=== PATIENT | male | born 1940 | race Caucasian/White ===

== ENCOUNTER 2016-12-04 11:18 | Observation (INO) ==
[2016-12-04] MEDS ORDERED: PROMETHAZINE 25 MG/1 ML VIAL IM STA (11:46)
[2016-12-04] MEDS ORDERED: MEPERIDINE 50 MG/1 ML VIAL IM STA (11:46)
[2016-12-04] MEDS ORDERED: DEXAMETHASONE 4 MG/1 ML VIAL IM STA (11:47)
[2016-12-04] MEDS ORDERED: PROMETHAZINE 25 MG/1 ML VIAL ONE (11:52)
[2016-12-04] MEDS ORDERED: MEPERIDINE 50 MG/1 ML VIAL ONE (11:52)
[2016-12-04] MEDS ORDERED: DEXAMETHASONE 4 MG/1 ML VIAL ONE (11:52)
[2016-12-04] MEDS ORDERED: ONDANSETRON 4 MG/2 ML VIAL IV PRN (12:16)
[2016-12-04] MEDS ORDERED: HYDROmorphone 2 MG/1 ML VIAL IV PRN (12:16)
[2016-12-04] MEDS ORDERED: ACETAMINOPHEN 325 MG TABLET PO PRN (12:16)
--- NOTE | 2016-12-04 12:24 | Emergency Department Note ---
Addendum entered and electronically signed by Deion Purcell MD 12/04/16 12:14: Patient does not want to go home and wants to be admitted to the hospital. Patient discussed with Dr. Abbott and will admit for a pain management and a pain management consult. Original Note: Lázaro Villatoro Hilary, am scribing for, and in the presence of, Deion Purcell MD 11:46. Binh Villatoro Phillip K, MD, personally performed the services described in this documentation, ascribed by Maria Elena Sesay in my presence, and it is both accurate and complete . Arrival - Arrival Chief Complaint: Back Stated Complaint: back ED Nursing Triage Note: Pt comes from home with chronic back pain. Pt received 100mcg fentanyl prior to arrival. Pt has known sciatica nerve pain that radiates down the right leg. Mode of Arrival: Stretcher Limitations: No Limitations Source: Patient, RN Notes Reviewed - History of Present Illness HPI Narrative: Pt is a 76 y/o male brought into the ED via EMS with c/o chronic back pain which onset 3 weeks ago. Per EMS he received 100mcg fentanyl prior to arrival. Pt confirms back pain with radiation down left leg but denies any He reports taking ibuprofen, flexeril, prednisone, tramadol. Pt has a PMHx of sciatica nerve pain, dyslipidemia. No other complaints or problems stated in the ED. Allergies/Adverse Reactions: Allergies Allergy/AdvReac Type Severity Reaction Status Date / Time No Known Allergies Allergy Verified 12/03/16 07:10 Home Medications: Home Medications Medication Instructions Recorded Confirmed Type Levothyroxine Tab [Synthroid Tab] 75 mcg PO DAILY@0700 02/27/15 12/04/16 History Meloxicam 7.5 mg PO DAILY 02/27/15 12/04/16 History Simvastatin 40 mg PO DAILY 02/27/15 12/04/16 History Terazosin [Hytrin] 5 mg PO BEDTIME 02/27/15 12/04/16 History traMADol TAB [Ultram] 50 mg PO DIRECTED PRN 12/02/16 12/04/16 History Oxycodone HCl/Acetaminophen 1 each PO Q6HR PRN #30 tablet 12/04/16 Rx [Percocet 7.5-325 mg Tablet] Medical,Surgical,& Family Hx - Medical History Neurology: No history of: Seizures HEENT: History of: Eye Problem (GLASSES/CATARACTS/MACULAR DEGENERATION RT-No Sight) Endocrine: History of: Dyslipidemia, Thyroid Disorder Respiratory: Comment Only: Respiratory Problems (FLU VAC Apr 2016 with Pneum Vac) Genitourinary: History of: Prostate Problems (BPH) Gastrointestinal: History of: Diverticulitis/ Diverticulosis (OVER 10-12 YRS AGO ), Polyps (X2) Musculoskeletal: History of: Back/Neck Problems (Due for MRI 12/11/16; Low Back Pain Radiating down Lt Leg), Musculoskeletal Problems (ARTHRITIS) Hematology: No history of: Blood Transfusion Reaction (BLOOD TRANSFUSIONS) Other: No history of: Anesthesia Reactions, Cancer - Surgical History HEENT Surgeries: Surgical HX of: Eye Surgery (CATARACT LT EYE 02/28/15; 12/03/16 Sched for Rt Cataract), Tonsilectomy & Adenoidectomy Abdominal Surgeries: Surgical HX of: Abdominal Surgery, Colonoscopy ([place]), Hernia Repair (X3 UMBILICAL/RT & LT INGUINAL) - Family History Family History: Reports;: Family Cancer (FATHER) - Social History Smoking Status: Current every day smoker Frequency of Alcohol Use: None Type of Drug Use: None Exam Vital Signs: Vital Signs Temperature 96.4 F L 12/04/16 11:20 Pulse Rate 62 12/04/16 11:20 Respiratory Rate 20 12/04/16 11:20 Blood Pressure 152/62 12/04/16 11:20 O2 Sat by Pulse Oximetry 98 12/04/16 11:20 - General General appearance: alert, in no apparent distress - Head Head exam: Present: atraumatic, normocephalic - Eye Eye exam: Present: normal appearance, PERRL, EOMI - ENT ENT exam: Present: mucous membranes moist, TM's normal bilaterally. Absent: mucous membranes dry - Neck Neck exam: Present: full ROM, trachea midline. Absent: tenderness - Chest Chest inspection: Present: symmetric chest wall rise. Absent: tenderness - Respiratory Respiratory exam: Present: normal lung sounds bilaterally. Absent: respiratory distress - Cardiovascular Cardiovascular exam: Present: regular rate, normal rhythm, normal heart sounds. Absent: murmur, rubs, gallop - Abdominal Exam Abdominal exam: Present: soft, normal bowel sounds. Absent: distention, tenderness - Extremities Exam Extremities exam: Present: full ROM. Absent: tenderness - Back Exam Back exam: Present: full ROM. Absent: tenderness, straight leg raise (L) - Neurological Exam Neurological exam: Present: alert, oriented X3, CN II-XII intact. Absent: motor sensory deficit, reflexes normal (absent left knee jerk) - Psychiatric Psychiatric exam: Present: normal affect, normal mood - Skin Skin exam: Present: warm, dry, intact, normal color. Absent: rash Disposition Clinical Impression: Lumbar radiculopathy Case discussed with: patient, patient's family Disposition: Disch To Home/Self Care Condition: Stable Additional Instructions: Bed rest on firm bed. Heating pad to back. Continue medications. MRI scan next week. Prescriptions: Oxycodone HCl/Acetaminophen [Percocet 7.5-325 mg Tablet] 1 each PO Q6HR PRN #30 tablet PRN Reason: Pain Moderate To Severe (4-10)
[2016-12-04] MEDS ORDERED: traMADol 50 MG TABLET PO PRN (18:41)
--- NOTE | 2016-12-04 19:39 | XRay Report ---
XR lumbar spine complete Indication: Severe low back pain. Comparison: None. Technique: AP, lateral, bilateral oblique images of the lumbar spine with additional spot lateral image of the lumbar sacral junction were submitted. Findings: There is subtle anterolisthesis of L4 on L5 is present. Minimal loss of intervertebral disc space at L3-4 is demonstrated. Loss of facet joint spaces from L3-4 through L5-S1 appears moderate. No acute fractures are present. Diffuse intimal calcification of the aorta and iliac arteries is present. Impression: 1. Degenerative changes are present as detailed. There is no evidence of acute osseous pathology. 12/04/2016 7:35 PM PROCEDURE INTERPRETED AT [facility] DEPARTMENT OF RADIOLOGY Final Report Signed by: Dr. John Medellin
[2016-12-04] MEDS: DOCUSATE SODIUM 100 MG CAPSULE PO SCH (21:16)
[2016-12-04] MEDS: TERAZOSIN 5 MG CAPSULE PO SCH (21:16)
[2016-12-05 05:02] LABS: Apearance,Urine CLEAR (Clear); Bilirubin,Urine Negative (Negative); Blood, Urine Negative (Negative); Glucose,Urine (UA) Negative (Negative); Ketones,Urine Negative (Negative); Mucus,Urine Occasional /LPF (Occasional); Nitrite,Urine Negative (Negative); Protein,Urine Negative; RBC,Urine 3 /HPF (0-4); Urine Color Yellow (Yellow); Urine Specific Gravity 1.018 (1.001-1.035); Urine Urobilinogen < 2.0 EU/DL (0.2-1.0); WBC,Urine <1 /HPF (0-6)
[2016-12-05] MEDS: LEVOTHYROXINE 75 MCG TABLET PO SCH (06:12)
[2016-12-05 06:56] LABS: Basophils % 0.2 % (0.0-0.8); Hemoglobin 16.7 GM/DL (14.0-18.0); Immature Granulocytes Absolute 0.17 #; Lymphocytes # 1.8 10*3/uL (1.4-4.0); Lymphocytes % 10.8 % (21.2-54.2); Mean Corpuscular HGB Conc 34.1 GM/DL (32-36); Mean Corpuscular Hemoglobin 31 PG (27-34); Mean Corpuscular Volume 90.7 FL (87-102); Mean Platelet Volume 10.6 FL (9.6-12.0); Monocytes # 0.8 10*3/uL (0.11-0.8); Neutrophils # 13.6 10*3/uL (1.4-7.4); Platelet Count 248 T/CUMM (130-400); White Blood Count 16.4 T/CUMM (4-12)
[2016-12-05 07:40] LABS: Calcium 8.8 MG/DL (8.5-10.1); Magnesium 2.4 MG/DL (1.8-2.4); Osmolality,Calculated 284.3 MOS/KG (273-304); Potassium 4.8 MMOL/L (3.5-5.1); Risk Ratio 2.76; VLDL CHOLESTEROL 23.2 MG/DL
--- NOTE | 2016-12-05 07:52 | Family Practice History&Phys ---
Assessment and Plan (1) Severe low back pain Status: Acute Assessment and plan: We will admit for pain control MRI and further evaluation Current Visit: Yes (2) Lumbar radiculopathy Status: Acute Assessment and plan: Patient pain radiates into left leg and foot Current Visit: Yes (3) Macular degeneration Status: Chronic Assessment and plan: Stable at present Current Visit: Yes (4) Hyperlipidemia Status: Chronic Assessment and plan: Stable on present meds Current Visit: Yes (5) Hypothyroid Status: Chronic Assessment and plan: Stable at present Current Visit: Yes History of Present Illness Chief complaint: Severe low back pain History of present illness: Mr. Garcia is a 76 year old male Pt is a 76 y/o male brought into the ED via EMS with c/o chronic back pain which onset 3 weeks ago. Per EMS he received 100mcg fentanyl prior to arrival. Pt confirms back pain with radiation down left leg but denies any He reports taking ibuprofen, flexeril, prednisone, tramadol. Pt has a PMHx of sciatica nerve pain, dyslipidemia. No other complaints or problems stated in the time of admission. Patient was unable to stand or move the time of admission. He was brought to the emergency department by ambulance. He was unable to stand or walk. Inferior degree of pain was admitted for evaluation therapy Home Medications Medication Instructions Recorded Confirmed Type Levothyroxine Tab [Synthroid Tab] 75 mcg PO DAILY@0700 02/27/15 12/04/16 History Meloxicam 7.5 mg PO DAILY 02/27/15 12/04/16 History Simvastatin 40 mg PO BEDTIME 02/27/15 12/04/16 History Terazosin [Hytrin] 5 mg PO BEDTIME 02/27/15 12/04/16 History traMADol TAB [Ultram] 50 mg PO DIRECTED PRN 12/02/16 12/04/16 History Moxifloxacin 0.5% Oph Soln 1 drop RIGHT EYE TID 12/04/16 12/04/16 History [Vigamox 0.5% Oph Soln] prednisoLONE acetate [PrednisoLONE 1 drop RIGHT EYE TID 12/04/16 12/04/16 History Acetate 1% Oph Susp] Allergies Allergy/AdvReac Type Severity Reaction Status Date / Time No Known Allergies Allergy Verified 12/03/16 07:10 Medical,Surgical,& Family Hx - Medical History Neurology: No history of: Seizures HEENT: History of: Eye Problem (GLASSES/CATARACTS/MACULAR DEGENERATION RT-No Sight) Endocrine: History of: Dyslipidemia, Thyroid Disorder Respiratory: History of: Obstructive Sleep Apnea (25-30 years ago) Comment Only: Respiratory Problems (FLU VAC Apr 2016 with Pneum Vac) Genitourinary: History of: Prostate Problems (BPH) Gastrointestinal: History of: Diverticulitis/ Diverticulosis (OVER 10-12 YRS AGO ), Polyps (X2) Musculoskeletal: History of: Back/Neck Problems (Due for MRI 12/11/16; Low Back Pain Radiating down Lt Leg), Musculoskeletal Problems (ARTHRITIS) No history of: Amputation Hematology: No history of: Blood Transfusion Reaction (BLOOD TRANSFUSIONS) Other: No history of: Anesthesia Reactions, Cancer - Surgical History Cardiac Surgeries: Patient Denies: Cardiac Catheterization Thoracic Surgeries: Patient denies;: Organ Transplant, Lobectomy Neurologic Surgeries: Patient denies: Neurologic Surgery HEENT Surgeries: Surgical HX of: Eye Surgery (CATARACT LT EYE 02/28/15; 12/03/16 Sched for Rt Cataract), Tonsilectomy & Adenoidectomy Abdominal Surgeries: Surgical HX of: Abdominal Surgery, Colonoscopy ([place]), Hernia Repair (X3 UMBILICAL/RT & LT INGUINAL) - Family History Family History: Reports;: Family Cancer (FATHER) - Social History Smoking Status: Current every day smoker Frequency of Alcohol Use: None Type of Drug Use: None Marital Status: Lives With:: Spouse Functional capacity: independent ambulation Exam - Constitutional Vitals: Period Temp Pulse Resp BP Sys/Hebert Pulse Ox Last 24 Hr 96.4 F-98.2 F 50-76 15-20 125-176/57-82 92-98 General appearance: mild distress - Head Head exam: Present: normal inspection - ENT ENT exam: Present: normal exam - Neck Neck exam: Present: normal inspection - Respiratory Respiratory exam: Present: clear to auscultation bilaterally - Cardiovascular Cardiovascular exam: Present: regular rate and rhythm - GI/Abdominal GI/Abdominal exam: Present: normal bowel sounds, soft - Extremities Exam Extremities exam: Present: full ROM - Back Exam Back exam: Present: other (Decreased range of motion all johnson with positive straight leg raising on the left at 30 positive straight leg raise on the right 40 degrees) - Neurological Exam Neurological exam: Present: alert - Psychiatric Psychiatric exam: Present: normal affect - Skin Skin exam: Present: normal color Results - Labs CBC & BMP: 12/05/16 05:51 12/05/16 05:51
--- NOTE | 2016-12-05 09:13 | Pain Management Consult Note ---
Assessment and Plan (1) Lumbar radiculopathy Problem details: 2-1/2 weeks left lower extremity pain Status: Acute Assessment and plan: 12/05/2016. The patient very pleasant 76-year-old male with 2-1/2 weeks left lower extremity pain. Pain started spontaneously. He has both sensory and motor deficits in the left leg. The motor weakness is minimal. His x-rays demonstrate spondylolisthesis grade 1L45 and L5-S1. Degenerative disc disease and spondylosis present. MRI pending. He likely will respond well to conservative treatment. Will start low-dose Neurontin. He is using minimal as needed opioids at this point. The steroids he received have been helpful. If he continues to do well please consider continued care as an outpatient and we can plan injection in the clinic early next week. I will be out of town next 3 days but will follow him remotely and call after the MRI and will leave note after study. y Current Visit: Yes History of Present Illness Chief complaint: Low back and left leg pain History of present illness: Mr. Garcia is a 76 year old male with a 2-1/2 week history of low back and left leg pain. He denies injury. The pain is a severe cramping stabbing shooting pain. Gradually getting worse over time. Yesterday he got to the point that he can no longer stand and was intolerable. The pain is worse with activity and trying to walk. The pain is somewhat better today. Home Medications Medication Instructions Recorded Confirmed Type Levothyroxine Tab [Synthroid Tab] 75 mcg PO DAILY@0700 02/27/15 12/04/16 History Meloxicam 7.5 mg PO DAILY 02/27/15 12/04/16 History Simvastatin 40 mg PO BEDTIME 02/27/15 12/04/16 History Terazosin [Hytrin] 5 mg PO BEDTIME 02/27/15 12/04/16 History traMADol TAB [Ultram] 50 mg PO Q4H PRN 12/02/16 12/05/16 History Moxifloxacin 0.5% Oph Soln 1 drop RIGHT EYE TID 12/04/16 12/04/16 History [Vigamox 0.5% Oph Soln] prednisoLONE acetate [PrednisoLONE 1 drop RIGHT EYE TID 12/04/16 12/04/16 History Acetate 1% Oph Susp] Allergies Allergy/AdvReac Type Severity Reaction Status Date / Time No Known Allergies Allergy Verified 12/03/16 07:10 Medical,Surgical,& Family Hx - Medical History Neurology: No history of: Seizures HEENT: History of: Eye Problem (GLASSES/CATARACTS/MACULAR DEGENERATION RT-No Sight) Endocrine: History of: Dyslipidemia, Thyroid Disorder Respiratory: History of: Obstructive Sleep Apnea (25-30 years ago) Comment Only: Respiratory Problems (FLU VAC Apr 2016 with Pneum Vac) Genitourinary: History of: Prostate Problems (BPH) Gastrointestinal: History of: Diverticulitis/ Diverticulosis (OVER 10-12 YRS AGO ), Polyps (X2) Musculoskeletal: History of: Back/Neck Problems (Due for MRI 12/11/16; Low Back Pain Radiating down Lt Leg), Musculoskeletal Problems (ARTHRITIS) No history of: Amputation Hematology: No history of: Blood Transfusion Reaction (BLOOD TRANSFUSIONS) Other: No history of: Anesthesia Reactions, Cancer - Surgical History Cardiac Surgeries: Patient Denies: Cardiac Catheterization Thoracic Surgeries: Patient denies;: Organ Transplant, Lobectomy Neurologic Surgeries: Patient denies: Neurologic Surgery HEENT Surgeries: Surgical HX of: Eye Surgery (CATARACT LT EYE 02/28/15; 12/03/16 Sched for Rt Cataract), Tonsilectomy & Adenoidectomy Abdominal Surgeries: Surgical HX of: Abdominal Surgery, Colonoscopy ([place]), Hernia Repair (X3 UMBILICAL/RT & LT INGUINAL) - Family History Family History: Reports;: Family Cancer (FATHER) - Social History Smoking Status: Current every day smoker Frequency of Alcohol Use: None Type of Drug Use: None - Constitutional Constitutional: Present: lethargy - Gastrointestinal Gastrointestinal: Present: constipation - Musculoskeletal Musculoskeletal: Present: back pain, muscle cramps, muscle weakness (Reports possible left lower extremity weakness) - Neurological Neurological: Present: numbness (Left lower extremity), paresthesias Exam - Constitutional Vitals: Period Temp Pulse Resp BP Sys/Hebert Pulse Ox Last 24 Hr 96.4 F-98.2 F 50-76 15-20 125-176/57-82 92-98 General appearance: normal weight, no acute distress - Eye Eye exam: Present: EOMI - Respiratory Respiratory exam: Present: clear to auscultation bilaterally - Cardiovascular Cardiovascular exam: Present: RRR - GI/Abdominal GI/Abdominal exam: Present: hypoactive bowel sounds - Back Exam Back exam: Present: vertebral tenderness - Neurological Exam Neurological exam: Present: alert, oriented X3, motor sensory deficit (Some weakness left foot, sensory loss left L5-S1 dermatomes, straight leg marginally +80) - Skin Skin exam: Present: normal color Results - Labs CBC & BMP: 12/05/16 05:51 12/05/16 05:51
--- NOTE | 2016-12-05 10:35 | Magnetic Resonance Report ---
Exam: MR lumbar spine wo con Date: 12/05/2016 6:33 PM Comparison: Lumbosacral spine x-ray 12/04/2016 Indication: Low back pain with left leg radiculopathy Technique: Multiple acquisitions were obtained including sagittal T1, T2, STIR, and axial T1 and T2 scans. Scans were obtained on a 1.5 Karen magnet. Findings: 3 mm anterolisthesis of L4 relationship to L5. No acute fracture is identified with chronic appearing small oral's nodes. Diffuse disc degeneration. The conus has a normal appearance and terminates at the level of L2. The disc spaces are as follows: T12-L1: Central osteophyte/disc complex which compresses the thecal sac. No spinal stenosis or foraminal stenosis. L1-L2: No disc protrusion, spinal stenosis, or foraminal stenosis. L2-L3: Diffuse osteophyte/disc complex which contacts the thecal sac and extends posterolaterally bilaterally. No spinal stenosis with minimal bilateral foraminal stenosis. Degenerative changes in the facet joints. L3-L4: Diffuse osteophyte/disc complex which compresses the thecal sac and extends posterolaterally bilaterally. No spinal stenosis with moderate bilateral foraminal stenosis. Degenerative changes in the facet joints. L4-L5: Diffuse osteophyte/disc complex which compresses the thecal sac and extends posterior laterally bilaterally. There is a free fragment which extends behind the left side of L4 with foraminal extension and compression of the L4 nerve root. Minimal spinal stenosis with minimal right and moderate left foraminal stenosis. Degenerative changes of the facet joints. L5-S1: Diffuse osteophyte/disc complex which contacts the thecal sac. No spinal stenosis with minimal bilateral foraminal stenosis. Degenerative changes in the facet joints. Impression: No acute fracture. Grade 1 spondylolisthesis at L4-L5. Multilevel DDD as above noted. PROCEDURE INTERPRETED AT [facility] DEPARTMENT OF RADIOLOGY Final Report Signed by: Dr. Ktaya Muhammad
[2016-12-05] MEDS: DOCUSATE SODIUM 100 MG CAPSULE PO SCH ×2 (13:00→20:44)
[2016-12-05] MEDS: PANTOPRAZOLE 40 MG TABLET PO SCH (13:00)
[2016-12-05] MEDS: SIMVASTATIN 40 MG TABLET PO SCH (13:00)
[2016-12-05] MEDS: methylPREDNISolone SOD SUC 40 MG/1 ML VIAL IV SCH ×2 (13:21→19:45)
[2016-12-05] MEDS: BACLOFEN 10 MG TABLET PO SCH ×2 (15:33→20:44)
[2016-12-05] MEDS: GABAPENTIN 300 MG CAPSULE PO SCH ×2 (15:34→20:44)
[2016-12-05] MEDS: TERAZOSIN 5 MG CAPSULE PO SCH (20:44)
--- NOTE | 2016-12-05 20:56 | Event Note ---
MRI demonstrates lateral left desk herniation with free fragment. this is consistent with his area of pain.The fragment is relatively small but in A lateral position with some impingement on the left L4 nerve root.I do think that there is a good chance that this will respond to conservative treatment. Will plan on a transforaminal epidural steroid injection early next week at this effected level. this can certainly be done as in outpatient.
[2016-12-06] MEDS: methylPREDNISolone SOD SUC 40 MG/1 ML VIAL IV SCH (00:18)
[2016-12-06 03:52] LABS: Calcium 9.3 MG/DL (8.5-10.1); Osmolality,Calculated 286.3 MOS/KG (273-304); Potassium 4.3 MMOL/L (3.5-5.1)
[2016-12-06] MEDS: LEVOTHYROXINE 75 MCG TABLET PO SCH (06:04)
--- NOTE | 2016-12-06 07:36 | Discharge Summary ---
Hospital Course - Hospital Course Hospital Course: Patient 76-year-old white male developed severe low back pain radiating down his left leg. Patient states she is feeling 150% better at present. Patient had MRI that showed a disc fragment protruding at L4-5 and compressing his left nerve root. Patient's been seen by Dr. Alexei Lopez is better with present medications and he plans on seeing him in the office and doing a lumbar epidural steroid injection sometime next week. Patient is agreeable with this plan and certainly wants to avoid surgery if possible. He denies any loss of function and states he is walking quite well now. Diagnosis - Discharge Diagnosis (1) Lumbar radiculopathy Status: Acute Discharge Plan - Discharge Data Disposition: Disch To Home/Self Care Condition at Discharge: Stable Discharge Diet: advance to your usual diet Activity: no lifting, no prolonged standing Hygiene: no restrictions Weight Bearing at Discharge: full weight bearing Driving: no restrictions Contact your physician if you experience:: fever over 101 - Discharge Medications New Acetaminophen Tab [Tylenol Tab] 650 mg PO Q6H PRN tablet PRN Reason: Fever > 100.4 Or Headache Baclofen Tab [Lioresal] 10 mg PO TID #90 tablet Gabapentin Cap/Tab [Neurontin Cap/Tab] 300 mg PO TID #90 capsule Levothyroxine Tab [Synthroid Tab] 75 mcg PO DAILY@0700 tablet Simvastatin [Zocor] 40 mg PO DAILY tablet Terazosin [Hytrin] 5 mg PO BEDTIME #30 capsule HYDROcodone/ACETAMIN 5-325 [[place] 5-325] 2 tablet PO Q4H PRN #60 tablet PRN Reason: Pain Moderate (4-7) traMADol TAB [Ultram] 50 mg PO Q4H PRN tablet PRN Reason: Pain Continue Meloxicam 7.5 mg PO DAILY prednisoLONE acetate [PrednisoLONE Acetate 1% Oph Susp] 1 drop RIGHT EYE TID Moxifloxacin 0.5% Oph Soln [Vigamox 0.5% Oph Soln] 1 drop RIGHT EYE TID Discontinued Terazosin [Hytrin] 5 mg PO BEDTIME Simvastatin 40 mg PO BEDTIME Levothyroxine Tab [Synthroid Tab] 75 mcg PO DAILY@0700 traMADol TAB [Ultram] 50 mg PO Q4H PRN PRN Reason: Pain - Follow Up or Referral Follow Up: Alexei Lopez MD [Physician] - 1 Week Denny Abbott DO [Primary Care Provider] - 2 Weeks - Forms/Instructions Exam - Constitutional Vitals: Period Temp Pulse Resp BP Sys/Hebert Pulse Ox Last 24 Hr 97.7 F-98.7 F 52-77 16-20 133-156/68-84 93-97 Exam: Objectively well-developed gentleman in no acute distress. He states he is feeling 100% better. Cardiovascular: Heart rates regular without murmurs or gallops. Respiratory: The lungs clear to auscultation bilaterally. Abdomen: Abdomen soft and nontender to palpation. Neuro: Patient has symmetrical strength in both lower extremities. Discharge Results Labs on day of discharge: Labs from last 24 hours 12/06/16 12/05/16 02:28 05:51 Sodium 141 141 Potassium 4.3 4.8 Chloride 107 106 Carbon Dioxide 23 26 Anion Gap 15.3 H 13.8 BUN 24 H 25 H Creatinine 0.90 1.00 GFR Calculation 96 84 BUN/Creatinine Ratio 26.00 H 25.00 H Glucose 139 H 106 Calculated Osmolality 286.3 284.3 Calcium 9.3 8.8 Magnesium 2.4 Triglycerides 116 Cholesterol 138 LDL Cholesterol 75.0 VLDL Cholesterol 23.2 HDL Cholesterol 50 Heart Disease Risk Ratio 2.76 Jadon DS: Provider Date of admission: 12/04/16 12:15 Primary care physician: Denny Abbott DO Attending physician on admission: Denny Abbott DO Consults: 12/04/16 12:16 Consult to Case Mgmt/Social Srvs [CONS] Routine Reason for Case Mgmt/Social Srvs: Discharge Planning 12/04/16 12:17 Consult to Physician [CONS] Routine Comment: Consulting Provider: 12/04/16 18:36 Consult to Physician [CONS] Routine Comment: severe low back pain Consulting Provider: Alexei Lopez Person Notified: [email or web address] Date Notified: 12/05/16 Time Notified: 08:31 12/04/16 18:40 Consult to Physical Therapy [CONS] Routine Reason for Physical Therapy: Evaluate and Treat Start Therapy: Tomorrow Consult Comment: low back pain Discharging clinician: Marlon Solorzano MD Expected date of discharge: 12/06/16
[2016-12-06] MEDS: BACLOFEN 10 MG TABLET PO SCH (10:04)
[2016-12-06] MEDS: SIMVASTATIN 40 MG TABLET PO SCH (10:05)
[2016-12-06] MEDS: GABAPENTIN 300 MG CAPSULE PO SCH (10:05)
[2016-12-06] MEDS: DOCUSATE SODIUM 100 MG CAPSULE PO SCH (10:05)
[2016-12-06] MEDS: PANTOPRAZOLE 40 MG TABLET PO SCH (10:06)
[2016-12-06 20:38] VITALS: BP 127/61
== END 2016-12-06 13:05 | disposition home or self-care (01) ==
LOC: EDBD → EDUNIT# → N.EDINP 11:18 → N.ED 11:18 → N.EDINP 15:16 → N.2E 16:54
PROVIDERS: ADMIT Family Medicine; ATTEND Family Medicine

== ENCOUNTER 2017-05-25 12:23 | Inpatient (IN) ==
[2017-06-02 15:33] LABS: Basophils # 0.1 10*3/uL (0.0-0.2); Basophils % 1.1 % (0.0-0.8); Eosinophils # 0.1 10*3/uL (0.0-0.87); Eosinophils % 1.2 % (0.00-10.9); Hematocrit 45.5 VOL% (42.0-52.0); Hemoglobin 15.3 GM/DL (14.0-18.0); Immature Granulocytes % 0.2 %; Immature Granulocytes Absolute 0.02 #; Lymphocytes # 2.8 10*3/uL (1.4-4.0); Lymphocytes % 33.3 % (21.2-54.2); Mean Corpuscular HGB Conc 33.6 GM/DL (32-36); Mean Corpuscular Hemoglobin 31 PG (27-34); Mean Corpuscular Volume 91.4 FL (87-102); Mean Platelet Volume 10.1 FL (9.6-12.0); Monocytes # 0.7 10*3/uL (0.11-0.8); Monocytes % 8.6 % (1.7-12.7); Neutrophils # 4.6 10*3/uL (1.4-7.4); Neutrophils % 55.6 % (38.7-73.9); Platelet Count 230 T/CUMM (130-400); Red Blood Count 4.98 MC/CUMM (3.8-5.5); Red Cell Distribution Width 12.6 % (9.3-17.3); White Blood Count 8.3 T/CUMM (4-12)
[2017-06-02 15:44] LABS: Apearance,Urine Slightly Hazy (Clear); Bilirubin,Urine Negative (Negative); Blood, Urine Negative (Negative); Glucose,Urine (UA) Negative (Negative); Ketones,Urine Negative (Negative); Mucus,Urine Occasional /LPF (Occasional); Nitrite,Urine Negative (Negative); Protein,Urine Negative; RBC,Urine 1 /HPF (0-4); Urine Color Yellow (Yellow); Urine Specific Gravity 1.017 (1.001-1.035); Urine Urobilinogen < 2.0 EU/DL (0.2-1.0)
[2017-06-02 15:46] LABS: PT Patient Result 10.7 SECS; Partial Thromboplastin Time 25.1 SECS (0-40)
[2017-06-02 15:50] LABS: Calcium 9.3 MG/DL (8.5-10.1); Magnesium 2.4 MG/DL (1.8-2.4); Osmolality,Calculated 288.7 MOS/KG (273-304); Potassium 5.1 MMOL/L (3.5-5.1)
[2017-06-11] MEDS ORDERED: CEFUROXIME INJ 1,500 MG in SYRINGE 1 EACH IV ONE (05:00)
[2017-06-11] MEDS ORDERED: ACETAMINOPHEN INJ 1,000 MG in PREMIX 1 EACH IV ONE (05:00)
[2017-06-11] MEDS ORDERED: TISSUE ADHESIVE 1 EACH APPLICATOR TOP ONE ×2 (05:56→13:11)
[2017-06-11] MEDS ORDERED: BUPIVACAINE LIPOSOMAL 20 ML/266 MG VIAL ONE (05:57)
[2017-06-11] MEDS ORDERED: LACTATED RINGERS 1,000 ML IV SCH (06:00)
[2017-06-11] MEDS ORDERED: SODIUM CHLORIDE 0.9% 1,000 ML IV PRN ×2 (06:01→18:22)
[2017-06-11] MEDS ORDERED: ACETAMINOPHEN 1,000 MG/100 ML VIAL IV ONE (06:03)
[2017-06-11] MEDS ORDERED: CEFUROXIME 1,500 MG VIAL ONE (06:03)
[2017-06-11] MEDS ORDERED: THROMBIN TOPICAL (RECOMBINANT) 5,000 UNIT VIAL TOP ONE (12:46)
[2017-06-11] MEDS ORDERED: ONDANSETRON 4 MG/2 ML VIAL IV PRN ×2 (13:40→14:19)
[2017-06-11] MEDS ORDERED: PROPOFOL 200 MG/20 ML VIAL IV ONE (13:51)
[2017-06-11] MEDS ORDERED: fentaNYL 100 MCG/2 ML VIAL ONE ×2 (13:51→13:52)
[2017-06-11] MEDS ORDERED: MIDAZOLAM 2 MG/2 ML VIAL ONE (13:51)
[2017-06-11] MEDS ORDERED: GLYCOPYRROLATE 0.4 MG/2 ML VIAL ONE ×2 (13:52)
[2017-06-11] MEDS ORDERED: ONDANSETRON 4 MG/2 ML VIAL ONE (13:52)
[2017-06-11] MEDS ORDERED: KETOROLAC 30 MG/1 ML VIAL ONE (13:52)
[2017-06-11] MEDS ORDERED: ePHEDrine 50 MG/ML AMP ONE (13:52)
[2017-06-11] MEDS ORDERED: DEXAMETHASONE 10 MG/1 ML VIAL ONE (13:52)
[2017-06-11] MEDS ORDERED: PHENYLEPHRINE 50 MG/5 ML VIAL ONE (13:52)
[2017-06-11] MEDS ORDERED: SUCCINYLCHOLINE 200 MG/10 ML VIAL ONE (13:53)
[2017-06-11] MEDS ORDERED: ROCURONIUM 100 MG/10 ML VIAL IV ONE (13:53)
[2017-06-11] MEDS ORDERED: LACTATED RINGERS 2,000 ML IV ONE (13:55)
[2017-06-11] MEDS ORDERED: SODIUM CHLORIDE 0.9% 250 ML IV ONE (13:55)
[2017-06-11] MEDS ORDERED: SEVOFLURANE 1 UNIT/15 MINUTE INH ONE (13:55)
[2017-06-11 14:21] LABS: Basophils % 0.1 % (0.0-0.8); Hematocrit 40.9 VOL% (42.0-52.0); Immature Granulocytes % 0.6 %; Immature Granulocytes Absolute 0.09 #; Lymphocytes # 0.7 10*3/uL (1.4-4.0); Lymphocytes % 4.8 % (21.2-54.2); Mean Corpuscular HGB Conc 34.2 GM/DL (32-36); Mean Corpuscular Hemoglobin 31 PG (27-34); Mean Corpuscular Volume 90.1 FL (87-102); Mean Platelet Volume 10.6 FL (9.6-12.0); Monocytes # 0.7 10*3/uL (0.11-0.8); Monocytes % 4.6 % (1.7-12.7); Neutrophils # 13.4 10*3/uL (1.4-7.4); Neutrophils % 89.9 % (38.7-73.9); Platelet Count 200 T/CUMM (130-400); Red Blood Count 4.54 MC/CUMM (3.8-5.5); Red Cell Distribution Width 12.7 % (9.3-17.3); White Blood Count 14.9 T/CUMM (4-12)
[2017-06-11] MEDS: HYDROmorphone 2 MG/1 ML VIAL IV PRN ×2 (14:22→14:27)
[2017-06-11] MEDS: KETOROLAC 15 MG/1 ML VIAL IV SCH ×4 (14:35→23:23)
[2017-06-11 14:45] LABS: Calcium 8.1 MG/DL (8.5-10.1); Osmolality,Calculated 283.4 MOS/KG (273-304); Potassium 4.5 MMOL/L (3.5-5.1)
[2017-06-11 15:43] LABS: Band Neutrophils 1 % (0-10); Lymphocytes 5 % (20-55); Platelet Estimate Normal; Segmented Neutrophils 91 % (50-85); Total Cells Counted 100
[2017-06-11] MEDS: SODIUM CHLORIDE 0.9% 1,000 ML IV SCH (16:45)
[2017-06-11] MEDS: GABAPENTIN 100 MG CAPSULE PO SCH ×2 (17:11→20:34)
[2017-06-11] MEDS ORDERED: NALOXONE 0.4 MG/ML VIAL IV PRN (17:11)
[2017-06-11] MEDS: HYDROmorphone PCA 30 MG/30 ML SYRINGE IV SCH (17:30)
[2017-06-11] MEDS: ACETAMINOPHEN INJ 1,000 MG in PREMIX 1 EACH IV SCH (20:34)
[2017-06-11 21:37] LABS: Apearance,Urine CLEAR (Clear); Protein,Urine Negative; Urine Color Yellow (Yellow); Urine Specific Gravity 1.015 (1.001-1.035)
[2017-06-11 21:38] LABS: Bilirubin,Urine Negative (Negative); Blood, Urine Negative (Negative); Glucose,Urine (UA) Negative (Negative); Hyaline Casts,Urine 1 /LPF (0-3); Ketones,Urine Negative (Negative); Mucus,Urine Occasional /LPF (Occasional); Nitrite,Urine Negative (Negative); Urine Urobilinogen < 2.0 EU/DL (0.2-1.0)
[2017-06-11] MEDS: CEFUROXIME INJ 1,500 MG in SYRINGE 1 EACH IV SCH (23:22)
[2017-06-12] MEDS: SODIUM CHLORIDE 0.9% 1,000 ML IV SCH ×2 (00:45→09:23)
[2017-06-12] MEDS: ACETAMINOPHEN INJ 1,000 MG in PREMIX 1 EACH IV SCH (00:48)
[2017-06-12] MEDS: KETOROLAC 15 MG/1 ML VIAL IV SCH ×4 (04:32→23:01)
[2017-06-12 04:55] LABS: Basophils % 0.2 % (0.0-0.8); Hematocrit 38.5 VOL% (42.0-52.0); Hemoglobin 12.9 GM/DL (14.0-18.0); Immature Granulocytes % 0.4 %; Immature Granulocytes Absolute 0.05 #; Lymphocytes # 1.5 10*3/uL (1.4-4.0); Lymphocytes % 11.8 % (21.2-54.2); Mean Corpuscular HGB Conc 33.5 GM/DL (32-36); Mean Corpuscular Hemoglobin 31 PG (27-34); Mean Corpuscular Volume 92.3 FL (87-102); Mean Platelet Volume 10.3 FL (9.6-12.0); Monocytes # 1.5 10*3/uL (0.11-0.8); Monocytes % 11.8 % (1.7-12.7); Neutrophils # 9.8 10*3/uL (1.4-7.4); Neutrophils % 75.8 % (38.7-73.9); Platelet Count 190 T/CUMM (130-400); Red Blood Count 4.17 MC/CUMM (3.8-5.5); White Blood Count 12.9 T/CUMM (4-12)
[2017-06-12] MEDS: PHENOL 1.4% THROAT SPRAY 177 ML BOTTLE PO PRN (04:58)
[2017-06-12 05:03] LABS: Calcium 7.9 MG/DL (8.5-10.1); Osmolality,Calculated 285.1 MOS/KG (273-304); Potassium 4.4 MMOL/L (3.5-5.1)
[2017-06-12] MEDS: ACETAMINOPHEN 500 MG TABLET PO SCH ×3 (09:11→21:15)
[2017-06-12] MEDS: GABAPENTIN 100 MG CAPSULE PO SCH ×3 (09:12→21:15)
[2017-06-12] MEDS: ENOXAPARIN 40 MG/0.4 ML SYRINGE SUBCUT SCH (09:13)
[2017-06-12] MEDS: PANTOPRAZOLE 40 MG VIAL IV SCH (09:13)
[2017-06-12] MEDS: CEFUROXIME INJ 1,500 MG in SYRINGE 1 EACH IV SCH (10:38)
[2017-06-12] MEDS: HYDROmorphone PCA 30 MG/30 ML SYRINGE IV SCH (18:12)
[2017-06-12] MEDS: TERAZOSIN 5 MG CAPSULE PO SCH (21:14)
[2017-06-12] MEDS: BACLOFEN 10 MG TABLET PO SCH (21:14)
[2017-06-12] MEDS: tiZANidine 4 MG TABLET PO SCH (21:14)
[2017-06-13] MEDS: ACETAMINOPHEN 500 MG TABLET PO SCH ×4 (02:16→22:22)
[2017-06-13] MEDS: ALBUTEROL 2.5 MG/3 ML NEB RESP TX PRN (02:42)
[2017-06-13 03:58] LABS: Basophils # 0.1 10*3/uL (0.0-0.2); Basophils % 0.5 % (0.0-0.8); Eosinophils # 0.2 10*3/uL (0.0-0.87); Eosinophils % 1.3 % (0.00-10.9); Hematocrit 34.8 VOL% (42.0-52.0); Hemoglobin 11.7 GM/DL (14.0-18.0); Immature Granulocytes % 0.3 %; Immature Granulocytes Absolute 0.03 #; Lymphocytes # 2.4 10*3/uL (1.4-4.0); Lymphocytes % 19.8 % (21.2-54.2); Mean Corpuscular HGB Conc 33.6 GM/DL (32-36); Mean Corpuscular Hemoglobin 31 PG (27-34); Mean Corpuscular Volume 91.8 FL (87-102); Mean Platelet Volume 10.9 FL (9.6-12.0); Monocytes % 8.5 % (1.7-12.7); Neutrophils # 8.3 10*3/uL (1.4-7.4); Neutrophils % 69.6 % (38.7-73.9); Platelet Count 160 T/CUMM (130-400); Red Blood Count 3.79 MC/CUMM (3.8-5.5); White Blood Count 11.9 T/CUMM (4-12)
[2017-06-13] MEDS: KETOROLAC 15 MG/1 ML VIAL IV SCH ×2 (04:58→11:51)
[2017-06-13 05:03] LABS: Calcium 7.8 MG/DL (8.5-10.1); Osmolality,Calculated 284.4 MOS/KG (273-304); Potassium 3.9 MMOL/L (3.5-5.1)
[2017-06-13] MEDS: LEVOTHYROXINE 75 MCG TABLET PO SCH (06:19)
[2017-06-13] MEDS: GABAPENTIN 100 MG CAPSULE PO SCH ×3 (09:47→22:22)
[2017-06-13] MEDS: SIMVASTATIN 40 MG TABLET PO SCH (09:47)
[2017-06-13] MEDS: MELOXICAM 7.5 MG TABLET PO SCH (09:47)
[2017-06-13] MEDS: tiZANidine 4 MG TABLET PO SCH ×2 (09:47→22:23)
[2017-06-13] MEDS: PANTOPRAZOLE 40 MG VIAL IV SCH (09:47)
[2017-06-13] MEDS: MULTIVITAMIN (OCUVITE) TABLET PO SCH (09:47)
[2017-06-13] MEDS: ENOXAPARIN 40 MG/0.4 ML SYRINGE SUBCUT SCH (09:47)
[2017-06-13] MEDS: POLYETHYLENE GLYCOL POWDER 17 GM PACK PO SCH (09:47)
[2017-06-13] MEDS: GABAPENTIN 300 MG CAPSULE PO SCH (10:06)
[2017-06-13] MEDS: HYDROmorphone PCA 30 MG/30 ML SYRINGE IV SCH (17:52)
[2017-06-13] MEDS: BACLOFEN 10 MG TABLET PO SCH (22:22)
[2017-06-13] MEDS: traMADol 50 MG TABLET PO PRN (22:23)
[2017-06-13] MEDS: TERAZOSIN 5 MG CAPSULE PO SCH (22:23)
[2017-06-14] MEDS: ACETAMINOPHEN 500 MG TABLET PO SCH ×4 (03:11→21:44)
[2017-06-14] MEDS: CELECOXIB 200 MG CAPSULE PO SCH ×3 (03:11→21:44)
[2017-06-14] MEDS: traMADol 50 MG TABLET PO PRN (04:45)
[2017-06-14 05:21] LABS: Basophils # 0.1 10*3/uL (0.0-0.2); Basophils % 0.5 % (0.0-0.8); Eosinophils # 0.3 10*3/uL (0.0-0.87); Eosinophils % 2.5 % (0.00-10.9); Hemoglobin 11.1 GM/DL (14.0-18.0); Immature Granulocytes % 0.6 %; Immature Granulocytes Absolute 0.07 #; Lymphocytes # 2.2 10*3/uL (1.4-4.0); Lymphocytes % 18.2 % (21.2-54.2); Mean Corpuscular HGB Conc 33.6 GM/DL (32-36); Mean Corpuscular Hemoglobin 31 PG (27-34); Mean Corpuscular Volume 91.7 FL (87-102); Mean Platelet Volume 10.6 FL (9.6-12.0); Monocytes # 1.1 10*3/uL (0.11-0.8); Monocytes % 8.9 % (1.7-12.7); Neutrophils # 8.5 10*3/uL (1.4-7.4); Neutrophils % 69.3 % (38.7-73.9); Platelet Count 151 T/CUMM (130-400); Red Cell Distribution Width 12.9 % (9.3-17.3); White Blood Count 12.2 T/CUMM (4-12)
[2017-06-14 05:38] LABS: Calcium 7.4 MG/DL (8.5-10.1); Osmolality,Calculated 281.5 MOS/KG (273-304); Potassium 4.1 MMOL/L (3.5-5.1)
[2017-06-14] MEDS: LEVOTHYROXINE 75 MCG TABLET PO SCH (06:27)
[2017-06-14] MEDS ORDERED: KETOROLAC 30 MG/1 ML VIAL IV ONE (07:31)
[2017-06-14] MEDS: ENOXAPARIN 40 MG/0.4 ML SYRINGE SUBCUT SCH (09:26)
[2017-06-14] MEDS: PANTOPRAZOLE 40 MG VIAL IV SCH (09:26)
[2017-06-14] MEDS: POLYETHYLENE GLYCOL POWDER 17 GM PACK PO SCH (09:26)
[2017-06-14] MEDS: MELOXICAM 7.5 MG TABLET PO SCH (09:26)
[2017-06-14] MEDS: GABAPENTIN 100 MG CAPSULE PO SCH ×3 (09:27→21:44)
[2017-06-14] MEDS: MULTIVITAMIN (OCUVITE) TABLET PO SCH (09:27)
[2017-06-14] MEDS: GABAPENTIN 300 MG CAPSULE PO SCH (09:27)
[2017-06-14] MEDS: SIMVASTATIN 40 MG TABLET PO SCH (09:27)
[2017-06-14] MEDS: tiZANidine 4 MG TABLET PO SCH ×2 (09:30→21:44)
[2017-06-14] MEDS ORDERED: LACTATED RINGERS 1,000 ML IV ONE (17:40)
[2017-06-14] MEDS: HYDROmorphone PCA 30 MG/30 ML SYRINGE IV SCH (17:55)
[2017-06-14] MEDS: TERAZOSIN 5 MG CAPSULE PO SCH (21:44)
[2017-06-14] MEDS: BACLOFEN 10 MG TABLET PO SCH (21:44)
[2017-06-15 05:55] LABS: Basophils % 0.4 % (0.0-0.8); Eosinophils # 0.4 10*3/uL (0.0-0.87); Eosinophils % 3.8 % (0.00-10.9); Hematocrit 31.7 VOL% (42.0-52.0); Hemoglobin 10.8 GM/DL (14.0-18.0); Immature Granulocytes % 0.6 %; Immature Granulocytes Absolute 0.06 #; Lymphocytes # 1.8 10*3/uL (1.4-4.0); Lymphocytes % 17.6 % (21.2-54.2); Mean Corpuscular HGB Conc 34.1 GM/DL (32-36); Mean Corpuscular Hemoglobin 31 PG (27-34); Mean Corpuscular Volume 91.1 FL (87-102); Mean Platelet Volume 11.4 FL (9.6-12.0); Monocytes # 0.9 10*3/uL (0.11-0.8); Monocytes % 9.1 % (1.7-12.7); Neutrophils % 68.5 % (38.7-73.9); Platelet Count 172 T/CUMM (130-400); Red Blood Count 3.48 MC/CUMM (3.8-5.5); Red Cell Distribution Width 12.8 % (9.3-17.3); White Blood Count 10.3 T/CUMM (4-12)
[2017-06-15 05:56] LABS: Calcium 7.9 MG/DL (8.5-10.1); Magnesium 2.1 MG/DL (1.8-2.4); Osmolality,Calculated 280.4 MOS/KG (273-304)
[2017-06-15] MEDS: ACETAMINOPHEN 500 MG TABLET PO SCH ×4 (06:27→20:03)
[2017-06-15] MEDS: LEVOTHYROXINE 75 MCG TABLET PO SCH (06:35)
[2017-06-15] MEDS: CELECOXIB 200 MG CAPSULE PO SCH ×2 (09:24→21:31)
[2017-06-15] MEDS: MULTIVITAMIN (OCUVITE) TABLET PO SCH (09:24)
[2017-06-15] MEDS: ENOXAPARIN 40 MG/0.4 ML SYRINGE SUBCUT SCH (09:24)
[2017-06-15] MEDS: tiZANidine 4 MG TABLET PO SCH ×2 (09:24→21:31)
[2017-06-15] MEDS: MELOXICAM 7.5 MG TABLET PO SCH (09:24)
[2017-06-15] MEDS: SIMVASTATIN 40 MG TABLET PO SCH (09:25)
[2017-06-15] MEDS: GABAPENTIN 100 MG CAPSULE PO SCH ×3 (09:25→21:31)
[2017-06-15] MEDS: METOPROLOL TARTRATE 25 MG TABLET PO SCH ×2 (09:25→21:31)
[2017-06-15] MEDS: PANTOPRAZOLE 40 MG VIAL IV SCH (09:28)
[2017-06-15] MEDS: GABAPENTIN 300 MG CAPSULE PO SCH (09:31)
[2017-06-15] MEDS: POLYETHYLENE GLYCOL POWDER 17 GM PACK PO SCH (09:32)
[2017-06-15] MEDS: traMADol 50 MG TABLET PO PRN (16:17)
[2017-06-15] MEDS: MORPHINE 2 MG/1 ML SYRINGE IV PRN ×2 (17:55→22:02)
[2017-06-15] MEDS: TERAZOSIN 5 MG CAPSULE PO SCH (21:31)
[2017-06-15] MEDS: BACLOFEN 10 MG TABLET PO SCH (21:31)
[2017-06-16] MEDS: ACETAMINOPHEN 500 MG TABLET PO SCH ×4 (02:51→19:59)
[2017-06-16] MEDS: LEVOTHYROXINE 75 MCG TABLET PO SCH (06:20)
[2017-06-16 06:49] LABS: Basophils % 0.2 % (0.0-0.8); Eosinophils # 0.3 10*3/uL (0.0-0.87); Eosinophils % 3.4 % (0.00-10.9); Hematocrit 31.5 VOL% (42.0-52.0); Hemoglobin 10.7 GM/DL (14.0-18.0); Immature Granulocytes % 1.2 %; Immature Granulocytes Absolute 0.11 #; Lymphocytes % 21.9 % (21.2-54.2); Mean Corpuscular Hemoglobin 31 PG (27-34); Mean Corpuscular Volume 90.3 FL (87-102); Mean Platelet Volume 10.7 FL (9.6-12.0); Monocytes % 11.4 % (1.7-12.7); Neutrophils # 5.6 10*3/uL (1.4-7.4); Neutrophils % 61.9 % (38.7-73.9); Platelet Count 210 T/CUMM (130-400); Red Blood Count 3.49 MC/CUMM (3.8-5.5); Red Cell Distribution Width 12.8 % (9.3-17.3); White Blood Count 9.1 T/CUMM (4-12)
[2017-06-16 06:58] LABS: Calcium 7.8 MG/DL (8.5-10.1); Magnesium 2.1 MG/DL (1.8-2.4); Osmolality,Calculated 283.3 MOS/KG (273-304)
[2017-06-16] MEDS ORDERED: diphenhydrAMINE CAP 50 MG CAPSULE ONE (07:53)
[2017-06-16] MEDS ORDERED: diphenhydrAMINE 50 MG/1 ML VIAL ONE (07:56)
[2017-06-16 08:47] LABS: ABG Base Excess 2.6 MMOL/L (-2.5-2.5); ABG HCO3 26.7 MMOL/L (20-26); ABG Oxygen Saturation 97.3 % (95-100); ABG PCO2 33.8 MM HG (35-48); ABG PH 7.487 (7.35-7.45); ABG PO2 79.6 MM HG (80-95); ABG TCO2 22.8 MMOL/L (23-27)
[2017-06-16] MEDS: METOPROLOL TARTRATE 25 MG TABLET PO SCH ×2 (10:20→21:03)
[2017-06-16] MEDS: SIMVASTATIN 40 MG TABLET PO SCH (12:00)
[2017-06-16] MEDS: tiZANidine 4 MG TABLET PO SCH ×2 (12:00→21:03)
[2017-06-16] MEDS: PANTOPRAZOLE 40 MG VIAL IV SCH (12:00)
[2017-06-16] MEDS: ENOXAPARIN 40 MG/0.4 ML SYRINGE SUBCUT SCH (12:00)
[2017-06-16] MEDS: CELECOXIB 200 MG CAPSULE PO SCH ×2 (12:00→21:04)
[2017-06-16] MEDS: GABAPENTIN 300 MG CAPSULE PO SCH (12:00)
[2017-06-16] MEDS: MELOXICAM 7.5 MG TABLET PO SCH (12:00)
[2017-06-16] MEDS: GABAPENTIN 100 MG CAPSULE PO SCH ×3 (12:00→21:04)
[2017-06-16] MEDS: POLYETHYLENE GLYCOL POWDER 17 GM PACK PO SCH (12:00)
[2017-06-16] MEDS: MULTIVITAMIN (OCUVITE) TABLET PO SCH (12:00)
[2017-06-16] MEDS: TERAZOSIN 5 MG CAPSULE PO SCH (21:03)
[2017-06-16] MEDS: BACLOFEN 10 MG TABLET PO SCH (21:04)
[2017-06-17] MEDS: ACETAMINOPHEN 500 MG TABLET PO SCH ×4 (02:21→21:15)
[2017-06-17 05:34] LABS: Basophils # 0.1 10*3/uL (0.0-0.2); Basophils % 0.5 % (0.0-0.8); Eosinophils # 0.3 10*3/uL (0.0-0.87); Eosinophils % 3.4 % (0.00-10.9); Hematocrit 34.1 VOL% (42.0-52.0); Hemoglobin 11.4 GM/DL (14.0-18.0); Immature Granulocytes % 0.6 %; Immature Granulocytes Absolute 0.06 #; Lymphocytes # 2.3 10*3/uL (1.4-4.0); Lymphocytes % 23.7 % (21.2-54.2); Mean Corpuscular HGB Conc 33.4 GM/DL (32-36); Mean Corpuscular Hemoglobin 31 PG (27-34); Mean Corpuscular Volume 91.7 FL (87-102); Mean Platelet Volume 10.5 FL (9.6-12.0); Monocytes # 0.9 10*3/uL (0.11-0.8); Monocytes % 8.9 % (1.7-12.7); Neutrophils # 6.1 10*3/uL (1.4-7.4); Neutrophils % 62.9 % (38.7-73.9); Platelet Count 248 T/CUMM (130-400); Red Blood Count 3.72 MC/CUMM (3.8-5.5); Red Cell Distribution Width 13.1 % (9.3-17.3); White Blood Count 9.7 T/CUMM (4-12)
[2017-06-17 06:12] LABS: Calcium 8.2 MG/DL (8.5-10.1); Magnesium 2.1 MG/DL (1.8-2.4); Osmolality,Calculated 283.3 MOS/KG (273-304); Potassium 4.4 MMOL/L (3.5-5.1)
[2017-06-17] MEDS: LEVOTHYROXINE 75 MCG TABLET PO SCH (07:10)
[2017-06-17] MEDS: tiZANidine 4 MG TABLET PO SCH ×2 (09:52→21:23)
[2017-06-17] MEDS: GABAPENTIN 300 MG CAPSULE PO SCH (09:52)
[2017-06-17] MEDS: MELOXICAM 7.5 MG TABLET PO SCH (09:52)
[2017-06-17] MEDS: GABAPENTIN 100 MG CAPSULE PO SCH ×3 (09:52→21:23)
[2017-06-17] MEDS: MULTIVITAMIN (OCUVITE) TABLET PO SCH (09:52)
[2017-06-17] MEDS: CELECOXIB 200 MG CAPSULE PO SCH ×2 (09:52→21:23)
[2017-06-17] MEDS: METOPROLOL TARTRATE 25 MG TABLET PO SCH ×2 (09:52→21:24)
[2017-06-17] MEDS: SIMVASTATIN 40 MG TABLET PO SCH (09:53)
[2017-06-17] MEDS: POLYETHYLENE GLYCOL POWDER 17 GM PACK PO SCH (09:53)
[2017-06-17] MEDS: PANTOPRAZOLE 40 MG VIAL IV SCH (09:54)
[2017-06-17] MEDS: ENOXAPARIN 40 MG/0.4 ML SYRINGE SUBCUT SCH (09:54)
[2017-06-17] MEDS: TERAZOSIN 5 MG CAPSULE PO SCH (21:16)
[2017-06-17] MEDS: BACLOFEN 10 MG TABLET PO SCH (21:23)
[2017-06-18] MEDS: ACETAMINOPHEN 500 MG TABLET PO SCH ×4 (02:55→21:43)
[2017-06-18 04:20] LABS: Basophils % 0.3 % (0.0-0.8); Eosinophils # 0.5 10*3/uL (0.0-0.87); Eosinophils % 3.2 % (0.00-10.9); Hematocrit 35.9 VOL% (42.0-52.0); Hemoglobin 12.2 GM/DL (14.0-18.0); Immature Granulocytes % 1.1 %; Immature Granulocytes Absolute 0.16 #; Lymphocytes # 2.3 10*3/uL (1.4-4.0); Lymphocytes % 15.8 % (21.2-54.2); Mean Corpuscular Hemoglobin 31 PG (27-34); Mean Corpuscular Volume 91.3 FL (87-102); Mean Platelet Volume 10.1 FL (9.6-12.0); Monocytes # 1.5 10*3/uL (0.11-0.8); Monocytes % 10.3 % (1.7-12.7); Neutrophils # 9.9 10*3/uL (1.4-7.4); Neutrophils % 69.3 % (38.7-73.9); Platelet Count 300 T/CUMM (130-400); Red Blood Count 3.93 MC/CUMM (3.8-5.5); Red Cell Distribution Width 13.1 % (9.3-17.3); White Blood Count 14.3 T/CUMM (4-12)
[2017-06-18 04:45] LABS: Calcium 8.4 MG/DL (8.5-10.1); Magnesium 2.1 MG/DL (1.8-2.4); Potassium 4.2 MMOL/L (3.5-5.1)
[2017-06-18] MEDS: LEVOTHYROXINE 75 MCG TABLET PO SCH (06:24)
[2017-06-18] MEDS: ALBUTEROL/IPRATROPIUM 3 ML NEB RESP TX SCH ×3 (08:32→19:50)
[2017-06-18] MEDS: GABAPENTIN 300 MG CAPSULE PO SCH (09:53)
[2017-06-18] MEDS: GABAPENTIN 100 MG CAPSULE PO SCH ×3 (09:53→21:44)
[2017-06-18] MEDS: CELECOXIB 200 MG CAPSULE PO SCH ×2 (09:53→21:44)
[2017-06-18] MEDS: tiZANidine 4 MG TABLET PO SCH ×2 (09:54→21:44)
[2017-06-18] MEDS: METOPROLOL TARTRATE 25 MG TABLET PO SCH ×2 (09:54→21:41)
[2017-06-18] MEDS: MELOXICAM 7.5 MG TABLET PO SCH (09:54)
[2017-06-18] MEDS: SIMVASTATIN 40 MG TABLET PO SCH (09:54)
[2017-06-18] MEDS: POLYETHYLENE GLYCOL POWDER 17 GM PACK PO SCH (09:54)
[2017-06-18] MEDS: MULTIVITAMIN (OCUVITE) TABLET PO SCH (09:54)
[2017-06-18] MEDS: ENOXAPARIN 40 MG/0.4 ML SYRINGE SUBCUT SCH (09:54)
[2017-06-18] MEDS: PANTOPRAZOLE 40 MG VIAL IV SCH (09:55)
[2017-06-18] MEDS: BACLOFEN 10 MG TABLET PO SCH (21:41)
[2017-06-18] MEDS: TERAZOSIN 5 MG CAPSULE PO SCH (21:41)
[2017-06-19] MEDS: ALBUTEROL/IPRATROPIUM 3 ML NEB RESP TX SCH ×4 (01:03→19:02)
[2017-06-19] MEDS: ACETAMINOPHEN 500 MG TABLET PO SCH ×4 (03:40→21:43)
[2017-06-19 08:07] LABS: Basophils # 0.1 10*3/uL (0.0-0.2); Basophils % 0.4 % (0.0-0.8); Eosinophils # 0.4 10*3/uL (0.0-0.87); Eosinophils % 3.1 % (0.00-10.9); Hemoglobin 11.4 GM/DL (14.0-18.0); Immature Granulocytes % 1.5 %; Immature Granulocytes Absolute 0.19 #; Lymphocytes # 2.3 10*3/uL (1.4-4.0); Mean Corpuscular HGB Conc 33.5 GM/DL (32-36); Mean Corpuscular Hemoglobin 30 PG (27-34); Mean Corpuscular Volume 90.4 FL (87-102); Mean Platelet Volume 9.9 FL (9.6-12.0); Monocytes # 1.2 10*3/uL (0.11-0.8); Neutrophils # 8.9 10*3/uL (1.4-7.4); Platelet Count 310 T/CUMM (130-400); Red Blood Count 3.76 MC/CUMM (3.8-5.5); Red Cell Distribution Width 13.3 % (9.3-17.3)
[2017-06-19 08:36] LABS: Calcium 8.1 MG/DL (8.5-10.1); Magnesium 2.2 MG/DL (1.8-2.4)
[2017-06-19] MEDS: MULTIVITAMIN (OCUVITE) TABLET PO SCH (09:18)
[2017-06-19] MEDS: CELECOXIB 200 MG CAPSULE PO SCH ×2 (09:18→21:43)
[2017-06-19] MEDS: LEVOTHYROXINE 75 MCG TABLET PO SCH (09:18)
[2017-06-19] MEDS: PANTOPRAZOLE 40 MG VIAL IV SCH (09:19)
[2017-06-19] MEDS: tiZANidine 4 MG TABLET PO SCH ×2 (09:19→21:44)
[2017-06-19] MEDS: SIMVASTATIN 40 MG TABLET PO SCH (09:19)
[2017-06-19] MEDS: MELOXICAM 7.5 MG TABLET PO SCH (09:19)
[2017-06-19] MEDS: GABAPENTIN 300 MG CAPSULE PO SCH (09:19)
[2017-06-19] MEDS: ENOXAPARIN 40 MG/0.4 ML SYRINGE SUBCUT SCH (09:22)
[2017-06-19] MEDS: METOPROLOL TARTRATE 25 MG TABLET PO SCH ×2 (09:22→21:43)
[2017-06-19] MEDS: GABAPENTIN 100 MG CAPSULE PO SCH ×3 (09:22→21:44)
[2017-06-19] MEDS: POLYETHYLENE GLYCOL POWDER 17 GM PACK PO SCH (09:22)
[2017-06-19] MEDS: BACLOFEN 10 MG TABLET PO SCH (21:43)
[2017-06-19] MEDS: TERAZOSIN 5 MG CAPSULE PO SCH (21:44)
[2017-06-20] MEDS: ACETAMINOPHEN 500 MG TABLET PO SCH ×4 (04:18→21:50)
[2017-06-20 04:35] LABS: Basophils # 0.1 10*3/uL (0.0-0.2); Basophils % 0.5 % (0.0-0.8); Eosinophils # 0.4 10*3/uL (0.0-0.87); Eosinophils % 3.3 % (0.00-10.9); Hematocrit 30.9 VOL% (42.0-52.0); Hemoglobin 10.3 GM/DL (14.0-18.0); Immature Granulocytes % 1.5 %; Lymphocytes # 2.3 10*3/uL (1.4-4.0); Lymphocytes % 17.6 % (21.2-54.2); Mean Corpuscular HGB Conc 33.3 GM/DL (32-36); Mean Corpuscular Hemoglobin 30 PG (27-34); Mean Corpuscular Volume 90.6 FL (87-102); Mean Platelet Volume 9.9 FL (9.6-12.0); Monocytes # 1.1 10*3/uL (0.11-0.8); Monocytes % 8.6 % (1.7-12.7); Neutrophils % 68.5 % (38.7-73.9); Platelet Count 321 T/CUMM (130-400); Red Blood Count 3.41 MC/CUMM (3.8-5.5); Red Cell Distribution Width 13.3 % (9.3-17.3); White Blood Count 13.2 T/CUMM (4-12)
[2017-06-20 05:20] LABS: Calcium 8.2 MG/DL (8.5-10.1); Magnesium 2.1 MG/DL (1.8-2.4)
[2017-06-20] MEDS: LEVOTHYROXINE 75 MCG TABLET PO SCH (06:13)
[2017-06-20] MEDS: ALBUTEROL/IPRATROPIUM 3 ML NEB RESP TX SCH ×4 (08:04→20:12)
[2017-06-20] MEDS: ENOXAPARIN 40 MG/0.4 ML SYRINGE SUBCUT SCH (08:42)
[2017-06-20] MEDS: SIMVASTATIN 40 MG TABLET PO SCH (08:44)
[2017-06-20] MEDS: MULTIVITAMIN (OCUVITE) TABLET PO SCH (08:44)
[2017-06-20] MEDS: MELOXICAM 7.5 MG TABLET PO SCH (08:44)
[2017-06-20] MEDS: tiZANidine 4 MG TABLET PO SCH ×2 (08:44→21:50)
[2017-06-20] MEDS: GABAPENTIN 300 MG CAPSULE PO SCH (08:44)
[2017-06-20] MEDS: CELECOXIB 200 MG CAPSULE PO SCH ×2 (08:44→21:50)
[2017-06-20] MEDS: GABAPENTIN 100 MG CAPSULE PO SCH ×3 (08:44→21:51)
[2017-06-20] MEDS: METOPROLOL TARTRATE 25 MG TABLET PO SCH ×2 (08:44→21:51)
[2017-06-20] MEDS: PANTOPRAZOLE 40 MG VIAL IV SCH (08:45)
[2017-06-20] MEDS: POLYETHYLENE GLYCOL POWDER 17 GM PACK PO SCH (08:45)
[2017-06-20] MEDS ORDERED: FUROSEMIDE 40 MG/4 ML VIAL IV ONE (10:54)
[2017-06-20] MEDS: BACLOFEN 10 MG TABLET PO SCH (21:51)
[2017-06-20] MEDS: TERAZOSIN 5 MG CAPSULE PO SCH (21:51)
[2017-06-21] MEDS: ALBUTEROL/IPRATROPIUM 3 ML NEB RESP TX SCH ×4 (00:47→20:07)
[2017-06-21] MEDS: ACETAMINOPHEN 500 MG TABLET PO SCH ×4 (04:01→21:31)
[2017-06-21 05:53] LABS: Calcium 8.1 MG/DL (8.5-10.1); Magnesium 2.2 MG/DL (1.8-2.4); Potassium 4.1 MMOL/L (3.5-5.1)
[2017-06-21 06:08] LABS: Basophils # 0.1 10*3/uL (0.0-0.2); Basophils % 0.3 % (0.0-0.8); Eosinophils # 0.3 10*3/uL (0.0-0.87); Eosinophils % 1.1 % (0.00-10.9); Hematocrit 30.4 VOL% (42.0-52.0); Hemoglobin 10.1 GM/DL (14.0-18.0); Immature Granulocytes % 0.9 %; Immature Granulocytes Absolute 0.21 #; Lymphocytes % 8.6 % (21.2-54.2); Mean Corpuscular HGB Conc 33.2 GM/DL (32-36); Mean Corpuscular Hemoglobin 31 PG (27-34); Mean Corpuscular Volume 91.8 FL (87-102); Mean Platelet Volume 10.2 FL (9.6-12.0); Monocytes # 1.7 10*3/uL (0.11-0.8); Monocytes % 7.6 % (1.7-12.7); Neutrophils # 18.6 10*3/uL (1.4-7.4); Neutrophils % 81.5 % (38.7-73.9); Platelet Count 360 T/CUMM (130-400); Red Blood Count 3.31 MC/CUMM (3.8-5.5); Red Cell Distribution Width 13.7 % (9.3-17.3); White Blood Count 22.9 T/CUMM (4-12)
[2017-06-21] MEDS: LEVOTHYROXINE 75 MCG TABLET PO SCH (06:09)
[2017-06-21 07:34] LABS: Band Neutrophils 2 % (0-10); Lymphocytes 6 % (20-55); Segmented Neutrophils 84 % (50-85); Total Cells Counted 100
[2017-06-21 07:35] LABS: Hypochromasia 1+; Platelet Estimate Adequate
[2017-06-21] MEDS: CELECOXIB 200 MG CAPSULE PO SCH ×2 (09:21→21:31)
[2017-06-21] MEDS: SIMVASTATIN 40 MG TABLET PO SCH (09:21)
[2017-06-21] MEDS: MULTIVITAMIN (OCUVITE) TABLET PO SCH (09:21)
[2017-06-21] MEDS: ENOXAPARIN 40 MG/0.4 ML SYRINGE SUBCUT SCH (09:21)
[2017-06-21] MEDS: METOPROLOL TARTRATE 25 MG TABLET PO SCH ×2 (09:21→21:31)
[2017-06-21] MEDS: GABAPENTIN 300 MG CAPSULE PO SCH (09:22)
[2017-06-21] MEDS: GABAPENTIN 100 MG CAPSULE PO SCH ×3 (09:22→21:31)
[2017-06-21] MEDS: tiZANidine 4 MG TABLET PO SCH ×2 (09:22→21:31)
[2017-06-21] MEDS: POLYETHYLENE GLYCOL POWDER 17 GM PACK PO SCH (09:22)
[2017-06-21] MEDS: PANTOPRAZOLE 40 MG VIAL IV SCH (09:26)
[2017-06-21] MEDS: MELOXICAM 7.5 MG TABLET PO SCH (09:26)
[2017-06-21] MEDS ORDERED: ALBUMIN 25% 25 GM in PREMIX 1 EACH IV ONE (14:43)
[2017-06-21] MEDS ORDERED: ALBUMIN 25% 12.5 GM in PREMIX 1 EACH IV ONE (14:48)
[2017-06-21] MEDS: CLORAZEPATE 3.75 MG TABLET PO SCH ×2 (14:54→21:31)
[2017-06-21] MEDS ORDERED: ALBUMIN 5% 12.5 GM in PREMIX 1 EACH IV ONE (15:00)
[2017-06-21] MEDS: FUROSEMIDE 40 MG/4 ML VIAL IV SCH (15:44)
[2017-06-21] MEDS: BACLOFEN 10 MG TABLET PO SCH (21:31)
[2017-06-21] MEDS: TERAZOSIN 5 MG CAPSULE PO SCH (21:31)
[2017-06-22] MEDS ORDERED: LACTATED RINGERS 1,000 ML IV ONE (00:27)
[2017-06-22] MEDS ORDERED: SODIUM CHLORIDE 0.9% IV SCH (00:30)
[2017-06-22] MEDS ORDERED: VANCOMYCIN IV SCH (00:30)
[2017-06-22] MEDS: ALBUTEROL 2.5 MG/3 ML NEB RESP TX PRN ×2 (00:34→08:51)
[2017-06-22] MEDS: PHENOL 1.4% THROAT SPRAY 177 ML BOTTLE PO PRN (01:45)
[2017-06-22] MEDS: PIPERACILLIN/TAZOBACTAM 3,375 MG in SODIUM CHLORIDE 0.9% 100 ML IV SCH ×3 (01:49→18:44)
[2017-06-22] MEDS: ACETAMINOPHEN 500 MG TABLET PO SCH ×4 (01:53→20:52)
[2017-06-22] MEDS: ALBUTEROL 2.5 MG/3 ML NEB RESP TX SCH ×2 (04:20→07:12)
[2017-06-22] MEDS: LEVOTHYROXINE 75 MCG TABLET PO SCH (05:40)
[2017-06-22] MEDS: VANCOMYCIN INJ 1,250 MG in SODIUM CHLORIDE 0.45% 250 ML IV SCH ×2 (05:47→18:44)
[2017-06-22 06:03] LABS: Basophils # 0.1 10*3/uL (0.0-0.2); Basophils % 0.2 % (0.0-0.8); Eosinophils # 0.3 10*3/uL (0.0-0.87); Eosinophils % 1.6 % (0.00-10.9); Hemoglobin 9.6 GM/DL (14.0-18.0); Immature Granulocytes Absolute 0.21 #; Lymphocytes # 1.3 10*3/uL (1.4-4.0); Lymphocytes % 6.6 % (21.2-54.2); Mean Corpuscular HGB Conc 33.1 GM/DL (32-36); Mean Corpuscular Hemoglobin 30 PG (27-34); Mean Corpuscular Volume 90.6 FL (87-102); Mean Platelet Volume 9.6 FL (9.6-12.0); Monocytes # 1.5 10*3/uL (0.11-0.8); Monocytes % 7.6 % (1.7-12.7); Neutrophils # 16.6 10*3/uL (1.4-7.4); Platelet Count 359 T/CUMM (130-400); Red Cell Distribution Width 13.8 % (9.3-17.3)
[2017-06-22 06:53] LABS: Band Neutrophils 3 % (0-10); Lymphocytes 12 % (20-55); Platelet Estimate Adequate; Segmented Neutrophils 82 % (50-85); Total Cells Counted 100
[2017-06-22 06:54] LABS: Atypical Lymphocytes Few; Giant Platelets Few; Hypochromasia 1+; Microcytosis Slight
[2017-06-22 06:58] LABS: Magnesium 2.2 MG/DL (1.8-2.4); Potassium 4.1 MMOL/L (3.5-5.1)
[2017-06-22] MEDS ORDERED: PROMETHAZINE 25 MG/1 ML VIAL IM ONE (07:15)
[2017-06-22] MEDS ORDERED: MEPERIDINE 50 MG/1 ML VIAL IM ONE (07:15)
[2017-06-22] MEDS ORDERED: MIDAZOLAM 2 MG/2 ML VIAL ONE (07:31)
[2017-06-22] MEDS ORDERED: MIDAZOLAM 2 MG/2 ML VIAL IV ONE (07:45)
[2017-06-22] MEDS ORDERED: LIDOCAINE 1% 20 ML VIAL MISC INJ ONE (07:45)
[2017-06-22] MEDS ORDERED: LIDOCAINE 2% 20 ML VIAL RESP TX ONE (07:45)
[2017-06-22] MEDS ORDERED: LIDOCAINE 2% VISCOUS 100 ML BOTTLE SWISH/SPIT ONE (07:45)
[2017-06-22] MEDS ORDERED: ALBUTEROL/IPRATROPIUM 3 ML NEB RESP TX ONE (11:12)
[2017-06-22] MEDS: CLORAZEPATE 3.75 MG TABLET PO SCH (11:16)
[2017-06-22] MEDS: tiZANidine 4 MG TABLET PO SCH ×2 (11:17→20:53)
[2017-06-22] MEDS: MELOXICAM 7.5 MG TABLET PO SCH (11:17)
[2017-06-22] MEDS: GABAPENTIN 100 MG CAPSULE PO SCH (11:17)
[2017-06-22] MEDS: MULTIVITAMIN (OCUVITE) TABLET PO SCH (11:17)
[2017-06-22] MEDS: SIMVASTATIN 40 MG TABLET PO SCH (11:17)
[2017-06-22] MEDS: METOPROLOL TARTRATE 25 MG TABLET PO SCH ×2 (11:17→20:53)
[2017-06-22] MEDS: CELECOXIB 200 MG CAPSULE PO SCH ×2 (11:17→20:53)
[2017-06-22] MEDS: FUROSEMIDE 40 MG/4 ML VIAL IV SCH ×2 (11:18→18:43)
[2017-06-22] MEDS: PANTOPRAZOLE 40 MG VIAL IV SCH (11:18)
[2017-06-22] MEDS: POLYETHYLENE GLYCOL POWDER 17 GM PACK PO SCH (11:18)
[2017-06-22] MEDS: ENOXAPARIN 40 MG/0.4 ML SYRINGE SUBCUT SCH (11:18)
[2017-06-22] MEDS: GABAPENTIN 300 MG CAPSULE PO SCH (11:19)
[2017-06-22] MEDS: methylPREDNISolone SOD SUC 40 MG/1 ML VIAL IV SCH ×2 (11:24→18:44)
[2017-06-22 12:02] LABS: Troponin I Only 0.031 NG/ML (0.00-0.045)
[2017-06-22] MEDS ORDERED: FUROSEMIDE 40 MG/4 ML VIAL IV ONE ×2 (12:31→14:01)
[2017-06-22] MEDS: ALBUTEROL/IPRATROPIUM 3 ML NEB RESP TX SCH ×2 (13:33→19:28)
[2017-06-22 14:31] LABS: ABG Base Excess 1.9 MMOL/L (-2.5-2.5); ABG Oxygen Saturation 91.9 % (95-100); ABG PCO2 35.5 MM HG (35-48); ABG PH 7.463 (7.35-7.45); ABG PO2 59.7 MM HG (80-95); ABG TCO2 23.2 MMOL/L (23-27)
[2017-06-22 17:41] LABS: Troponin I Only 0.035 NG/ML (0.00-0.045)
[2017-06-22 18:02] LABS: ABG HCO3 26.1 MMOL/L (20-26); ABG Oxygen Saturation 92.7 % (95-100); ABG PCO2 34.2 MM HG (35-48); ABG PO2 58.8 MM HG (80-95); ABG TCO2 27.1 MMOL/L (23-27)
[2017-06-22] MEDS: LISINOPRIL 2.5 MG TABLET PO SCH (20:27)
[2017-06-22] MEDS: DIAZEPAM 5 MG TABLET PO SCH (20:28)
[2017-06-22] MEDS: BACLOFEN 10 MG TABLET PO SCH (20:53)
[2017-06-22] MEDS: TERAZOSIN 5 MG CAPSULE PO SCH (20:53)
[2017-06-23] MEDS: ALBUTEROL/IPRATROPIUM 3 ML NEB RESP TX SCH ×3 (00:08→13:11)
[2017-06-23 00:44] LABS: Troponin I Only 0.029 NG/ML (0.00-0.045)
[2017-06-23] MEDS: methylPREDNISolone SOD SUC 40 MG/1 ML VIAL IV SCH ×2 (00:58→11:23)
[2017-06-23] MEDS: PIPERACILLIN/TAZOBACTAM 3,375 MG in SODIUM CHLORIDE 0.9% 100 ML IV SCH ×2 (01:01→15:17)
[2017-06-23] MEDS: ACETAMINOPHEN 500 MG TABLET PO SCH ×3 (03:11→15:17)
[2017-06-23 05:04] LABS: Basophils % 0.1 % (0.0-0.8); Hematocrit 31.3 VOL% (42.0-52.0); Hemoglobin 10.2 GM/DL (14.0-18.0); Immature Granulocytes % 0.9 %; Immature Granulocytes Absolute 0.21 #; Lymphocytes # 0.9 10*3/uL (1.4-4.0); Lymphocytes % 3.8 % (21.2-54.2); Mean Corpuscular HGB Conc 32.6 GM/DL (32-36); Mean Corpuscular Hemoglobin 30 PG (27-34); Mean Corpuscular Volume 91.5 FL (87-102); Mean Platelet Volume 9.8 FL (9.6-12.0); Monocytes % 4.3 % (1.7-12.7); Neutrophils # 20.6 10*3/uL (1.4-7.4); Neutrophils % 90.9 % (38.7-73.9); Platelet Count 418 T/CUMM (130-400); Red Blood Count 3.42 MC/CUMM (3.8-5.5); Red Cell Distribution Width 14.3 % (9.3-17.3); White Blood Count 22.6 T/CUMM (4-12)
[2017-06-23 05:34] LABS: Calcium 8.2 MG/DL (8.5-10.1); Magnesium 2.6 MG/DL (1.8-2.4); Potassium 4.1 MMOL/L (3.5-5.1)
[2017-06-23 05:45] LABS: Band Neutrophils 2 % (0-10); Hypochromasia 1+; Lymphocytes 2 % (20-55); Microcytosis Slight; Platelet Estimate Increased; Segmented Neutrophils 95 % (50-85); Total Cells Counted 100
[2017-06-23] MEDS: VANCOMYCIN INJ 1,250 MG in SODIUM CHLORIDE 0.45% 250 ML IV SCH (06:15)
[2017-06-23] MEDS: LEVOTHYROXINE 75 MCG TABLET PO SCH (06:19)
[2017-06-23] MEDS ORDERED: SPIRONOLACTONE 25 MG TABLET PO SCH (10:30)
[2017-06-23] MEDS: ENOXAPARIN 40 MG/0.4 ML SYRINGE SUBCUT SCH (11:22)
[2017-06-23] MEDS: FUROSEMIDE 40 MG/4 ML VIAL IV SCH (11:23)
[2017-06-23] MEDS: LISINOPRIL 2.5 MG TABLET PO SCH (11:24)
[2017-06-23] MEDS: MULTIVITAMIN (OCUVITE) TABLET PO SCH (11:24)
[2017-06-23] MEDS: PANTOPRAZOLE 40 MG VIAL IV SCH (11:24)
[2017-06-23] MEDS: MELOXICAM 7.5 MG TABLET PO SCH (11:25)
[2017-06-23] MEDS: GABAPENTIN 300 MG CAPSULE PO SCH (11:25)
[2017-06-23] MEDS: METOPROLOL TARTRATE 25 MG TABLET PO SCH (11:25)
[2017-06-23] MEDS: SIMVASTATIN 40 MG TABLET PO SCH (11:26)
[2017-06-23] MEDS: DIAZEPAM 5 MG TABLET PO SCH (11:26)
[2017-06-23] MEDS: CELECOXIB 200 MG CAPSULE PO SCH (11:26)
[2017-06-23] MEDS: tiZANidine 4 MG TABLET PO SCH (11:27)
[2017-06-23] MEDS: POLYETHYLENE GLYCOL POWDER 17 GM PACK PO SCH (11:34)
[2017-06-23 15:02] VITALS: BP 132/56
== END 2017-06-23 15:45 | DRG 163 ==
LOC: N.SDSINP 06-11 05:39 → N.ICU 06-11 09:52 → N.TELES 06-12 16:35 → N.CVR 06-16 08:26 → N.ICU 06-16 12:34 → N.TELES 06-18 16:14 → N.ICU 06-22 15:33
PROVIDERS: ADMIT Thoracic Surgery (Cardiothoracic Vascular Surgery); ATTEND Thoracic Surgery (Cardiothoracic Vascular Surgery)

== ENCOUNTER 2017-07-12 10:03 | Inpatient (IN) ==
[2017-07-12] MEDS ORDERED: PHENYLEPHRINE DRIP 40 MG/250 ML PREMIX IV ONE (10:30)
[2017-07-12] MEDS ORDERED: SODIUM CHLORIDE 0.9% 1,000 ML IV STA ×2 (11:01→11:53)
[2017-07-12 11:08] LABS: Basophils # 0.1 10*3/uL (0.0-0.2); Basophils % 0.6 % (0.0-0.8); Eosinophils # 0.2 10*3/uL (0.0-0.87); Eosinophils % 1.8 % (0.00-10.9); Hematocrit 34.9 VOL% (42.0-52.0); Immature Granulocytes % 2.2 %; Immature Granulocytes Absolute 0.24 #; Lymphocytes # 1.2 10*3/uL (1.4-4.0); Lymphocytes % 11.3 % (21.2-54.2); Mean Corpuscular HGB Conc 31.5 GM/DL (32-36); Mean Corpuscular Hemoglobin 29 PG (27-34); Mean Corpuscular Volume 92.1 FL (87-102); Mean Platelet Volume 10.2 FL (9.6-12.0); Monocytes # 0.9 10*3/uL (0.11-0.8); Monocytes % 8.6 % (1.7-12.7); Neutrophils # 8.2 10*3/uL (1.4-7.4); Neutrophils % 75.5 % (38.7-73.9); Platelet Count 243 T/CUMM (130-400); Red Blood Count 3.79 MC/CUMM (3.8-5.5); Red Cell Distribution Width 14.5 % (9.3-17.3); White Blood Count 10.9 T/CUMM (4-12)
[2017-07-12] MEDS: PHENYLEPHRINE DRIP 40 MG/250 ML PREMIX IV SCH (11:32)
[2017-07-12 11:36] LABS: Band Neutrophils 9 % (0-10); Eosinophils 2 % (0-10); Hypochromasia 1+; Lymphocytes 13 % (20-55); Microcytosis Slight; Segmented Neutrophils 69 % (50-85); Total Cells Counted 100
[2017-07-12 11:40] LABS: Blood Urea Nitrogen 62 MG/DL (7-18); Calcium 8.1 MG/DL (8.5-10.1); Glucose 129 MG/DL (74-106); Osmolality,Calculated 292.8 MOS/KG (273-304); Potassium 4.6 MMOL/L (3.5-5.1); Sodium 137 MMOL/L (136-145)
[2017-07-12 11:45] LABS: Lactic Acid 2.3 MMOL/L (0.4-2.0)
[2017-07-12] MEDS ORDERED: VANCOMYCIN INJ 1,000 MG in SODIUM CHLORIDE 0.9% 250 ML IV PRN (12:00)
[2017-07-12] MEDS ORDERED: PIPERACILLIN/TAZOBACTAM 3,375 MG VIAL IV ONE (12:35)
[2017-07-12 12:52] LABS: PT Patient Result 10.8 SECS
[2017-07-12] MEDS: PIPERACILLIN/TAZOBACTAM 3,375 MG in SODIUM CHLORIDE 0.9% 100 ML IV SCH ×2 (13:21→21:45)
[2017-07-12 13:35] LABS: Apearance,Urine CLOUDY (Clear); Bilirubin,Urine Negative (Negative); Blood, Urine Small mg/dL (Negative); Glucose,Urine (UA) Negative (Negative); Ketones,Urine Negative (Negative); Mucus,Urine Occasional /LPF (Occasional); Nitrite,Urine Negative (Negative); Protein,Urine Negative; RBC,Urine 7 /HPF (0-4); Squamous Epithelial Cell,Urine Occasional /HPF (0-10); Urine Color Yellow (Yellow); Urine Specific Gravity 1.017 (1.001-1.035); Urine Urobilinogen < 2.0 EU/DL (0.2-1.0); WBC,Urine 8 /HPF (0-6)
[2017-07-12 16:15] LABS: Lactic Acid 2.6 MMOL/L (0.4-2.0)
[2017-07-12] MEDS: SODIUM CHLORIDE 0.9% 1,000 ML IV SCH (16:51)
[2017-07-12] MEDS ORDERED: VANCOMYCIN INJ 1,000 MG in SODIUM CHLORIDE 0.9% 250 ML IV ONE (17:00)
[2017-07-12] MEDS ORDERED: PHENOL 1.4% THROAT SPRAY 177 ML BOTTLE PO PRN (17:04)
[2017-07-12] MEDS ORDERED: ACETAMINOPHEN 650 MG SUPP RECTAL PRN (17:04)
[2017-07-12] MEDS ORDERED: COLLAGENASE OINT 30 GM TUBE TOP PRN (17:04)
[2017-07-12] MEDS ORDERED: MAGNESIUM HYDROXIDE SUSP 30 ML UDCUP PO PRN (17:04)
[2017-07-12] MEDS: ALBUTEROL/IPRATROPIUM 3 ML NEB RESP TX SCH (20:46)
[2017-07-12] MEDS: BACLOFEN 10 MG TABLET PO SCH (21:20)
[2017-07-12] MEDS: CLINDAMYCIN INJ 300 MG in PREMIX 1 EACH IV SCH (21:20)
[2017-07-12] MEDS: DICYCLOMINE 10 MG CAPSULE PO SCH (21:20)
[2017-07-12] MEDS: NYSTATIN 500,000 UNIT/5 ML UDCUP SWISH/SWAL SCH (21:20)
[2017-07-13] MEDS: ALBUTEROL/IPRATROPIUM 3 ML NEB RESP TX SCH ×4 (01:16→19:55)
[2017-07-13] MEDS: PHENYLEPHRINE DRIP 40 MG/250 ML PREMIX IV SCH ×2 (02:57→14:28)
[2017-07-13] MEDS: SODIUM CHLORIDE 0.9% 1,000 ML IV SCH ×3 (03:01→18:05)
[2017-07-13] MEDS: CLINDAMYCIN INJ 300 MG in PREMIX 1 EACH IV SCH ×2 (03:20→18:03)
[2017-07-13 03:51] LABS: Albumin 1.4 G/DL (3.4-5.0); Bilirubin,Total 0.5 MG/DL (0.2-1.0); Calcium 7.7 MG/DL (8.5-10.1); Magnesium 2.3 MG/DL (1.8-2.4); Osmolality,Calculated 297.1 MOS/KG (273-304); Potassium 5.2 MMOL/L (3.5-5.1); Total Protein 4.4 G/DL (6.4-8.3)
[2017-07-13 03:55] LABS: ABG Base Excess -3.1 MMOL/L (-2.5-2.5); ABG HCO3 21.3 MMOL/L (20-26); ABG Oxygen Saturation 96.5 % (95-100); ABG PCO2 35.6 MM HG (35-48); ABG PH 7.394 (7.35-7.45); ABG PO2 78.8 MM HG (80-95); ABG TCO2 22.4 MMOL/L (23-27)
[2017-07-13] MEDS: PIPERACILLIN/TAZOBACTAM 3,375 MG in SODIUM CHLORIDE 0.9% 100 ML IV SCH ×2 (04:12→18:04)
[2017-07-13] MEDS: LEVOTHYROXINE 75 MCG TABLET PO SCH (06:37)
[2017-07-13] MEDS ORDERED: prednisoLONE 5 MG TABLET PO SCH (09:00)
[2017-07-13] MEDS ORDERED: SODIUM POLYSTYRENE SULFATE 15 GM/60 ML BOTTLE PO STA (10:14)
[2017-07-13 10:21] LABS: Troponin I Only 0.053 NG/ML (0.00-0.045)
[2017-07-13] MEDS: DICYCLOMINE 10 MG CAPSULE PO SCH ×3 (10:59→20:53)
[2017-07-13] MEDS: NYSTATIN 500,000 UNIT/5 ML UDCUP SWISH/SWAL SCH ×4 (10:59→20:53)
[2017-07-13] MEDS: ALBUMIN 25% 25 GM in PREMIX 1 EACH IV SCH ×2 (11:02→18:04)
[2017-07-13 13:12] LABS: Calcium 7.6 MG/DL (8.5-10.1); Osmolality,Calculated 291.4 MOS/KG (273-304); Potassium 5.1 MMOL/L (3.5-5.1)
[2017-07-13] MEDS: SERTRALINE 25 MG TABLET PO SCH (14:30)
[2017-07-13 15:34] LABS: Allen Test Positive
[2017-07-13 15:42] LABS: ABG Base Excess -3.3 MMOL/L (-2.5-2.5); ABG HCO3 21.6 MMOL/L (20-26); ABG Oxygen Saturation 96.7 % (95-100); ABG PCO2 34.4 MM HG (35-48); ABG PH 7.393 (7.35-7.45); ABG PO2 75.1 MM HG (80-95); ABG TCO2 19.3 MMOL/L (23-27)
[2017-07-13] MEDS: POLYETHYLENE GLYCOL POWDER 255 GM BOTTLE PO SCH (18:03)
[2017-07-13 19:05] LABS: Apearance,Urine Slightly Hazy (Clear); Bacteria,Urine Occasional /HPF (Few); Bilirubin,Urine Negative (Negative); Blood, Urine Small mg/dL (Negative); Glucose,Urine (UA) Negative (Negative); Granular Casts,Urine 4 /LPF (0-1); Hyaline Casts,Urine 2 /LPF (0-3); Ketones,Urine Negative (Negative); Mucus,Urine Occasional /LPF (Occasional); Nitrite,Urine Negative (Negative); Protein,Urine Negative; RBC,Urine 1 /HPF (0-4); Urine Color Yellow (Yellow); Urine Urobilinogen < 2.0 EU/DL (0.2-1.0); WBC,Urine <1 /HPF (0-6)
[2017-07-13 19:21] LABS: Creatinine,Urine Random 56 MG/DL; Urea Nitrogen, Urine Random 534 MG/DL
[2017-07-13] MEDS: SODIUM ACETATE 50 MEQ in SODIUM CHLORIDE 0.45% 1,000 ML IV SCH (20:04)
[2017-07-13] MEDS: BACLOFEN 10 MG TABLET PO SCH (20:53)
[2017-07-14] MEDS: ALBUTEROL/IPRATROPIUM 3 ML NEB RESP TX SCH ×4 (00:30→20:20)
[2017-07-14] MEDS: CLINDAMYCIN INJ 300 MG in PREMIX 1 EACH IV SCH ×2 (00:47→10:19)
[2017-07-14] MEDS: PIPERACILLIN/TAZOBACTAM 3,375 MG in SODIUM CHLORIDE 0.9% 100 ML IV SCH ×4 (03:00→18:37)
[2017-07-14] MEDS: ALBUMIN 25% 25 GM in PREMIX 1 EACH IV SCH ×3 (03:01→18:37)
[2017-07-14 04:13] LABS: ABG Base Excess -0.7 MMOL/L (-2.5-2.5); ABG HCO3 23.7 MMOL/L (20-26); ABG Oxygen Saturation 91.3 % (95-100); ABG PCO2 35.4 MM HG (35-48); ABG PH 7.426 (7.35-7.45); ABG PO2 55.9 MM HG (80-95); ABG TCO2 21.4 MMOL/L (23-27); Allen Test Positive
[2017-07-14 04:55] LABS: Basophils % 0.3 % (0.0-0.8); Eosinophils # 0.2 10*3/uL (0.0-0.87); Eosinophils % 2.8 % (0.00-10.9); Hematocrit 27.8 VOL% (42.0-52.0); Hemoglobin 8.7 GM/DL (14.0-18.0); Immature Granulocytes % 3.4 %; Immature Granulocytes Absolute 0.21 #; Mean Corpuscular HGB Conc 31.3 GM/DL (32-36); Mean Corpuscular Hemoglobin 29 PG (27-34); Mean Corpuscular Volume 92.4 FL (87-102); Mean Platelet Volume 10.9 FL (9.6-12.0); Monocytes # 0.6 10*3/uL (0.11-0.8); Neutrophils # 4.1 10*3/uL (1.4-7.4); Neutrophils % 67.5 % (38.7-73.9); Platelet Count 169 T/CUMM (130-400); Red Blood Count 3.01 MC/CUMM (3.8-5.5); Red Cell Distribution Width 14.6 % (9.3-17.3); White Blood Count 6.1 T/CUMM (4-12)
[2017-07-14 05:23] LABS: Band Neutrophils 5 % (0-10); Eosinophils 3 % (0-10); Giant Platelets Few; Hypochromasia 1+; Lymphocytes 15 % (20-55); Microcytosis Slight; Ovalocytes Slight; Platelet Estimate Normal; Segmented Neutrophils 68 % (50-85); Total Cells Counted 100
[2017-07-14 05:26] LABS: Albumin 2.2 G/DL (3.4-5.0); Bilirubin,Total 0.4 MG/DL (0.2-1.0); Calcium 7.8 MG/DL (8.5-10.1); Osmolality,Calculated 292.1 MOS/KG (273-304); Potassium 4.6 MMOL/L (3.5-5.1); Total Protein 4.9 G/DL (6.4-8.3)
[2017-07-14] MEDS ORDERED: ALBUTEROL 2.5 MG/3 ML NEB RESP TX ONE (06:12)
[2017-07-14] MEDS ORDERED: IPRATROPIUM 500 MCG/2.5 ML NEB RESP TX ONE (06:12)
[2017-07-14] MEDS ORDERED: FAMOTIDINE 20 MG TABLET PO ONE (06:12)
[2017-07-14] MEDS ORDERED: DIAZEPAM 5 MG TABLET PO ONE (06:12)
[2017-07-14] MEDS ORDERED: CEFTAROLINE 600 MG in SODIUM CHLORIDE 0.9% 100 ML IV SCH (08:30)
[2017-07-14] MEDS: traMADol 50 MG TABLET PO PRN ×2 (09:15→13:37)
[2017-07-14] MEDS: SODIUM ACETATE 50 MEQ in SODIUM CHLORIDE 0.45% 1,000 ML IV SCH ×5 (10:18→23:50)
[2017-07-14] MEDS: LEVOTHYROXINE 75 MCG TABLET PO SCH (10:19)
[2017-07-14] MEDS: DICYCLOMINE 10 MG CAPSULE PO SCH ×3 (10:19→21:12)
[2017-07-14] MEDS: POLYETHYLENE GLYCOL POWDER 255 GM BOTTLE PO SCH (10:19)
[2017-07-14] MEDS: NYSTATIN 500,000 UNIT/5 ML UDCUP SWISH/SWAL SCH ×4 (10:19→21:12)
[2017-07-14] MEDS: methylPREDNISolone SOD SUC 40 MG/1 ML VIAL IV SCH ×3 (10:19→23:58)
[2017-07-14] MEDS: PHENYLEPHRINE DRIP 40 MG/250 ML PREMIX IV SCH (10:20)
[2017-07-14] MEDS: SERTRALINE 25 MG TABLET PO SCH (10:20)
[2017-07-14] MEDS: CEFTAROLINE 400 MG in SODIUM CHLORIDE 0.9% 100 ML IV SCH ×2 (13:36→23:57)
[2017-07-14] MEDS: BACLOFEN 10 MG TABLET PO SCH (21:12)
[2017-07-15] MEDS: ALBUMIN 25% 25 GM in PREMIX 1 EACH IV SCH ×2 (02:24→15:27)
[2017-07-15] MEDS: PIPERACILLIN/TAZOBACTAM 3,375 MG in SODIUM CHLORIDE 0.9% 100 ML IV SCH ×3 (02:24→19:10)
[2017-07-15] MEDS: ALBUTEROL/IPRATROPIUM 3 ML NEB RESP TX SCH ×4 (02:34→18:08)
[2017-07-15 04:54] LABS: Allen Test Positive
[2017-07-15 04:55] LABS: ABG HCO3 23.7 MMOL/L (20-26); ABG Oxygen Saturation 95.5 % (95-100); ABG PCO2 34.3 MM HG (35-48); ABG PH 7.457 (7.35-7.45); ABG TCO2 24.7 MMOL/L (23-27)
[2017-07-15] MEDS: SODIUM ACETATE 50 MEQ in SODIUM CHLORIDE 0.45% 1,000 ML IV SCH ×3 (05:32→22:31)
[2017-07-15 06:22] LABS: Basophils % 0.4 % (0.0-0.8); Hemoglobin 8.5 GM/DL (14.0-18.0); Immature Granulocytes % 7.4 %; Immature Granulocytes Absolute 0.34 #; Lymphocytes # 0.8 10*3/uL (1.4-4.0); Lymphocytes % 16.9 % (21.2-54.2); Mean Corpuscular HGB Conc 32.7 GM/DL (32-36); Mean Corpuscular Hemoglobin 29 PG (27-34); Mean Corpuscular Volume 89.7 FL (87-102); Mean Platelet Volume 10.6 FL (9.6-12.0); Monocytes # 0.2 10*3/uL (0.11-0.8); Monocytes % 5.2 % (1.7-12.7); Neutrophils # 3.2 10*3/uL (1.4-7.4); Neutrophils % 70.1 % (38.7-73.9); Platelet Count 147 T/CUMM (130-400); Red Cell Distribution Width 14.3 % (9.3-17.3); White Blood Count 4.6 T/CUMM (4-12)
[2017-07-15] MEDS: LEVOTHYROXINE 75 MCG TABLET PO SCH (06:34)
[2017-07-15 06:50] LABS: Calcium 8.1 MG/DL (8.5-10.1); Osmolality,Calculated 294.8 MOS/KG (273-304); Potassium 4.7 MMOL/L (3.5-5.1)
[2017-07-15 07:16] LABS: Band Neutrophils 4 % (0-10); Hypochromasia 1+; Lymphocytes 16 % (20-55); Myelocytes 1 %; Segmented Neutrophils 75 % (50-85); Total Cells Counted 100
[2017-07-15 07:17] LABS: Microcytosis Slight; Platelet Estimate Adequate
[2017-07-15] MEDS: methylPREDNISolone SOD SUC 40 MG/1 ML VIAL IV SCH ×2 (08:48→16:29)
[2017-07-15] MEDS: NYSTATIN 500,000 UNIT/5 ML UDCUP SWISH/SWAL SCH ×4 (08:48→21:16)
[2017-07-15] MEDS: POLYETHYLENE GLYCOL POWDER 255 GM BOTTLE PO SCH (08:49)
[2017-07-15] MEDS: SERTRALINE 25 MG TABLET PO SCH (08:49)
[2017-07-15] MEDS: DICYCLOMINE 10 MG CAPSULE PO SCH ×3 (08:49→21:16)
[2017-07-15] MEDS: PHENYLEPHRINE DRIP 40 MG/250 ML PREMIX IV SCH (12:47)
[2017-07-15] MEDS ORDERED: SUGAMMADEX 200 MG/2 ML VIAL IV ONE (13:01)
[2017-07-15] MEDS ORDERED: PROPOFOL 200 MG/20 ML VIAL IV ONE (13:33)
[2017-07-15] MEDS ORDERED: NEOSTIGMINE 10 MG/10 ML VIAL ONE (13:34)
[2017-07-15] MEDS ORDERED: MIDAZOLAM 2 MG/2 ML VIAL ONE (13:34)
[2017-07-15] MEDS ORDERED: GLYCOPYRROLATE 0.4 MG/2 ML VIAL ONE (13:34)
[2017-07-15] MEDS ORDERED: ONDANSETRON 4 MG/2 ML VIAL ONE (13:34)
[2017-07-15] MEDS ORDERED: SEVOFLURANE 1 UNIT/15 MINUTE INH ONE (13:34)
[2017-07-15] MEDS ORDERED: ROCURONIUM 100 MG/10 ML VIAL IV ONE (13:35)
[2017-07-15] MEDS ORDERED: FLUCONAZOLE 200 MG TABLET PO SCH ×2 (14:00→18:46)
[2017-07-15] MEDS: CEFTAROLINE 400 MG in SODIUM CHLORIDE 0.9% 100 ML IV SCH (16:29)
[2017-07-15] MEDS: BACLOFEN 10 MG TABLET PO SCH (21:16)
[2017-07-15] MEDS: ALBUMIN IV SCH (21:50)
[2017-07-16] MEDS: CEFTAROLINE 400 MG in SODIUM CHLORIDE 0.9% 100 ML IV SCH ×2 (00:29→13:05)
[2017-07-16] MEDS: ZALEPLON 5 MG CAPSULE PO PRN ×2 (00:30→22:09)
[2017-07-16] MEDS: methylPREDNISolone SOD SUC 40 MG/1 ML VIAL IV SCH ×3 (00:31→13:05)
[2017-07-16] MEDS: ALBUTEROL/IPRATROPIUM 3 ML NEB RESP TX SCH ×4 (00:41→19:59)
[2017-07-16] MEDS: SODIUM ACETATE 50 MEQ in SODIUM CHLORIDE 0.45% 1,000 ML IV SCH ×3 (00:49→17:18)
[2017-07-16 03:51] LABS: ABG Base Excess 3.9 MMOL/L (-2.5-2.5); ABG HCO3 27.8 MMOL/L (20-26); ABG Oxygen Saturation 91.7 % (95-100); ABG PCO2 42.1 MM HG (35-48); ABG PH 7.438 (7.35-7.45); ABG PO2 58.2 MM HG (80-95); ABG TCO2 26.4 MMOL/L (23-27); Allen Test Positive
[2017-07-16] MEDS: ALBUMIN IV SCH (03:54)
[2017-07-16] MEDS: PIPERACILLIN/TAZOBACTAM 3,375 MG in SODIUM CHLORIDE 0.9% 100 ML IV SCH ×3 (03:55→17:20)
[2017-07-16 05:34] LABS: Basophils % 0.5 % (0.0-0.8); Hemoglobin 7.9 GM/DL (14.0-18.0); Immature Granulocytes % 8.1 %; Immature Granulocytes Absolute 0.51 #; Lymphocytes % 15.3 % (21.2-54.2); Mean Corpuscular HGB Conc 32.9 GM/DL (32-36); Mean Corpuscular Hemoglobin 29 PG (27-34); Mean Corpuscular Volume 88.9 FL (87-102); Monocytes # 0.4 10*3/uL (0.11-0.8); Monocytes % 5.7 % (1.7-12.7); Neutrophils # 4.5 10*3/uL (1.4-7.4); Neutrophils % 70.4 % (38.7-73.9); Platelet Count 148 T/CUMM (130-400); Red Cell Distribution Width 14.5 % (9.3-17.3); White Blood Count 6.3 T/CUMM (4-12)
[2017-07-16 06:03] LABS: Albumin 2.9 G/DL (3.4-5.0); Calcium 8.2 MG/DL (8.5-10.1); Calcium 8.3 MG/DL (8.5-10.1); Osmolality,Calculated 293.8 MOS/KG (273-304); Potassium 4.5 MMOL/L (3.5-5.1); Potassium 4.6 MMOL/L (3.5-5.1)
[2017-07-16 06:19] LABS: Band Neutrophils 1 % (0-10); Lymphocytes 10 % (20-55); Myelocytes 1 %; Platelet Estimate Adequate; Promyelocytes 1 %; Segmented Neutrophils 83 % (50-85); Total Cells Counted 100
[2017-07-16 06:20] LABS: Hypochromasia 1+; Microcytosis 1+
[2017-07-16] MEDS: LEVOTHYROXINE 75 MCG TABLET PO SCH (07:04)
[2017-07-16] MEDS: POLYETHYLENE GLYCOL POWDER 255 GM BOTTLE PO SCH (09:43)
[2017-07-16] MEDS: NYSTATIN 500,000 UNIT/5 ML UDCUP SWISH/SWAL SCH ×4 (09:44→22:08)
[2017-07-16] MEDS: SERTRALINE 25 MG TABLET PO SCH (09:44)
[2017-07-16] MEDS: DICYCLOMINE 10 MG CAPSULE PO SCH ×3 (09:44→22:08)
[2017-07-16] MEDS: PHENYLEPHRINE DRIP 40 MG/250 ML PREMIX IV SCH (12:56)
[2017-07-16] MEDS: MICAFUNGIN 100 MG in SODIUM CHLORIDE 0.9% 100 ML IV SCH (13:05)
[2017-07-16] MEDS: BACLOFEN 10 MG TABLET PO SCH (22:08)
[2017-07-17] MEDS: SODIUM ACETATE 50 MEQ in SODIUM CHLORIDE 0.45% 1,000 ML IV SCH ×3 (00:33→06:13)
[2017-07-17] MEDS: ALBUTEROL/IPRATROPIUM 3 ML NEB RESP TX SCH ×4 (01:05→20:18)
[2017-07-17] MEDS: PIPERACILLIN/TAZOBACTAM 3,375 MG in SODIUM CHLORIDE 0.9% 100 ML IV SCH ×3 (01:30→17:04)
[2017-07-17] MEDS: CEFTAROLINE 400 MG in SODIUM CHLORIDE 0.9% 100 ML IV SCH ×2 (01:30→12:45)
[2017-07-17] MEDS: methylPREDNISolone SOD SUC 40 MG/1 ML VIAL IV SCH (01:45)
[2017-07-17 05:30] LABS: Basophils % 0.4 % (0.0-0.8); Hematocrit 26.1 VOL% (42.0-52.0); Hemoglobin 8.6 GM/DL (14.0-18.0); Immature Granulocytes % 9.7 %; Immature Granulocytes Absolute 0.83 #; Lymphocytes # 1.1 10*3/uL (1.4-4.0); Lymphocytes % 12.5 % (21.2-54.2); Mean Corpuscular Hemoglobin 30 PG (27-34); Mean Corpuscular Volume 90.6 FL (87-102); Mean Platelet Volume 10.4 FL (9.6-12.0); Monocytes # 0.7 10*3/uL (0.11-0.8); Monocytes % 7.9 % (1.7-12.7); NRBC # 0.05 10*3/uL; Neutrophils % 69.5 % (38.7-73.9); Platelet Count 181 T/CUMM (130-400); Red Blood Count 2.88 MC/CUMM (3.8-5.5); Red Cell Distribution Width 14.4 % (9.3-17.3); White Blood Count 8.6 T/CUMM (4-12)
[2017-07-17 05:46] LABS: Albumin 2.6 G/DL (3.4-5.0); Calcium 8.5 MG/DL (8.5-10.1); Osmolality,Calculated 290.8 MOS/KG (273-304); Potassium 3.8 MMOL/L (3.5-5.1)
[2017-07-17 05:52] LABS: Band Neutrophils 3 % (0-10); Hypochromasia 1+; Lymphocytes 17 % (20-55); Metamyelocytes 2 %; Microcytosis 1+; Nucleated Red Blood Cells 1 (0-5); Platelet Estimate Adequate; Promyelocytes 2 %; Segmented Neutrophils 72 % (50-85); Total Cells Counted 100
[2017-07-17] MEDS: LEVOTHYROXINE 75 MCG TABLET PO SCH (06:12)
[2017-07-17] MEDS: GABAPENTIN 300 MG CAPSULE PO SCH (09:26)
[2017-07-17] MEDS: MULTIVITAMIN (CENTRUM) TABLET PO SCH (09:26)
[2017-07-17] MEDS: SERTRALINE 25 MG TABLET PO SCH (09:26)
[2017-07-17] MEDS: DICYCLOMINE 10 MG CAPSULE PO SCH ×3 (09:27→21:00)
[2017-07-17] MEDS: POLYETHYLENE GLYCOL POWDER 255 GM BOTTLE PO SCH (09:27)
[2017-07-17] MEDS: NYSTATIN 500,000 UNIT/5 ML UDCUP SWISH/SWAL SCH ×4 (09:27→21:00)
[2017-07-17] MEDS: MICAFUNGIN 100 MG in SODIUM CHLORIDE 0.9% 100 ML IV SCH (09:30)
[2017-07-17] MEDS: ONDANSETRON 4 MG/2 ML VIAL IV PRN (10:22)
[2017-07-17] MEDS: PHENYLEPHRINE DRIP 40 MG/250 ML PREMIX IV SCH (10:39)
[2017-07-17] MEDS: ZINC OXIDE PASTE 113 GM TUBE TOP PRN (12:45)
[2017-07-17] MEDS: TERAZOSIN 5 MG CAPSULE PO SCH (21:00)
[2017-07-17] MEDS: SIMVASTATIN 40 MG TABLET PO SCH (21:00)
[2017-07-17] MEDS: BACLOFEN 10 MG TABLET PO SCH (21:00)
[2017-07-18] MEDS: ALBUTEROL/IPRATROPIUM 3 ML NEB RESP TX SCH ×4 (00:49→20:08)
[2017-07-18] MEDS: CEFTAROLINE 400 MG in SODIUM CHLORIDE 0.9% 100 ML IV SCH ×2 (01:23→12:28)
[2017-07-18] MEDS: PIPERACILLIN/TAZOBACTAM 3,375 MG in SODIUM CHLORIDE 0.9% 100 ML IV SCH ×3 (02:32→17:37)
[2017-07-18 05:10] LABS: Basophils # 0.1 10*3/uL (0.0-0.2); Basophils % 0.4 % (0.0-0.8); Eosinophils # 0.3 10*3/uL (0.0-0.87); Eosinophils % 2.8 % (0.00-10.9); Hematocrit 30.2 VOL% (42.0-52.0); Hemoglobin 9.7 GM/DL (14.0-18.0); Immature Granulocytes % 5.3 %; Immature Granulocytes Absolute 0.65 #; Lymphocytes # 1.5 10*3/uL (1.4-4.0); Lymphocytes % 12.7 % (21.2-54.2); Mean Corpuscular HGB Conc 32.1 GM/DL (32-36); Mean Corpuscular Hemoglobin 29 PG (27-34); Mean Corpuscular Volume 91.2 FL (87-102); Mean Platelet Volume 10.5 FL (9.6-12.0); Monocytes # 0.8 10*3/uL (0.11-0.8); Monocytes % 6.8 % (1.7-12.7); NRBC # 0.02 10*3/uL; Neutrophils # 8.8 10*3/uL (1.4-7.4); Platelet Count 202 T/CUMM (130-400); Red Blood Count 3.31 MC/CUMM (3.8-5.5); Red Cell Distribution Width 14.8 % (9.3-17.3); White Blood Count 12.2 T/CUMM (4-12)
[2017-07-18 05:48] LABS: Albumin 2.2 G/DL (3.4-5.0); Albumin 2.3 G/DL (3.4-5.0); Bilirubin,Total 0.5 MG/DL (0.2-1.0); Calcium 8.2 MG/DL (8.5-10.1); Eosinophils 2 % (0-10); Free T4 (Free Thyroxine) 0.92 NG/DL (0.76-1.46); Lymphocytes 9 % (20-55); Magnesium 1.9 MG/DL (1.8-2.4); Osmolality,Calculated 287.8 MOS/KG (273-304); Osmolality,Calculated 288.8 MOS/KG (273-304); Potassium 3.5 MMOL/L (3.5-5.1); Thyroid Stimulating Hormone 3.87 uIU/ml (0.358-3.74); Total Protein 5.2 G/DL (6.4-8.3)
[2017-07-18 05:50] LABS: Band Neutrophils 2 % (0-10); Metamyelocytes 1 %; Myelocytes 1 %; Platelet Estimate Normal; Polychromasia Slight; Segmented Neutrophils 84 % (50-85); Total Cells Counted 100
[2017-07-18] MEDS: LEVOTHYROXINE 75 MCG TABLET PO SCH (06:08)
[2017-07-18] MEDS: DICYCLOMINE 10 MG CAPSULE PO SCH ×3 (08:41→21:30)
[2017-07-18] MEDS: predniSONE 10 MG TABLET PO SCH (08:42)
[2017-07-18] MEDS: GABAPENTIN 300 MG CAPSULE PO SCH (08:42)
[2017-07-18] MEDS: SERTRALINE 25 MG TABLET PO SCH (08:42)
[2017-07-18] MEDS: MULTIVITAMIN (CENTRUM) TABLET PO SCH (08:42)
[2017-07-18] MEDS: NYSTATIN 500,000 UNIT/5 ML UDCUP SWISH/SWAL SCH ×4 (08:43→21:30)
[2017-07-18] MEDS: POLYETHYLENE GLYCOL POWDER 255 GM BOTTLE PO SCH (09:52)
[2017-07-18] MEDS: MICAFUNGIN 100 MG in SODIUM CHLORIDE 0.9% 100 ML IV SCH (10:23)
[2017-07-18] MEDS: PHENYLEPHRINE DRIP 40 MG/250 ML PREMIX IV SCH (12:27)
[2017-07-18] MEDS: TERAZOSIN 5 MG CAPSULE PO SCH (21:30)
[2017-07-18] MEDS: SIMVASTATIN 40 MG TABLET PO SCH (21:30)
[2017-07-18] MEDS: BACLOFEN 10 MG TABLET PO SCH (21:30)
[2017-07-19] MEDS: CEFTAROLINE 400 MG in SODIUM CHLORIDE 0.9% 100 ML IV SCH ×3 (00:15→23:59)
[2017-07-19] MEDS: ALBUTEROL/IPRATROPIUM 3 ML NEB RESP TX SCH ×5 (00:24→23:30)
[2017-07-19] MEDS: PIPERACILLIN/TAZOBACTAM 3,375 MG in SODIUM CHLORIDE 0.9% 100 ML IV SCH ×3 (02:04→17:29)
[2017-07-19] MEDS: LEVOTHYROXINE 75 MCG TABLET PO SCH (06:13)
[2017-07-19] MEDS: MICAFUNGIN 100 MG in SODIUM CHLORIDE 0.9% 100 ML IV SCH (09:32)
[2017-07-19] MEDS: POLYETHYLENE GLYCOL POWDER 255 GM BOTTLE PO SCH (09:48)
[2017-07-19] MEDS: DICYCLOMINE 10 MG CAPSULE PO SCH ×3 (09:49→21:03)
[2017-07-19] MEDS: predniSONE 10 MG TABLET PO SCH (09:49)
[2017-07-19] MEDS: MULTIVITAMIN (CENTRUM) TABLET PO SCH (09:49)
[2017-07-19] MEDS: NYSTATIN 500,000 UNIT/5 ML UDCUP SWISH/SWAL SCH ×4 (09:49→21:03)
[2017-07-19] MEDS: GABAPENTIN 300 MG CAPSULE PO SCH (09:49)
[2017-07-19] MEDS: SERTRALINE 25 MG TABLET PO SCH (09:58)
[2017-07-19] MEDS ORDERED: FUROSEMIDE 40 MG/4 ML VIAL IV ONE (11:00)
[2017-07-19] MEDS: PHENYLEPHRINE DRIP 40 MG/250 ML PREMIX IV SCH (13:16)
[2017-07-19] MEDS: PANTOPRAZOLE 20 MG TABLET PO SCH (14:37)
[2017-07-19] MEDS: BACLOFEN 10 MG TABLET PO SCH (21:03)
[2017-07-19] MEDS: SIMVASTATIN 40 MG TABLET PO SCH (21:03)
[2017-07-19] MEDS: TERAZOSIN 5 MG CAPSULE PO SCH (21:03)
[2017-07-20] MEDS: PIPERACILLIN/TAZOBACTAM 3,375 MG in SODIUM CHLORIDE 0.9% 100 ML IV SCH ×3 (01:34→18:21)
[2017-07-20 05:30] LABS: Basophils % 0.2 % (0.0-0.8); Eosinophils # 0.5 10*3/uL (0.0-0.87); Eosinophils % 4.5 % (0.00-10.9); Hematocrit 28.6 VOL% (42.0-52.0); Hemoglobin 9.4 GM/DL (14.0-18.0); Immature Granulocytes % 1.9 %; Immature Granulocytes Absolute 0.19 #; Lymphocytes # 1.8 10*3/uL (1.4-4.0); Lymphocytes % 18.3 % (21.2-54.2); Mean Corpuscular HGB Conc 32.9 GM/DL (32-36); Mean Corpuscular Hemoglobin 29 PG (27-34); Mean Corpuscular Volume 88.5 FL (87-102); Monocytes # 0.7 10*3/uL (0.11-0.8); Monocytes % 6.5 % (1.7-12.7); Neutrophils # 6.9 10*3/uL (1.4-7.4); Neutrophils % 68.6 % (38.7-73.9); Platelet Count 252 T/CUMM (130-400); Red Blood Count 3.23 MC/CUMM (3.8-5.5); Red Cell Distribution Width 14.7 % (9.3-17.3)
[2017-07-20 05:46] LABS: Calcium 7.7 MG/DL (8.5-10.1); Magnesium 1.7 MG/DL (1.8-2.4); Osmolality,Calculated 290.6 MOS/KG (273-304); Potassium 3.1 MMOL/L (3.5-5.1)
[2017-07-20] MEDS: LEVOTHYROXINE 75 MCG TABLET PO SCH (06:13)
[2017-07-20] MEDS: ALBUTEROL/IPRATROPIUM 3 ML NEB RESP TX SCH ×3 (08:00→19:46)
[2017-07-20] MEDS ORDERED: MAGNESIUM SULF RIDER 2 GM in PREMIX 1 EACH IV ONE (08:33)
[2017-07-20] MEDS: ONDANSETRON 4 MG/2 ML VIAL IV PRN (09:55)
[2017-07-20] MEDS: POTASSIUM CHLORIDE 20 MEQ TABLET PO PRN ×3 (09:56→14:43)
[2017-07-20] MEDS: NYSTATIN 500,000 UNIT/5 ML UDCUP SWISH/SWAL SCH ×4 (09:56→21:44)
[2017-07-20] MEDS: DICYCLOMINE 10 MG CAPSULE PO SCH ×3 (09:56→21:42)
[2017-07-20] MEDS: SERTRALINE 25 MG TABLET PO SCH (09:57)
[2017-07-20] MEDS: GABAPENTIN 300 MG CAPSULE PO SCH (09:57)
[2017-07-20] MEDS: PANTOPRAZOLE 20 MG TABLET PO SCH (09:57)
[2017-07-20] MEDS: predniSONE 10 MG TABLET PO SCH (09:57)
[2017-07-20] MEDS: MULTIVITAMIN (OCUVITE) TABLET PO SCH (10:21)
[2017-07-20] MEDS: MULTIVITAMIN (CENTRUM) TABLET PO SCH (10:21)
[2017-07-20] MEDS: POLYETHYLENE GLYCOL POWDER 255 GM BOTTLE PO SCH (10:22)
[2017-07-20] MEDS: MICAFUNGIN 100 MG in SODIUM CHLORIDE 0.9% 100 ML IV SCH (10:31)
[2017-07-20] MEDS: CEFTAROLINE 400 MG in SODIUM CHLORIDE 0.9% 100 ML IV SCH (12:33)
[2017-07-20] MEDS: PHENYLEPHRINE DRIP 40 MG/250 ML PREMIX IV SCH (13:46)
[2017-07-20] MEDS: BACLOFEN 10 MG TABLET PO SCH (21:42)
[2017-07-20] MEDS: TERAZOSIN 5 MG CAPSULE PO SCH (21:43)
[2017-07-20] MEDS: SIMVASTATIN 40 MG TABLET PO SCH (21:43)
[2017-07-21] MEDS: CEFTAROLINE 400 MG in SODIUM CHLORIDE 0.9% 100 ML IV SCH ×2 (00:10→15:21)
[2017-07-21] MEDS: ALBUTEROL/IPRATROPIUM 3 ML NEB RESP TX SCH ×4 (01:59→20:35)
[2017-07-21] MEDS: PIPERACILLIN/TAZOBACTAM 3,375 MG in SODIUM CHLORIDE 0.9% 100 ML IV SCH ×3 (02:25→17:52)
[2017-07-21 04:23] LABS: Basophils % 0.2 % (0.0-0.8); Eosinophils # 0.5 10*3/uL (0.0-0.87); Eosinophils % 5.7 % (0.00-10.9); Hematocrit 27.3 VOL% (42.0-52.0); Immature Granulocytes % 1.6 %; Immature Granulocytes Absolute 0.14 #; Lymphocytes # 1.9 10*3/uL (1.4-4.0); Mean Corpuscular Hemoglobin 30 PG (27-34); Mean Corpuscular Volume 89.5 FL (87-102); Mean Platelet Volume 10.3 FL (9.6-12.0); Monocytes # 0.8 10*3/uL (0.11-0.8); Monocytes % 8.8 % (1.7-12.7); Neutrophils # 5.6 10*3/uL (1.4-7.4); Neutrophils % 62.7 % (38.7-73.9); Platelet Count 285 T/CUMM (130-400); Red Blood Count 3.05 MC/CUMM (3.8-5.5); Red Cell Distribution Width 14.9 % (9.3-17.3); White Blood Count 8.9 T/CUMM (4-12)
[2017-07-21 04:52] LABS: Calcium 7.7 MG/DL (8.5-10.1); Magnesium 2.2 MG/DL (1.8-2.4); Osmolality,Calculated 288.7 MOS/KG (273-304); Potassium 3.7 MMOL/L (3.5-5.1)
[2017-07-21] MEDS: LEVOTHYROXINE 75 MCG TABLET PO SCH (06:04)
[2017-07-21] MEDS: NYSTATIN 500,000 UNIT/5 ML UDCUP SWISH/SWAL SCH ×4 (09:48→21:10)
[2017-07-21] MEDS: DICYCLOMINE 10 MG CAPSULE PO SCH ×3 (09:48→21:04)
[2017-07-21] MEDS: MULTIVITAMIN (CENTRUM) TABLET PO SCH (09:48)
[2017-07-21] MEDS: GABAPENTIN 300 MG CAPSULE PO SCH (09:49)
[2017-07-21] MEDS: MULTIVITAMIN (OCUVITE) TABLET PO SCH (09:49)
[2017-07-21] MEDS: predniSONE 10 MG TABLET PO SCH (09:49)
[2017-07-21] MEDS: SERTRALINE 25 MG TABLET PO SCH (09:49)
[2017-07-21] MEDS: PANTOPRAZOLE 20 MG TABLET PO SCH (09:49)
[2017-07-21] MEDS: MICAFUNGIN 100 MG in SODIUM CHLORIDE 0.9% 100 ML IV SCH (09:49)
[2017-07-21] MEDS: ZINC OXIDE PASTE 113 GM TUBE TOP PRN (10:11)
[2017-07-21] MEDS: POLYETHYLENE GLYCOL POWDER 255 GM BOTTLE PO SCH (11:37)
[2017-07-21] MEDS: BACLOFEN 10 MG TABLET PO SCH (21:03)
[2017-07-21] MEDS: TERAZOSIN 5 MG CAPSULE PO SCH (21:04)
[2017-07-21] MEDS: SIMVASTATIN 40 MG TABLET PO SCH (21:05)
[2017-07-22] MEDS: CEFTAROLINE 400 MG in SODIUM CHLORIDE 0.9% 100 ML IV SCH ×2 (00:35→11:52)
[2017-07-22] MEDS: ALBUTEROL/IPRATROPIUM 3 ML NEB RESP TX SCH ×4 (01:28→20:27)
[2017-07-22] MEDS: PIPERACILLIN/TAZOBACTAM 3,375 MG in SODIUM CHLORIDE 0.9% 100 ML IV SCH ×3 (01:40→18:06)
[2017-07-22 05:38] LABS: Basophils % 0.3 % (0.0-0.8); Eosinophils # 0.5 10*3/uL (0.0-0.87); Hematocrit 26.9 VOL% (42.0-52.0); Hemoglobin 8.5 GM/DL (14.0-18.0); Immature Granulocytes % 1.2 %; Immature Granulocytes Absolute 0.11 #; Lymphocytes # 1.6 10*3/uL (1.4-4.0); Lymphocytes % 18.4 % (21.2-54.2); Mean Corpuscular HGB Conc 31.6 GM/DL (32-36); Mean Corpuscular Hemoglobin 29 PG (27-34); Mean Corpuscular Volume 91.2 FL (87-102); Monocytes # 0.9 10*3/uL (0.11-0.8); Monocytes % 9.6 % (1.7-12.7); Neutrophils # 5.7 10*3/uL (1.4-7.4); Neutrophils % 64.5 % (38.7-73.9); Platelet Count 293 T/CUMM (130-400); Red Blood Count 2.95 MC/CUMM (3.8-5.5); Red Cell Distribution Width 14.8 % (9.3-17.3); White Blood Count 8.9 T/CUMM (4-12)
[2017-07-22 06:01] LABS: Hypochromasia 1+; Ovalocytes Slight; Platelet Estimate Adequate
[2017-07-22 06:02] LABS: Giant Platelets Few
[2017-07-22 06:03] LABS: Calcium 7.5 MG/DL (8.5-10.1); Osmolality,Calculated 290.6 MOS/KG (273-304); Potassium 3.9 MMOL/L (3.5-5.1)
[2017-07-22] MEDS: LEVOTHYROXINE 75 MCG TABLET PO SCH (06:25)
[2017-07-22] MEDS: MULTIVITAMIN (CENTRUM) TABLET PO SCH (09:18)
[2017-07-22] MEDS: PANTOPRAZOLE 20 MG TABLET PO SCH (09:18)
[2017-07-22] MEDS: MULTIVITAMIN (OCUVITE) TABLET PO SCH (09:18)
[2017-07-22] MEDS: SERTRALINE 25 MG TABLET PO SCH (09:18)
[2017-07-22] MEDS: GABAPENTIN 300 MG CAPSULE PO SCH (09:19)
[2017-07-22] MEDS: NYSTATIN 500,000 UNIT/5 ML UDCUP SWISH/SWAL SCH ×4 (09:19→21:16)
[2017-07-22] MEDS: predniSONE 10 MG TABLET PO SCH (09:19)
[2017-07-22] MEDS: POLYETHYLENE GLYCOL POWDER 255 GM BOTTLE PO SCH (10:08)
[2017-07-22] MEDS: DICYCLOMINE 10 MG CAPSULE PO SCH ×3 (10:13→21:17)
[2017-07-22] MEDS: MICAFUNGIN 100 MG in SODIUM CHLORIDE 0.9% 100 ML IV SCH (10:15)
[2017-07-22] MEDS: SIMVASTATIN 40 MG TABLET PO SCH (21:17)
[2017-07-22] MEDS: TERAZOSIN 5 MG CAPSULE PO SCH (21:17)
[2017-07-22] MEDS: BACLOFEN 10 MG TABLET PO SCH (21:17)
[2017-07-23] MEDS: CEFTAROLINE 400 MG in SODIUM CHLORIDE 0.9% 100 ML IV SCH ×2 (01:09→11:31)
[2017-07-23] MEDS: PIPERACILLIN/TAZOBACTAM 3,375 MG in SODIUM CHLORIDE 0.9% 100 ML IV SCH ×3 (01:37→17:45)
[2017-07-23] MEDS: ALBUTEROL/IPRATROPIUM 3 ML NEB RESP TX SCH ×4 (02:06→22:15)
[2017-07-23] MEDS: LEVOTHYROXINE 75 MCG TABLET PO SCH (06:10)
[2017-07-23] MEDS: MULTIVITAMIN (CENTRUM) TABLET PO SCH (08:39)
[2017-07-23] MEDS: NYSTATIN 500,000 UNIT/5 ML UDCUP SWISH/SWAL SCH ×4 (08:39→20:40)
[2017-07-23] MEDS: GABAPENTIN 300 MG CAPSULE PO SCH (08:39)
[2017-07-23] MEDS: MULTIVITAMIN (OCUVITE) TABLET PO SCH (08:39)
[2017-07-23] MEDS: SERTRALINE 25 MG TABLET PO SCH (08:39)
[2017-07-23] MEDS: DICYCLOMINE 10 MG CAPSULE PO SCH ×3 (08:39→20:40)
[2017-07-23] MEDS: predniSONE 10 MG TABLET PO SCH (08:39)
[2017-07-23] MEDS: PANTOPRAZOLE 20 MG TABLET PO SCH (08:39)
[2017-07-23] MEDS: POLYETHYLENE GLYCOL POWDER 255 GM BOTTLE PO SCH (08:41)
[2017-07-23] MEDS: MICAFUNGIN 100 MG in SODIUM CHLORIDE 0.9% 100 ML IV SCH (10:00)
[2017-07-23 16:35] LABS: INR 1.1; PT Patient Result 11.2 SECS; Partial Thromboplastin Time 24.9 SECS (0-40)
[2017-07-23] MEDS: TERAZOSIN 5 MG CAPSULE PO SCH (20:40)
[2017-07-23] MEDS: BACLOFEN 10 MG TABLET PO SCH (20:40)
[2017-07-23] MEDS: SIMVASTATIN 40 MG TABLET PO SCH (20:40)
[2017-07-24] MEDS: CEFTAROLINE 400 MG in SODIUM CHLORIDE 0.9% 100 ML IV SCH (00:53)
[2017-07-24] MEDS: ALBUTEROL/IPRATROPIUM 3 ML NEB RESP TX SCH ×4 (01:07→19:12)
[2017-07-24] MEDS: PIPERACILLIN/TAZOBACTAM 3,375 MG in SODIUM CHLORIDE 0.9% 100 ML IV SCH ×3 (02:04→18:20)
[2017-07-24 05:24] LABS: Basophils # 0.1 10*3/uL (0.0-0.2); Basophils % 0.6 % (0.0-0.8); Eosinophils # 0.3 10*3/uL (0.0-0.87); Eosinophils % 4.4 % (0.00-10.9); Hematocrit 26.4 VOL% (42.0-52.0); Hemoglobin 8.5 GM/DL (14.0-18.0); Immature Granulocytes Absolute 0.08 #; Lymphocytes # 1.8 10*3/uL (1.4-4.0); Lymphocytes % 22.5 % (21.2-54.2); Mean Corpuscular HGB Conc 32.2 GM/DL (32-36); Mean Corpuscular Hemoglobin 29 PG (27-34); Mean Corpuscular Volume 89.2 FL (87-102); Mean Platelet Volume 9.6 FL (9.6-12.0); Monocytes % 12.7 % (1.7-12.7); Neutrophils # 4.6 10*3/uL (1.4-7.4); Neutrophils % 58.8 % (38.7-73.9); Platelet Count 348 T/CUMM (130-400); Red Blood Count 2.96 MC/CUMM (3.8-5.5); Red Cell Distribution Width 14.8 % (9.3-17.3); White Blood Count 7.8 T/CUMM (4-12)
[2017-07-24 05:58] LABS: Albumin 1.9 G/DL (3.4-5.0); Bilirubin,Total 0.6 MG/DL (0.2-1.0); Calcium 7.9 MG/DL (8.5-10.1); Osmolality,Calculated 286.7 MOS/KG (273-304); Potassium 3.3 MMOL/L (3.5-5.1); Total Protein 5.2 G/DL (6.4-8.3)
[2017-07-24] MEDS: LEVOTHYROXINE 75 MCG TABLET PO SCH (05:59)
[2017-07-24] MEDS ORDERED: TISSUE ADHESIVE 1 EACH APPLICATOR TOP ONE (06:24)
[2017-07-24] MEDS ORDERED: TALC INTRAPLEURAL POWDER 5 GM BOTTLE INTRAPLEUR ONE (06:24)
[2017-07-24 06:29] LABS: Hypochromasia 1+
[2017-07-24] MEDS ORDERED: LACTATED RINGERS 1,000 ML IV ONE (06:34)
[2017-07-24] MEDS ORDERED: HEPARIN/NACL 0.9% 2 UNITS/ML 1,000 ML IV ONE (06:34)
[2017-07-24] MEDS ORDERED: PHENYLEPHRINE DRIP 20 MG/250 ML PREMIX IV ONE (06:34)
[2017-07-24] MEDS ORDERED: NITROGLYCERIN DRIP 50 MG/250 ML BOTTLE IV ONE (06:34)
[2017-07-24] MEDS ORDERED: ROPIVACAINE 0.5% 30 ML VIAL ONE (08:09)
[2017-07-24] MEDS: LACTATED RINGERS 1,000 ML IV SCH ×4 (10:20→18:08)
[2017-07-24] MEDS ORDERED: VANCOMYCIN 1,000 MG VIAL ONE ×2 (10:36→12:14)
[2017-07-24] MEDS ORDERED: SODIUM CHLORIDE 0.9% 1,000 ML IV PRN (11:51)
[2017-07-24 12:34] LABS: ABG Base Excess 0.4 MMOL/L (-2.5-2.5); ABG HCO3 24.8 MMOL/L (20-26); ABG PCO2 43.8 MM HG (35-48); ABG PH 7.377 (7.35-7.45); ABG TCO2 23.5 MMOL/L (23-27); Glucose Heart Surgery 146 MG/DL (74-106); Hematocrit Heart Surgery 30.5 PERCENT (42-52); Hemoglobin Heart Surgery 9.9 G/DL (14.0-18.0); Ionized Calcium Arterial 1.42 MMOL/L (1.21-1.46); PCO2 Patient Temp Arterial 43.8 MMHG; PH Patient Temp Arterial 7.377; Patient Temperature 37 CELCIUS; Potassium Heart/CVR 3.6 MMOL/L (3.5-5.1); Sodium Heart/CVR 141 MMOL/L (135-145)
[2017-07-24] MEDS ORDERED: diphenhydrAMINE CAP 25 MG CAPSULE PO PRN (13:47)
[2017-07-24] MEDS ORDERED: KETOROLAC 60 MG/2 ML VIAL IM ONE (13:47)
[2017-07-24] MEDS ORDERED: diphenhydrAMINE 50 MG/1 ML VIAL IV PRN (13:47)
[2017-07-24] MEDS ORDERED: ONDANSETRON 4 MG/2 ML VIAL IV PRN (13:47)
[2017-07-24 13:55] LABS: Basophils # 0.1 10*3/uL (0.0-0.2); Basophils % 0.5 % (0.0-0.8); Eosinophils # 0.2 10*3/uL (0.0-0.87); Eosinophils % 1.6 % (0.00-10.9); Hematocrit 31.8 VOL% (42.0-52.0); Hemoglobin 10.7 GM/DL (14.0-18.0); Immature Granulocytes % 1.6 %; Immature Granulocytes Absolute 0.18 #; Lymphocytes # 0.8 10*3/uL (1.4-4.0); Lymphocytes % 7.2 % (21.2-54.2); Mean Corpuscular HGB Conc 33.6 GM/DL (32-36); Mean Corpuscular Hemoglobin 30 PG (27-34); Mean Corpuscular Volume 88.8 FL (87-102); Mean Platelet Volume 9.5 FL (9.6-12.0); Monocytes # 0.6 10*3/uL (0.11-0.8); Monocytes % 5.3 % (1.7-12.7); Neutrophils # 9.6 10*3/uL (1.4-7.4); Neutrophils % 83.8 % (38.7-73.9); Platelet Count 352 T/CUMM (130-400); Red Blood Count 3.58 MC/CUMM (3.8-5.5); Red Cell Distribution Width 14.7 % (9.3-17.3); White Blood Count 11.4 T/CUMM (4-12)
[2017-07-24] MEDS ORDERED: SODIUM CHLORIDE 0.9% EPIDURAL SCH (14:00)
[2017-07-24] MEDS ORDERED: LACTATED RINGERS 1,000 ML IV SCH (14:00)
[2017-07-24] MEDS ORDERED: fentaNYL 2 MCG/ROPIV 0.2% EPID 150 ML EPIDURAL SCH (14:00)
[2017-07-24] MEDS ORDERED: MORPHINE EPIDURAL SCH (14:00)
[2017-07-24] MEDS ORDERED: DESFLURANE 1 UNIT/15 MINUTE INH ONE (14:16)
[2017-07-24] MEDS ORDERED: PROPOFOL 200 MG/20 ML VIAL IV ONE (14:16)
[2017-07-24] MEDS ORDERED: SEVOFLURANE 1 UNIT/15 MINUTE INH ONE (14:16)
[2017-07-24] MEDS ORDERED: fentaNYL 100 MCG/2 ML VIAL ONE (14:16)
[2017-07-24] MEDS ORDERED: ROCURONIUM 100 MG/10 ML VIAL IV ONE (14:17)
[2017-07-24] MEDS ORDERED: GLYCOPYRROLATE 0.4 MG/2 ML VIAL ONE (14:17)
[2017-07-24] MEDS ORDERED: NEOSTIGMINE 10 MG/10 ML VIAL ONE (14:17)
[2017-07-24] MEDS ORDERED: MIDAZOLAM 2 MG/2 ML VIAL ONE (14:17)
[2017-07-24] MEDS ORDERED: ePHEDrine 50 MG/ML AMP ONE (14:17)
[2017-07-24] MEDS ORDERED: ONDANSETRON 4 MG/2 ML VIAL ONE (14:17)
[2017-07-24] MEDS ORDERED: DEXAMETHASONE 10 MG/1 ML VIAL ONE (14:17)
[2017-07-24 14:19] LABS: Calcium 7.6 MG/DL (8.5-10.1); Osmolality,Calculated 288.8 MOS/KG (273-304); Potassium 3.7 MMOL/L (3.5-5.1)
[2017-07-24] MEDS ORDERED: PHENYLEPHRINE DRIP 40 MG/250 ML PREMIX IV SCH (14:30)
[2017-07-24] MEDS: MULTIVITAMIN (CENTRUM) TABLET PO SCH (15:33)
[2017-07-24] MEDS: DICYCLOMINE 10 MG CAPSULE PO SCH ×2 (15:33→21:17)
[2017-07-24] MEDS: POLYETHYLENE GLYCOL POWDER 255 GM BOTTLE PO SCH (15:33)
[2017-07-24] MEDS: NYSTATIN 500,000 UNIT/5 ML UDCUP SWISH/SWAL SCH ×3 (15:34→21:18)
[2017-07-24] MEDS: MULTIVITAMIN (OCUVITE) TABLET PO SCH (15:34)
[2017-07-24] MEDS: predniSONE 10 MG TABLET PO SCH (15:34)
[2017-07-24] MEDS: PANTOPRAZOLE 20 MG TABLET PO SCH (15:34)
[2017-07-24] MEDS: GABAPENTIN 300 MG CAPSULE PO SCH (15:34)
[2017-07-24] MEDS: SERTRALINE 25 MG TABLET PO SCH (15:34)
[2017-07-24] MEDS: MICAFUNGIN 100 MG in SODIUM CHLORIDE 0.9% 100 ML IV SCH ×2 (15:35→21:35)
[2017-07-24] MEDS: CEFTAROLINE 600 MG in SODIUM CHLORIDE 0.9% 100 ML IV SCH ×2 (17:11→21:35)
[2017-07-24] MEDS: fentaNYL 2 MCG/ROPIV 0.2% EPID 100 ML EPIDURAL SCH (17:28)
[2017-07-24] MEDS ORDERED: KETOROLAC 30 MG/1 ML VIAL IM PRN (19:47)
[2017-07-24] MEDS: TERAZOSIN 5 MG CAPSULE PO SCH (21:17)
[2017-07-24] MEDS: BACLOFEN 10 MG TABLET PO SCH (21:18)
[2017-07-24] MEDS: SIMVASTATIN 40 MG TABLET PO SCH (21:18)
[2017-07-25] MEDS: ALBUTEROL/IPRATROPIUM 3 ML NEB RESP TX SCH ×4 (00:37→19:59)
[2017-07-25] MEDS: PIPERACILLIN/TAZOBACTAM 3,375 MG in SODIUM CHLORIDE 0.9% 100 ML IV SCH ×3 (03:00→19:15)
[2017-07-25] MEDS: LACTATED RINGERS 1,000 ML IV SCH ×3 (03:15→21:54)
[2017-07-25] MEDS: fentaNYL 2 MCG/ROPIV 0.2% EPID 100 ML EPIDURAL SCH ×3 (04:15→21:54)
[2017-07-25 04:56] LABS: Basophils % 0.2 % (0.0-0.8); Eosinophils % 0.2 % (0.00-10.9); Hematocrit 26.5 VOL% (42.0-52.0); Hemoglobin 8.6 GM/DL (14.0-18.0); Lymphocytes # 1.6 10*3/uL (1.4-4.0); Lymphocytes % 16.2 % (21.2-54.2); Mean Corpuscular HGB Conc 32.5 GM/DL (32-36); Mean Corpuscular Hemoglobin 30 PG (27-34); Mean Corpuscular Volume 91.1 FL (87-102); Mean Platelet Volume 9.8 FL (9.6-12.0); Monocytes # 1.2 10*3/uL (0.11-0.8); Monocytes % 11.9 % (1.7-12.7); Neutrophils % 70.5 % (38.7-73.9); Platelet Count 296 T/CUMM (130-400); Red Blood Count 2.91 MC/CUMM (3.8-5.5); Red Cell Distribution Width 14.9 % (9.3-17.3); White Blood Count 9.9 T/CUMM (4-12)
[2017-07-25 05:13] LABS: Calcium 7.2 MG/DL (8.5-10.1); Magnesium 1.7 MG/DL (1.8-2.4); Osmolality,Calculated 290.8 MOS/KG (273-304); Potassium 3.6 MMOL/L (3.5-5.1)
[2017-07-25 06:08] LABS: Band Neutrophils 2 % (0-10); Lymphocytes 16 % (20-55); Segmented Neutrophils 69 % (50-85); Total Cells Counted 100
[2017-07-25 06:09] LABS: Giant Platelets Few; Hypochromasia 1+; Ovalocytes Slight; Platelet Estimate Adequate
[2017-07-25] MEDS: LEVOTHYROXINE 75 MCG TABLET PO SCH (06:23)
[2017-07-25] MEDS: SERTRALINE 25 MG TABLET PO SCH (09:35)
[2017-07-25] MEDS: MULTIVITAMIN (OCUVITE) TABLET PO SCH (09:35)
[2017-07-25] MEDS: NYSTATIN 500,000 UNIT/5 ML UDCUP SWISH/SWAL SCH ×4 (09:35→21:57)
[2017-07-25] MEDS: PANTOPRAZOLE 20 MG TABLET PO SCH (09:35)
[2017-07-25] MEDS: GABAPENTIN 300 MG CAPSULE PO SCH (09:35)
[2017-07-25] MEDS: MULTIVITAMIN (CENTRUM) TABLET PO SCH (09:35)
[2017-07-25] MEDS: predniSONE 10 MG TABLET PO SCH (09:37)
[2017-07-25] MEDS: DICYCLOMINE 10 MG CAPSULE PO SCH ×3 (09:42→21:57)
[2017-07-25] MEDS: POLYETHYLENE GLYCOL POWDER 255 GM BOTTLE PO SCH (09:44)
[2017-07-25] MEDS: CEFTAROLINE 600 MG in SODIUM CHLORIDE 0.9% 100 ML IV SCH ×2 (09:44→22:43)
[2017-07-25] MEDS ORDERED: MAGNESIUM SULF RIDER 4 GM in PREMIX 1 EACH IV PRN (13:23)
[2017-07-25] MEDS ORDERED: MAGNESIUM SULF RIDER 2 GM in PREMIX 1 EACH IV PRN (13:23)
[2017-07-25] MEDS: BACLOFEN 10 MG TABLET PO SCH (21:56)
[2017-07-25] MEDS: SIMVASTATIN 40 MG TABLET PO SCH (21:57)
[2017-07-25] MEDS: TERAZOSIN 5 MG CAPSULE PO SCH (21:57)
[2017-07-25] MEDS: MICAFUNGIN 100 MG in SODIUM CHLORIDE 0.9% 100 ML IV SCH (22:01)
[2017-07-26] MEDS: fentaNYL 2 MCG/ROPIV 0.2% EPID 100 ML EPIDURAL SCH ×5 (00:44→20:44)
[2017-07-26] MEDS: ALBUTEROL/IPRATROPIUM 3 ML NEB RESP TX SCH ×4 (01:23→21:56)
[2017-07-26] MEDS: PIPERACILLIN/TAZOBACTAM 3,375 MG in SODIUM CHLORIDE 0.9% 100 ML IV SCH ×3 (02:44→17:39)
[2017-07-26] MEDS: LEVOTHYROXINE 75 MCG TABLET PO SCH (07:20)
[2017-07-26] MEDS: DICYCLOMINE 10 MG CAPSULE PO SCH ×3 (09:00→20:34)
[2017-07-26] MEDS: PANTOPRAZOLE 20 MG TABLET PO SCH (09:00)
[2017-07-26] MEDS: NYSTATIN 500,000 UNIT/5 ML UDCUP SWISH/SWAL SCH ×4 (09:00→20:34)
[2017-07-26] MEDS: predniSONE 10 MG TABLET PO SCH (09:00)
[2017-07-26] MEDS: MULTIVITAMIN (CENTRUM) TABLET PO SCH (09:00)
[2017-07-26] MEDS: GABAPENTIN 300 MG CAPSULE PO SCH (09:00)
[2017-07-26] MEDS: CEFTAROLINE 600 MG in SODIUM CHLORIDE 0.9% 100 ML IV SCH ×2 (09:00→22:12)
[2017-07-26] MEDS: MULTIVITAMIN (OCUVITE) TABLET PO SCH (09:00)
[2017-07-26] MEDS: SERTRALINE 25 MG TABLET PO SCH (09:00)
[2017-07-26] MEDS: POLYETHYLENE GLYCOL POWDER 255 GM BOTTLE PO SCH (09:53)
[2017-07-26] MEDS: LACTATED RINGERS 1,000 ML IV SCH ×4 (09:55→22:13)
[2017-07-26] MEDS: ALPRAZolam 0.25 MG TABLET PO PRN ×2 (10:25→20:34)
[2017-07-26] MEDS: BACLOFEN 10 MG TABLET PO SCH (20:34)
[2017-07-26] MEDS: TERAZOSIN 5 MG CAPSULE PO SCH (20:35)
[2017-07-26] MEDS: SIMVASTATIN 40 MG TABLET PO SCH (20:36)
[2017-07-26] MEDS: MICAFUNGIN 100 MG in SODIUM CHLORIDE 0.9% 100 ML IV SCH (20:40)
[2017-07-27] MEDS: ALBUTEROL/IPRATROPIUM 3 ML NEB RESP TX SCH ×4 (01:02→20:17)
[2017-07-27] MEDS: fentaNYL 2 MCG/ROPIV 0.2% EPID 100 ML EPIDURAL SCH ×3 (02:58→16:52)
[2017-07-27 05:39] LABS: Basophils # 0.1 10*3/uL (0.0-0.2); Basophils % 0.5 % (0.0-0.8); Eosinophils # 0.2 10*3/uL (0.0-0.87); Eosinophils % 1.4 % (0.00-10.9); Hematocrit 27.1 VOL% (42.0-52.0); Hemoglobin 8.5 GM/DL (14.0-18.0); Immature Granulocytes % 1.9 %; Immature Granulocytes Absolute 0.27 #; Lymphocytes # 1.7 10*3/uL (1.4-4.0); Lymphocytes % 12.1 % (21.2-54.2); Mean Corpuscular HGB Conc 31.4 GM/DL (32-36); Mean Corpuscular Hemoglobin 28 PG (27-34); Mean Corpuscular Volume 89.7 FL (87-102); Monocytes % 7.4 % (1.7-12.7); Neutrophils # 10.6 10*3/uL (1.4-7.4); Neutrophils % 76.7 % (38.7-73.9); Platelet Count 318 T/CUMM (130-400); Red Blood Count 3.02 MC/CUMM (3.8-5.5); Red Cell Distribution Width 14.8 % (9.3-17.3); White Blood Count 13.9 T/CUMM (4-12)
[2017-07-27 06:04] LABS: Calcium 7.2 MG/DL (8.5-10.1); Osmolality,Calculated 283.8 MOS/KG (273-304); Potassium 3.2 MMOL/L (3.5-5.1)
[2017-07-27] MEDS: LEVOTHYROXINE 75 MCG TABLET PO SCH (07:03)
[2017-07-27] MEDS: LACTATED RINGERS 1,000 ML IV SCH ×3 (07:26→15:40)
[2017-07-27] MEDS: MULTIVITAMIN (CENTRUM) TABLET PO SCH (09:38)
[2017-07-27] MEDS: MULTIVITAMIN (OCUVITE) TABLET PO SCH (09:38)
[2017-07-27] MEDS: DICYCLOMINE 10 MG CAPSULE PO SCH ×3 (09:38→21:25)
[2017-07-27] MEDS: NYSTATIN 500,000 UNIT/5 ML UDCUP SWISH/SWAL SCH ×4 (09:39→21:26)
[2017-07-27] MEDS: GABAPENTIN 300 MG CAPSULE PO SCH (09:39)
[2017-07-27] MEDS: predniSONE 10 MG TABLET PO SCH (09:39)
[2017-07-27] MEDS: PANTOPRAZOLE 20 MG TABLET PO SCH (09:39)
[2017-07-27] MEDS: SERTRALINE 25 MG TABLET PO SCH (09:39)
[2017-07-27] MEDS: CEFTAROLINE 600 MG in SODIUM CHLORIDE 0.9% 100 ML IV SCH ×2 (09:39→21:23)
[2017-07-27] MEDS: POLYETHYLENE GLYCOL POWDER 255 GM BOTTLE PO SCH (10:37)
[2017-07-27] MEDS: POTASSIUM CHLORIDE 20 MEQ TABLET PO PRN ×3 (10:42→17:42)
[2017-07-27] MEDS: BACLOFEN 10 MG TABLET PO SCH (21:25)
[2017-07-27] MEDS: TERAZOSIN 5 MG CAPSULE PO SCH (21:26)
[2017-07-27] MEDS: SIMVASTATIN 40 MG TABLET PO SCH (21:26)
[2017-07-27] MEDS: MICAFUNGIN 100 MG in SODIUM CHLORIDE 0.9% 100 ML IV SCH (21:56)
[2017-07-28] MEDS: ALBUTEROL/IPRATROPIUM 3 ML NEB RESP TX SCH ×4 (01:03→20:02)
[2017-07-28] MEDS: LACTATED RINGERS 1,000 ML IV SCH ×4 (02:23→20:59)
[2017-07-28] MEDS: fentaNYL 2 MCG/ROPIV 0.2% EPID 100 ML EPIDURAL SCH ×2 (03:32→13:01)
[2017-07-28 04:57] LABS: Basophils % 0.4 % (0.0-0.8); Eosinophils # 0.2 10*3/uL (0.0-0.87); Eosinophils % 2.1 % (0.00-10.9); Hematocrit 25.5 VOL% (42.0-52.0); Hemoglobin 8.1 GM/DL (14.0-18.0); Immature Granulocytes % 2.4 %; Immature Granulocytes Absolute 0.25 #; Lymphocytes # 1.5 10*3/uL (1.4-4.0); Lymphocytes % 14.2 % (21.2-54.2); Mean Corpuscular HGB Conc 31.8 GM/DL (32-36); Mean Corpuscular Hemoglobin 29 PG (27-34); Mean Corpuscular Volume 89.8 FL (87-102); Mean Platelet Volume 9.5 FL (9.6-12.0); Monocytes # 0.8 10*3/uL (0.11-0.8); Neutrophils # 7.5 10*3/uL (1.4-7.4); Neutrophils % 72.9 % (38.7-73.9); Platelet Count 306 T/CUMM (130-400); Red Blood Count 2.84 MC/CUMM (3.8-5.5); Red Cell Distribution Width 14.8 % (9.3-17.3); White Blood Count 10.3 T/CUMM (4-12)
[2017-07-28 05:23] LABS: Band Neutrophils 2 % (0-10); Eosinophils 1 % (0-10); Giant Platelets Few; Hypochromasia 1+; Lymphocytes 10 % (20-55); Platelet Estimate Adequate; Segmented Neutrophils 79 % (50-85); Total Cells Counted 100
[2017-07-28 05:37] LABS: Albumin 1.3 G/DL (3.4-5.0); Bilirubin,Total 0.6 MG/DL (0.2-1.0); Calcium 7.1 MG/DL (8.5-10.1); Magnesium 1.9 MG/DL (1.8-2.4); Osmolality,Calculated 286.6 MOS/KG (273-304); Potassium 3.5 MMOL/L (3.5-5.1); Total Protein 4.6 G/DL (6.4-8.3)
[2017-07-28] MEDS: LEVOTHYROXINE 75 MCG TABLET PO SCH (06:22)
[2017-07-28] MEDS: CEFTAROLINE 600 MG in SODIUM CHLORIDE 0.9% 100 ML IV SCH (08:32)
[2017-07-28] MEDS: GABAPENTIN 300 MG CAPSULE PO SCH (08:35)
[2017-07-28] MEDS: PANTOPRAZOLE 20 MG TABLET PO SCH (08:35)
[2017-07-28] MEDS: SERTRALINE 25 MG TABLET PO SCH (08:35)
[2017-07-28] MEDS: predniSONE 10 MG TABLET PO SCH (08:35)
[2017-07-28] MEDS: NYSTATIN 500,000 UNIT/5 ML UDCUP SWISH/SWAL SCH ×3 (08:35→17:20)
[2017-07-28] MEDS: MULTIVITAMIN (OCUVITE) TABLET PO SCH (08:35)
[2017-07-28] MEDS: MULTIVITAMIN (CENTRUM) TABLET PO SCH (08:35)
[2017-07-28] MEDS: DICYCLOMINE 10 MG CAPSULE PO SCH ×3 (08:35→21:00)
[2017-07-28] MEDS: POLYETHYLENE GLYCOL POWDER 255 GM BOTTLE PO SCH (08:41)
[2017-07-28] MEDS: LINEZOLID INJ 600 MG in PREMIX 1 EACH IV SCH (16:56)
[2017-07-28] MEDS: MEROPENEM 1,000 MG in SYRINGE 1 EACH IV SCH ×2 (18:09→23:43)
[2017-07-28] MEDS: BACLOFEN 10 MG TABLET PO SCH (21:00)
[2017-07-28] MEDS: LACTOBACILLUS ACIDOPHILUS/BULGARICUS CAPLET PO SCH (21:00)
[2017-07-28] MEDS: TERAZOSIN 5 MG CAPSULE PO SCH (21:01)
[2017-07-28] MEDS: ALPRAZolam 0.25 MG TABLET PO PRN (21:01)
[2017-07-28] MEDS: SIMVASTATIN 40 MG TABLET PO SCH (21:01)
[2017-07-29] MEDS: ALBUTEROL/IPRATROPIUM 3 ML NEB RESP TX SCH ×4 (00:30→20:34)
[2017-07-29] MEDS: LINEZOLID INJ 600 MG in PREMIX 1 EACH IV SCH ×2 (04:07→16:27)
[2017-07-29] MEDS: LACTATED RINGERS 1,000 ML IV SCH ×4 (04:07→16:35)
[2017-07-29 06:01] LABS: Calcium 7.3 MG/DL (8.5-10.1); Osmolality,Calculated 284.7 MOS/KG (273-304); Potassium 3.3 MMOL/L (3.5-5.1)
[2017-07-29 06:03] LABS: Basophils # 0.1 10*3/uL (0.0-0.2); Basophils % 0.5 % (0.0-0.8); Eosinophils # 0.3 10*3/uL (0.0-0.87); Eosinophils % 2.7 % (0.00-10.9); Hematocrit 27.6 VOL% (42.0-52.0); Immature Granulocytes % 3.4 %; Immature Granulocytes Absolute 0.37 #; Lymphocytes # 1.6 10*3/uL (1.4-4.0); Lymphocytes % 14.3 % (21.2-54.2); Mean Corpuscular HGB Conc 32.6 GM/DL (32-36); Mean Corpuscular Hemoglobin 29 PG (27-34); Mean Corpuscular Volume 89.3 FL (87-102); Mean Platelet Volume 10.9 FL (9.6-12.0); Monocytes % 8.6 % (1.7-12.7); Neutrophils # 7.8 10*3/uL (1.4-7.4); Neutrophils % 70.5 % (38.7-73.9); Platelet Count 191 T/CUMM (130-400); Red Blood Count 3.09 MC/CUMM (3.8-5.5); Red Cell Distribution Width 14.8 % (9.3-17.3)
[2017-07-29] MEDS: LEVOTHYROXINE 75 MCG TABLET PO SCH (06:07)
[2017-07-29] MEDS: MEROPENEM 1,000 MG in SYRINGE 1 EACH IV SCH ×3 (06:07→22:02)
[2017-07-29 06:19] LABS: Giant Platelets Few; Hypochromasia 1+; Ovalocytes Slight; Platelet Estimate Adequate
[2017-07-29] MEDS ORDERED: SERTRALINE 50 MG TABLET PO SCH (09:00)
[2017-07-29] MEDS: ONDANSETRON 4 MG/2 ML VIAL IV PRN ×2 (09:36→09:52)
[2017-07-29] MEDS: KETOROLAC 10 MG TABLET PO PRN ×2 (10:08→16:55)
[2017-07-29] MEDS: LACTOBACILLUS ACIDOPHILUS/BULGARICUS CAPLET PO SCH ×2 (10:09→22:00)
[2017-07-29] MEDS: FLUCONAZOLE 200 MG TABLET PO SCH (10:09)
[2017-07-29] MEDS: MULTIVITAMIN (OCUVITE) TABLET PO SCH (10:09)
[2017-07-29] MEDS: PANTOPRAZOLE 20 MG TABLET PO SCH (10:09)
[2017-07-29] MEDS: DICYCLOMINE 10 MG CAPSULE PO SCH ×3 (10:09→22:00)
[2017-07-29] MEDS: predniSONE 10 MG TABLET PO SCH (10:09)
[2017-07-29] MEDS: MULTIVITAMIN (CENTRUM) TABLET PO SCH (10:09)
[2017-07-29] MEDS: GABAPENTIN 300 MG CAPSULE PO SCH (10:10)
[2017-07-29] MEDS: ALPRAZolam 0.25 MG TABLET PO PRN ×2 (10:10→22:00)
[2017-07-29] MEDS: POTASSIUM CHLORIDE 20 MEQ TABLET PO PRN ×3 (10:10→14:30)
[2017-07-29] MEDS: POLYETHYLENE GLYCOL POWDER 255 GM BOTTLE PO SCH (10:11)
[2017-07-29] MEDS ORDERED: ONDANSETRON 4 MG/2 ML VIAL IV PRN (10:27)
[2017-07-29] MEDS: TERAZOSIN 5 MG CAPSULE PO SCH (22:00)
[2017-07-29] MEDS: SIMVASTATIN 40 MG TABLET PO SCH (22:00)
[2017-07-29] MEDS: BACLOFEN 10 MG TABLET PO SCH (22:00)
[2017-07-30] MEDS: ALBUTEROL/IPRATROPIUM 3 ML NEB RESP TX SCH ×4 (00:35→19:02)
[2017-07-30] MEDS: LACTATED RINGERS 1,000 ML IV SCH ×5 (00:59→21:22)
[2017-07-30] MEDS: LINEZOLID INJ 600 MG in PREMIX 1 EACH IV SCH ×2 (04:32→16:50)
[2017-07-30 05:34] LABS: Basophils # 0.1 10*3/uL (0.0-0.2); Basophils % 0.5 % (0.0-0.8); Eosinophils # 0.3 10*3/uL (0.0-0.87); Eosinophils % 2.9 % (0.00-10.9); Hematocrit 25.9 VOL% (42.0-52.0); Hemoglobin 8.2 GM/DL (14.0-18.0); Immature Granulocytes % 4.2 %; Immature Granulocytes Absolute 0.46 #; Lymphocytes # 2.1 10*3/uL (1.4-4.0); Lymphocytes % 18.9 % (21.2-54.2); Mean Corpuscular HGB Conc 31.7 GM/DL (32-36); Mean Corpuscular Hemoglobin 29 PG (27-34); Mean Corpuscular Volume 92.8 FL (87-102); Mean Platelet Volume 9.5 FL (9.6-12.0); Monocytes % 8.7 % (1.7-12.7); Neutrophils # 7.2 10*3/uL (1.4-7.4); Neutrophils % 64.8 % (38.7-73.9); Platelet Count 306 T/CUMM (130-400); Red Blood Count 2.79 MC/CUMM (3.8-5.5); Red Cell Distribution Width 15.3 % (9.3-17.3); White Blood Count 11.1 T/CUMM (4-12)
[2017-07-30 05:50] LABS: Calcium 7.2 MG/DL (8.5-10.1); Osmolality,Calculated 284.8 MOS/KG (273-304); Potassium 3.6 MMOL/L (3.5-5.1)
[2017-07-30] MEDS: LEVOTHYROXINE 75 MCG TABLET PO SCH (06:43)
[2017-07-30] MEDS: MEROPENEM 1,000 MG in SYRINGE 1 EACH IV SCH ×3 (06:43→23:36)
[2017-07-30] MEDS: predniSONE 10 MG TABLET PO SCH (09:16)
[2017-07-30] MEDS: FLUCONAZOLE 200 MG TABLET PO SCH (09:16)
[2017-07-30] MEDS: MULTIVITAMIN (CENTRUM) TABLET PO SCH (09:16)
[2017-07-30] MEDS: MULTIVITAMIN (OCUVITE) TABLET PO SCH (09:16)
[2017-07-30] MEDS: PANTOPRAZOLE 20 MG TABLET PO SCH (09:16)
[2017-07-30] MEDS: DICYCLOMINE 10 MG CAPSULE PO SCH ×3 (09:16→21:21)
[2017-07-30] MEDS: LACTOBACILLUS ACIDOPHILUS/BULGARICUS CAPLET PO SCH ×2 (09:16→21:21)
[2017-07-30] MEDS: GABAPENTIN 300 MG CAPSULE PO SCH (09:16)
[2017-07-30] MEDS: ALPRAZolam 0.25 MG TABLET PO PRN ×2 (09:17→21:21)
[2017-07-30] MEDS: KETOROLAC 10 MG TABLET PO PRN (09:17)
[2017-07-30] MEDS: POLYETHYLENE GLYCOL POWDER 255 GM BOTTLE PO SCH (09:18)
[2017-07-30] MEDS ORDERED: FUROSEMIDE 40 MG/4 ML VIAL IV ONE (12:50)
[2017-07-30] MEDS: SIMVASTATIN 40 MG TABLET PO SCH (21:21)
[2017-07-30] MEDS: BACLOFEN 10 MG TABLET PO SCH (21:21)
[2017-07-30] MEDS: TERAZOSIN 5 MG CAPSULE PO SCH (21:21)
[2017-07-31] MEDS: ALBUTEROL/IPRATROPIUM 3 ML NEB RESP TX SCH ×3 (00:06→13:25)
[2017-07-31] MEDS: LINEZOLID INJ 600 MG in PREMIX 1 EACH IV SCH (04:16)
[2017-07-31] MEDS: LACTATED RINGERS 1,000 ML IV SCH (04:26)
[2017-07-31 05:54] LABS: Osmolality,Calculated 285.7 MOS/KG (273-304); Potassium 3.7 MMOL/L (3.5-5.1)
[2017-07-31] MEDS: LEVOTHYROXINE 75 MCG TABLET PO SCH (06:29)
[2017-07-31] MEDS: MEROPENEM 1,000 MG in SYRINGE 1 EACH IV SCH ×2 (06:29→15:17)
[2017-07-31] MEDS ORDERED: FUROSEMIDE 40 MG TABLET PO SCH (09:00)
[2017-07-31] MEDS: MULTIVITAMIN (CENTRUM) TABLET PO SCH (09:08)
[2017-07-31] MEDS: GABAPENTIN 300 MG CAPSULE PO SCH (09:08)
[2017-07-31] MEDS: PANTOPRAZOLE 20 MG TABLET PO SCH (09:08)
[2017-07-31] MEDS: MULTIVITAMIN (OCUVITE) TABLET PO SCH (09:08)
[2017-07-31] MEDS: DICYCLOMINE 10 MG CAPSULE PO SCH (09:08)
[2017-07-31] MEDS: LACTOBACILLUS ACIDOPHILUS/BULGARICUS CAPLET PO SCH (09:08)
[2017-07-31] MEDS: predniSONE 10 MG TABLET PO SCH (09:08)
[2017-07-31] MEDS: FLUCONAZOLE 200 MG TABLET PO SCH (09:08)
[2017-07-31] MEDS: POLYETHYLENE GLYCOL POWDER 255 GM BOTTLE PO SCH (09:12)
[2017-07-31 11:57] VITALS: BP 150/70
== END 2017-07-31 15:28 | DRG 853 ==
LOC: EDBD → EDUNIT# → N.ED 10:03 → N.EDINP 14:04 → N.CC 15:01 → N.TELEN 07-17 14:50 → N.ICU 07-24 16:58 → N.TELEN 07-25 16:48
PROVIDERS: ADMIT Internal Medicine; ATTEND Family Medicine

== ENCOUNTER 2018-02-18 13:05 | Inpatient (IN) ==
[2018-02-18] MEDS ORDERED: methylPREDNISolone SOD SUC 40 MG/1 ML VIAL IV STA (14:20)
[2018-02-18] MEDS ORDERED: ALBUTEROL/IPRATROPIUM 3 ML NEB RESP TX STA (14:20)
[2018-02-18] MEDS ORDERED: LEVOFLOXACIN INJ 500 MG in PREMIX 1 EACH IV STA (14:20)
[2018-02-18 14:31] LABS: Basophils # 0.1 10*3/uL (0.0-0.2); Basophils % 0.5 % (0.0-0.8); Eosinophils # 0.2 10*3/uL (0.0-0.87); Eosinophils % 1.6 % (0.00-10.9); Hematocrit 36.1 VOL% (42.0-52.0); Hemoglobin 11.7 GM/DL (14.0-18.0); Immature Granulocytes % 1.4 %; Immature Granulocytes Absolute 0.13 #; Lymphocytes # 1.4 10*3/uL (1.4-4.0); Lymphocytes % 15.1 % (21.2-54.2); Mean Corpuscular HGB Conc 32.4 GM/DL (32-36); Mean Corpuscular Hemoglobin 29 PG (27-34); Mean Corpuscular Volume 89.8 FL (87-102); Mean Platelet Volume 9.9 FL (9.6-12.0); Monocytes # 1.1 10*3/uL (0.11-0.8); Monocytes % 11.8 % (1.7-12.7); Neutrophils # 6.6 10*3/uL (1.4-7.4); Neutrophils % 69.6 % (38.7-73.9); Platelet Count 428 T/CUMM (130-400); Red Blood Count 4.02 MC/CUMM (3.8-5.5); Red Cell Distribution Width 18.6 % (9.3-17.3); White Blood Count 9.5 T/CUMM (4-12)
[2018-02-18 14:53] LABS: Albumin 2.3 G/DL (3.4-5.0); Bilirubin,Total 0.4 MG/DL (0.2-1.0); Calcium 9.1 MG/DL (8.5-10.1); Osmolality,Calculated 280.5 MOS/KG (273-304); Potassium 4.2 MMOL/L (3.5-5.1)
[2018-02-18] MEDS ORDERED: ONDANSETRON 4 MG/2 ML VIAL IV PRN (15:36)
[2018-02-18] MEDS ORDERED: ACETAMINOPHEN 325 MG TABLET PO PRN (15:36)
[2018-02-18] MEDS: ALBUTEROL/IPRATROPIUM 3 ML NEB RESP TX SCH (19:18)
[2018-02-18] MEDS: ZALEPLON 5 MG CAPSULE PO PRN (22:19)
[2018-02-18] MEDS: methylPREDNISolone SOD SUC 40 MG/1 ML VIAL IV SCH (22:19)
[2018-02-18] MEDS: TERAZOSIN 5 MG CAPSULE PO SCH (22:19)
[2018-02-18] MEDS: DOCUSATE SODIUM 100 MG CAPSULE PO SCH (22:19)
[2018-02-18] MEDS: SIMVASTATIN 40 MG TABLET PO SCH (22:19)
[2018-02-19] MEDS: ALBUTEROL/IPRATROPIUM 3 ML NEB RESP TX SCH ×4 (00:07→19:19)
[2018-02-19] MEDS: ALPRAZolam 0.5 MG TABLET PO PRN (02:30)
[2018-02-19] MEDS: LEVOTHYROXINE 75 MCG TABLET PO SCH (05:45)
[2018-02-19 06:38] LABS: Basophils % 0.2 % (0.0-0.8); Hematocrit 32.8 VOL% (42.0-52.0); Hemoglobin 10.5 GM/DL (14.0-18.0); Immature Granulocytes % 1.1 %; Immature Granulocytes Absolute 0.09 #; Lymphocytes # 1.1 10*3/uL (1.4-4.0); Lymphocytes % 13.4 % (21.2-54.2); Mean Corpuscular Hemoglobin 29 PG (27-34); Mean Corpuscular Volume 89.4 FL (87-102); Mean Platelet Volume 9.7 FL (9.6-12.0); Monocytes # 0.5 10*3/uL (0.11-0.8); Monocytes % 5.7 % (1.7-12.7); Neutrophils # 6.7 10*3/uL (1.4-7.4); Neutrophils % 79.6 % (38.7-73.9); Platelet Count 396 T/CUMM (130-400); Red Blood Count 3.67 MC/CUMM (3.8-5.5); Red Cell Distribution Width 18.7 % (9.3-17.3); White Blood Count 8.4 T/CUMM (4-12)
[2018-02-19 07:07] LABS: Band Neutrophils 8 % (0-10); Lymphocytes 15 % (20-55); Segmented Neutrophils 73 % (50-85); Total Cells Counted 100
[2018-02-19 07:08] LABS: Hypochromasia 1+; Microcytosis 1+; Platelet Estimate Normal
[2018-02-19 07:09] LABS: Bilirubin,Total 0.5 MG/DL (0.2-1.0); Calcium 8.7 MG/DL (8.5-10.1); Osmolality,Calculated 282.5 MOS/KG (273-304); Potassium 4.4 MMOL/L (3.5-5.1); Total Protein 7.1 G/DL (6.4-8.3)
[2018-02-19] MEDS: DOCUSATE SODIUM 100 MG CAPSULE PO SCH ×2 (08:32→20:22)
[2018-02-19] MEDS: MULTIVITAMIN (CENTRUM) TABLET PO SCH (08:32)
[2018-02-19] MEDS: LEVOFLOXACIN INJ 500 MG in PREMIX 1 EACH IV SCH (08:39)
[2018-02-19] MEDS: methylPREDNISolone SOD SUC 40 MG/1 ML VIAL IV SCH ×2 (08:40→20:22)
[2018-02-19] MEDS: PIPERACILLIN/TAZOBACTAM 3,375 MG in SODIUM CHLORIDE 0.9% 100 ML IV SCH ×2 (10:24→20:23)
[2018-02-19] MEDS ORDERED: NON-FORMULARY MEDICATION (Umeclidinium Brm/Vilanterol Tr [Anoro Ellipta] 1 PUFF) INH SCH (12:00)
[2018-02-19] MEDS: PANTOPRAZOLE 40 MG TABLET PO SCH (19:50)
[2018-02-19] MEDS: TERAZOSIN 5 MG CAPSULE PO SCH (20:22)
[2018-02-19] MEDS: SIMVASTATIN 40 MG TABLET PO SCH (20:22)
[2018-02-19] MEDS: ZALEPLON 5 MG CAPSULE PO PRN (20:25)
[2018-02-20] MEDS: ALBUTEROL/IPRATROPIUM 3 ML NEB RESP TX SCH ×4 (00:36→18:51)
[2018-02-20] MEDS: ALPRAZolam 0.5 MG TABLET PO PRN ×2 (00:55→11:20)
[2018-02-20] MEDS: PIPERACILLIN/TAZOBACTAM 3,375 MG in SODIUM CHLORIDE 0.9% 100 ML IV SCH ×3 (05:40→21:04)
[2018-02-20] MEDS: LEVOTHYROXINE 75 MCG TABLET PO SCH (06:03)
[2018-02-20 07:05] LABS: Basophils % 0.3 % (0.0-0.8); Hematocrit 31.9 VOL% (42.0-52.0); Hemoglobin 10.1 GM/DL (14.0-18.0); Immature Granulocytes % 1.7 %; Immature Granulocytes Absolute 0.19 #; Lymphocytes # 1.4 10*3/uL (1.4-4.0); Lymphocytes % 13.3 % (21.2-54.2); Mean Corpuscular HGB Conc 31.7 GM/DL (32-36); Mean Corpuscular Hemoglobin 29 PG (27-34); Mean Corpuscular Volume 90.1 FL (87-102); Monocytes # 1.1 10*3/uL (0.11-0.8); Monocytes % 10.3 % (1.7-12.7); Neutrophils # 8.1 10*3/uL (1.4-7.4); Neutrophils % 74.4 % (38.7-73.9); Platelet Count 407 T/CUMM (130-400); Red Blood Count 3.54 MC/CUMM (3.8-5.5); White Blood Count 10.9 T/CUMM (4-12)
[2018-02-20 07:23] LABS: Alanine Aminotransferase 53 U/L (16-61); Alkaline Phosphatase 64 U/L (45-117); Aspartate Amino Transferase 35 U/L (0-37); Bilirubin,Total < 0.39 MG/DL (0.2-1.0); Blood Urea Nitrogen 27 MG/DL (7-18); Calcium 8.5 MG/DL (8.5-10.1); Glucose 136 MG/DL (74-106); Osmolality,Calculated 285.4 MOS/KG (273-304); Potassium 4.3 MMOL/L (3.5-5.1); Sodium 140 MMOL/L (136-145); Total Protein 6.8 G/DL (6.4-8.3)
[2018-02-20 07:29] LABS: Band Neutrophils 3 % (0-10); Hypochromasia 1+; Lymphocytes 17 % (20-55); Ovalocytes Slight; Platelet Estimate Increased; Segmented Neutrophils 74 % (50-85); Total Cells Counted 100
[2018-02-20 07:30] LABS: Microcytosis 1+
[2018-02-20] MEDS: LEVOFLOXACIN INJ 500 MG in PREMIX 1 EACH IV SCH (09:17)
[2018-02-20] MEDS: DOCUSATE SODIUM 100 MG CAPSULE PO SCH ×2 (09:18→21:03)
[2018-02-20] MEDS: PANTOPRAZOLE 40 MG TABLET PO SCH (09:18)
[2018-02-20] MEDS: MULTIVITAMIN (CENTRUM) TABLET PO SCH (09:18)
[2018-02-20] MEDS: predniSONE 10 MG TABLET PO SCH (09:19)
[2018-02-20] MEDS: GABAPENTIN 300 MG CAPSULE PO SCH (21:03)
[2018-02-20] MEDS: SIMVASTATIN 40 MG TABLET PO SCH (21:03)
[2018-02-20] MEDS: TEMAZEPAM 15 MG CAPSULE PO PRN (21:04)
[2018-02-20] MEDS: TERAZOSIN 5 MG CAPSULE PO SCH (21:04)
[2018-02-21] MEDS: ALBUTEROL/IPRATROPIUM 3 ML NEB RESP TX SCH ×4 (02:05→19:03)
[2018-02-21] MEDS: PIPERACILLIN/TAZOBACTAM 3,375 MG in SODIUM CHLORIDE 0.9% 100 ML IV SCH ×3 (05:15→20:50)
[2018-02-21 06:00] LABS: Basophils # 0.1 10*3/uL (0.0-0.2); Basophils % 0.4 % (0.0-0.8); Eosinophils % 0.3 % (0.00-10.9); Hematocrit 34.5 VOL% (42.0-52.0); Hemoglobin 10.8 GM/DL (14.0-18.0); Immature Granulocytes % 3.8 %; Immature Granulocytes Absolute 0.45 #; Lymphocytes % 17.1 % (21.2-54.2); Mean Corpuscular HGB Conc 31.3 GM/DL (32-36); Mean Corpuscular Hemoglobin 28 PG (27-34); Mean Corpuscular Volume 90.3 FL (87-102); Mean Platelet Volume 9.9 FL (9.6-12.0); Monocytes # 1.5 10*3/uL (0.11-0.8); Monocytes % 12.3 % (1.7-12.7); Neutrophils # 7.9 10*3/uL (1.4-7.4); Neutrophils % 66.1 % (38.7-73.9); Platelet Count 436 T/CUMM (130-400); Red Blood Count 3.82 MC/CUMM (3.8-5.5); White Blood Count 11.9 T/CUMM (4-12)
[2018-02-21] MEDS: LEVOTHYROXINE 75 MCG TABLET PO SCH (06:27)
[2018-02-21 06:31] LABS: Albumin 1.9 G/DL (3.4-5.0); Bilirubin,Total 0.4 MG/DL (0.2-1.0); Calcium 8.6 MG/DL (8.5-10.1); Osmolality,Calculated 284.1 MOS/KG (273-304); Total Protein 6.7 G/DL (6.4-8.3)
[2018-02-21] MEDS: MULTIVITAMIN (CENTRUM) TABLET PO SCH (09:29)
[2018-02-21] MEDS: predniSONE 10 MG TABLET PO SCH (09:29)
[2018-02-21] MEDS: PANTOPRAZOLE 40 MG TABLET PO SCH (09:30)
[2018-02-21] MEDS: DOCUSATE SODIUM 100 MG CAPSULE PO SCH ×2 (09:30→20:49)
[2018-02-21] MEDS: LEVOFLOXACIN INJ 500 MG in PREMIX 1 EACH IV SCH (09:30)
[2018-02-21] MEDS: GABAPENTIN 300 MG CAPSULE PO SCH (20:49)
[2018-02-21] MEDS: SIMVASTATIN 40 MG TABLET PO SCH (20:49)
[2018-02-21] MEDS: TERAZOSIN 5 MG CAPSULE PO SCH (20:49)
[2018-02-21] MEDS: ZALEPLON 5 MG CAPSULE PO PRN (20:54)
[2018-02-21] MEDS: guaiFENesin 200 MG/10 ML UDCUP PO PRN (23:25)
[2018-02-22] MEDS: ALBUTEROL/IPRATROPIUM 3 ML NEB RESP TX SCH ×4 (00:23→18:30)
[2018-02-22] MEDS: PIPERACILLIN/TAZOBACTAM 3,375 MG in SODIUM CHLORIDE 0.9% 100 ML IV SCH ×3 (04:22→21:43)
[2018-02-22] MEDS: LEVOTHYROXINE 75 MCG TABLET PO SCH (06:14)
[2018-02-22 06:42] LABS: Basophils # 0.1 10*3/uL (0.0-0.2); Basophils % 0.6 % (0.0-0.8); Eosinophils # 0.1 10*3/uL (0.0-0.87); Eosinophils % 0.8 % (0.00-10.9); Hematocrit 35.6 VOL% (42.0-52.0); Hemoglobin 11.6 GM/DL (14.0-18.0); Immature Granulocytes % 6.1 %; Immature Granulocytes Absolute 0.91 #; Lymphocytes # 3.3 10*3/uL (1.4-4.0); Lymphocytes % 22.1 % (21.2-54.2); Mean Corpuscular HGB Conc 32.6 GM/DL (32-36); Mean Corpuscular Hemoglobin 29 PG (27-34); Mean Corpuscular Volume 88.6 FL (87-102); Mean Platelet Volume 9.5 FL (9.6-12.0); Monocytes # 1.3 10*3/uL (0.11-0.8); Monocytes % 8.5 % (1.7-12.7); Neutrophils # 9.2 10*3/uL (1.4-7.4); Neutrophils % 61.9 % (38.7-73.9); Platelet Count 454 T/CUMM (130-400); Red Blood Count 4.02 MC/CUMM (3.8-5.5); Red Cell Distribution Width 18.8 % (9.3-17.3); White Blood Count 14.8 T/CUMM (4-12)
[2018-02-22 06:51] LABS: Calcium 8.3 MG/DL (8.5-10.1); Osmolality,Calculated 281.3 MOS/KG (273-304); Potassium 4.1 MMOL/L (3.5-5.1)
[2018-02-22 07:10] LABS: Band Neutrophils 1 % (0-10); Eosinophils 1 % (0-10); Lymphocytes 22 % (20-55); Segmented Neutrophils 69 % (50-85); Total Cells Counted 100
[2018-02-22 07:11] LABS: Hypochromasia 1+; Microcytosis 1+
[2018-02-22] MEDS: PANTOPRAZOLE 40 MG TABLET PO SCH (09:15)
[2018-02-22] MEDS: predniSONE 10 MG TABLET PO SCH (09:15)
[2018-02-22] MEDS: MULTIVITAMIN (CENTRUM) TABLET PO SCH (09:15)
[2018-02-22] MEDS: LEVOFLOXACIN INJ 500 MG in PREMIX 1 EACH IV SCH (09:15)
[2018-02-22] MEDS: DOCUSATE SODIUM 100 MG CAPSULE PO SCH ×2 (09:15→21:41)
[2018-02-22] MEDS: SIMVASTATIN 40 MG TABLET PO SCH (21:41)
[2018-02-22] MEDS: TERAZOSIN 5 MG CAPSULE PO SCH (21:41)
[2018-02-22] MEDS: guaiFENesin 200 MG/10 ML UDCUP PO PRN (21:41)
[2018-02-22] MEDS: GABAPENTIN 300 MG CAPSULE PO SCH (21:41)
[2018-02-22] MEDS: TEMAZEPAM 15 MG CAPSULE PO PRN (21:43)
[2018-02-23] MEDS: guaiFENesin 200 MG/10 ML UDCUP PO PRN ×3 (01:54→21:38)
[2018-02-23] MEDS: PIPERACILLIN/TAZOBACTAM 3,375 MG in SODIUM CHLORIDE 0.9% 100 ML IV SCH ×3 (05:58→21:37)
[2018-02-23] MEDS: LEVOTHYROXINE 75 MCG TABLET PO SCH (05:59)
[2018-02-23] MEDS: ALBUTEROL/IPRATROPIUM 3 ML NEB RESP TX SCH ×4 (07:28→19:35)
[2018-02-23] MEDS: PANTOPRAZOLE 40 MG TABLET PO SCH (09:01)
[2018-02-23] MEDS: predniSONE 10 MG TABLET PO SCH (09:01)
[2018-02-23] MEDS: MULTIVITAMIN (CENTRUM) TABLET PO SCH (09:01)
[2018-02-23] MEDS: DOCUSATE SODIUM 100 MG CAPSULE PO SCH ×2 (09:02→21:36)
[2018-02-23] MEDS: LEVOFLOXACIN INJ 500 MG in PREMIX 1 EACH IV SCH (10:07)
[2018-02-23 10:57] LABS: Apearance,Urine CLEAR (Clear); Bilirubin,Urine Negative (Negative); Blood, Urine Negative (Negative); Glucose,Urine (UA) Negative (Negative); Ketones,Urine Negative (Negative); Mucus,Urine Occasional /LPF (Occasional); Nitrite,Urine Negative (Negative); Protein,Urine Negative; Urine Color Yellow (Yellow); Urine Specific Gravity 1.017 (1.001-1.035); Urine Urobilinogen < 2.0 EU/DL (0.2-1.0); WBC,Urine 1 /HPF (0-6)
[2018-02-23] MEDS: GABAPENTIN 600 MG TABLET PO SCH (21:36)
[2018-02-23] MEDS: SIMVASTATIN 40 MG TABLET PO SCH (21:36)
[2018-02-23] MEDS: TEMAZEPAM 15 MG CAPSULE PO PRN (21:36)
[2018-02-23] MEDS: TERAZOSIN 5 MG CAPSULE PO SCH (21:37)
[2018-02-24] MEDS: ALBUTEROL/IPRATROPIUM 3 ML NEB RESP TX SCH ×4 (00:19→19:41)
[2018-02-24 05:17] LABS: Basophils # 0.2 10*3/uL (0.0-0.2); Basophils % 0.9 % (0.0-0.8); Eosinophils # 0.5 10*3/uL (0.0-0.87); Eosinophils % 3.2 % (0.00-10.9); Hematocrit 33.6 VOL% (42.0-52.0); Hemoglobin 10.9 GM/DL (14.0-18.0); Immature Granulocytes % 6.7 %; Immature Granulocytes Absolute 1.11 #; Lymphocytes # 3.3 10*3/uL (1.4-4.0); Lymphocytes % 19.8 % (21.2-54.2); Mean Corpuscular HGB Conc 32.4 GM/DL (32-36); Mean Corpuscular Hemoglobin 29 PG (27-34); Mean Corpuscular Volume 89.1 FL (87-102); Mean Platelet Volume 10.1 FL (9.6-12.0); Monocytes # 0.8 10*3/uL (0.11-0.8); Neutrophils # 10.6 10*3/uL (1.4-7.4); Neutrophils % 64.4 % (38.7-73.9); Platelet Count 292 T/CUMM (130-400); Red Blood Count 3.77 MC/CUMM (3.8-5.5); Red Cell Distribution Width 18.9 % (9.3-17.3); White Blood Count 16.5 T/CUMM (4-12)
[2018-02-24 05:39] LABS: Band Neutrophils 1 % (0-10); Eosinophils 5 % (0-10); Hypochromasia 1+; Lymphocytes 22 % (20-55); Microcytosis 1+; Ovalocytes Slight; Platelet Estimate Adequate; Segmented Neutrophils 66 % (50-85); Total Cells Counted 100
[2018-02-24 05:58] LABS: Albumin 1.8 G/DL (3.4-5.0); Bilirubin,Total 0.5 MG/DL (0.2-1.0); Calcium 8.2 MG/DL (8.5-10.1); Osmolality,Calculated 281.3 MOS/KG (273-304); Total Protein 6.5 G/DL (6.4-8.3)
[2018-02-24] MEDS: LEVOTHYROXINE 75 MCG TABLET PO SCH (06:35)
[2018-02-24] MEDS: PIPERACILLIN/TAZOBACTAM 3,375 MG in SODIUM CHLORIDE 0.9% 100 ML IV SCH ×3 (06:36→21:48)
[2018-02-24] MEDS: DOCUSATE SODIUM 100 MG CAPSULE PO SCH ×2 (08:28→21:49)
[2018-02-24] MEDS: predniSONE 10 MG TABLET PO SCH (08:28)
[2018-02-24] MEDS: MULTIVITAMIN (CENTRUM) TABLET PO SCH (08:28)
[2018-02-24] MEDS: PANTOPRAZOLE 40 MG TABLET PO SCH (08:28)
[2018-02-24] MEDS: LEVOFLOXACIN INJ 500 MG in PREMIX 1 EACH IV SCH (11:06)
[2018-02-24] MEDS: GABAPENTIN 600 MG TABLET PO SCH (21:48)
[2018-02-24] MEDS: SIMVASTATIN 40 MG TABLET PO SCH (21:49)
[2018-02-24] MEDS: TERAZOSIN 5 MG CAPSULE PO SCH (21:49)
[2018-02-25] MEDS: ALBUTEROL/IPRATROPIUM 3 ML NEB RESP TX SCH ×4 (00:50→19:09)
[2018-02-25 04:37] LABS: Basophils # 0.1 10*3/uL (0.0-0.2); Basophils % 0.8 % (0.0-0.8); Eosinophils # 0.6 10*3/uL (0.0-0.87); Eosinophils % 3.6 % (0.00-10.9); Hematocrit 32.7 VOL% (42.0-52.0); Hemoglobin 10.4 GM/DL (14.0-18.0); Immature Granulocytes % 7.9 %; Immature Granulocytes Absolute 1.25 #; Lymphocytes # 3.8 10*3/uL (1.4-4.0); Lymphocytes % 24.2 % (21.2-54.2); Mean Corpuscular HGB Conc 31.8 GM/DL (32-36); Mean Corpuscular Hemoglobin 29 PG (27-34); Mean Corpuscular Volume 92.1 FL (87-102); Mean Platelet Volume 9.5 FL (9.6-12.0); Monocytes # 0.8 10*3/uL (0.11-0.8); Monocytes % 5.2 % (1.7-12.7); Neutrophils # 9.3 10*3/uL (1.4-7.4); Neutrophils % 58.3 % (38.7-73.9); Platelet Count 360 T/CUMM (130-400); Red Blood Count 3.55 MC/CUMM (3.8-5.5); Red Cell Distribution Width 18.8 % (9.3-17.3); White Blood Count 15.9 T/CUMM (4-12)
[2018-02-25 05:06] LABS: Calcium 7.9 MG/DL (8.5-10.1); Potassium 3.8 MMOL/L (3.5-5.1)
[2018-02-25 05:31] LABS: Hypochromasia 1+; Ovalocytes Slight; Platelet Estimate Adequate
[2018-02-25 05:32] LABS: Microcytosis Slight
[2018-02-25] MEDS: PIPERACILLIN/TAZOBACTAM 3,375 MG in SODIUM CHLORIDE 0.9% 100 ML IV SCH ×3 (05:51→21:22)
[2018-02-25] MEDS: LEVOTHYROXINE 75 MCG TABLET PO SCH (05:52)
[2018-02-25] MEDS: predniSONE 10 MG TABLET PO SCH (08:30)
[2018-02-25] MEDS: MULTIVITAMIN (CENTRUM) TABLET PO SCH (08:31)
[2018-02-25] MEDS: DOCUSATE SODIUM 100 MG CAPSULE PO SCH ×2 (08:31→21:22)
[2018-02-25] MEDS: PANTOPRAZOLE 40 MG TABLET PO SCH (08:31)
[2018-02-25] MEDS: LEVOFLOXACIN INJ 500 MG in PREMIX 1 EACH IV SCH (10:07)
[2018-02-25] MEDS: TERAZOSIN 5 MG CAPSULE PO SCH (21:21)
[2018-02-25] MEDS: GABAPENTIN 600 MG TABLET PO SCH (21:21)
[2018-02-25] MEDS: guaiFENesin 200 MG/10 ML UDCUP PO PRN (21:21)
[2018-02-25] MEDS: SIMVASTATIN 40 MG TABLET PO SCH (21:22)
[2018-02-25] MEDS: TEMAZEPAM 15 MG CAPSULE PO PRN (21:22)
[2018-02-26] MEDS: ALBUTEROL/IPRATROPIUM 3 ML NEB RESP TX SCH ×4 (00:37→19:05)
[2018-02-26] MEDS: PIPERACILLIN/TAZOBACTAM 3,375 MG in SODIUM CHLORIDE 0.9% 100 ML IV SCH ×3 (06:00→21:40)
[2018-02-26] MEDS: LEVOTHYROXINE 75 MCG TABLET PO SCH (06:43)
[2018-02-26 06:44] LABS: Basophils # 0.1 10*3/uL (0.0-0.2); Basophils % 0.7 % (0.0-0.8); Eosinophils # 0.6 10*3/uL (0.0-0.87); Eosinophils % 3.6 % (0.00-10.9); Hematocrit 37.1 VOL% (42.0-52.0); Hemoglobin 11.5 GM/DL (14.0-18.0); Immature Granulocytes % 5.6 %; Immature Granulocytes Absolute 0.95 #; Lymphocytes # 4.8 10*3/uL (1.4-4.0); Lymphocytes % 28.1 % (21.2-54.2); Mean Corpuscular Hemoglobin 29 PG (27-34); Mean Corpuscular Volume 92.1 FL (87-102); Mean Platelet Volume 9.2 FL (9.6-12.0); Monocytes # 0.8 10*3/uL (0.11-0.8); Monocytes % 4.5 % (1.7-12.7); Neutrophils # 9.7 10*3/uL (1.4-7.4); Neutrophils % 57.5 % (38.7-73.9); Platelet Count 371 T/CUMM (130-400); Red Blood Count 4.03 MC/CUMM (3.8-5.5); Red Cell Distribution Width 18.9 % (9.3-17.3); White Blood Count 16.9 T/CUMM (4-12)
[2018-02-26 07:06] LABS: Band Neutrophils 9 % (0-10); Eosinophils 1 % (0-10); Lymphocytes 31 % (20-55); Segmented Neutrophils 55 % (50-85); Total Cells Counted 100
[2018-02-26 07:07] LABS: Anisocytosis Slight; Platelet Estimate Normal; Polychromasia Slight
[2018-02-26 07:12] LABS: Calcium 8.5 MG/DL (8.5-10.1); Potassium 4.1 MMOL/L (3.5-5.1)
[2018-02-26] MEDS: DOCUSATE SODIUM 100 MG CAPSULE PO SCH ×2 (09:19→21:40)
[2018-02-26] MEDS: LEVOFLOXACIN INJ 500 MG in PREMIX 1 EACH IV SCH (09:19)
[2018-02-26] MEDS: predniSONE 10 MG TABLET PO SCH (09:19)
[2018-02-26] MEDS: MULTIVITAMIN (CENTRUM) TABLET PO SCH (09:19)
[2018-02-26] MEDS: PANTOPRAZOLE 40 MG TABLET PO SCH (09:19)
[2018-02-26] MEDS: guaiFENesin 200 MG/10 ML UDCUP PO PRN (21:40)
[2018-02-26] MEDS: TERAZOSIN 5 MG CAPSULE PO SCH (21:40)
[2018-02-26] MEDS: GABAPENTIN 600 MG TABLET PO SCH (21:40)
[2018-02-26] MEDS: TEMAZEPAM 15 MG CAPSULE PO PRN (21:40)
[2018-02-26] MEDS: SIMVASTATIN 40 MG TABLET PO SCH (21:40)
[2018-02-27] MEDS: ALBUTEROL/IPRATROPIUM 3 ML NEB RESP TX SCH ×4 (00:07→19:35)
[2018-02-27 05:56] LABS: Basophils # 0.1 10*3/uL (0.0-0.2); Basophils % 0.6 % (0.0-0.8); Eosinophils # 0.5 10*3/uL (0.0-0.87); Eosinophils % 3.3 % (0.00-10.9); Hematocrit 34.7 VOL% (42.0-52.0); Hemoglobin 11.2 GM/DL (14.0-18.0); Immature Granulocytes % 3.8 %; Immature Granulocytes Absolute 0.62 #; Lymphocytes # 3.6 10*3/uL (1.4-4.0); Lymphocytes % 22.3 % (21.2-54.2); Mean Corpuscular HGB Conc 32.3 GM/DL (32-36); Mean Corpuscular Hemoglobin 29 PG (27-34); Mean Corpuscular Volume 88.7 FL (87-102); Mean Platelet Volume 9.4 FL (9.6-12.0); Monocytes # 0.7 10*3/uL (0.11-0.8); Monocytes % 4.4 % (1.7-12.7); Neutrophils # 10.6 10*3/uL (1.4-7.4); Neutrophils % 65.6 % (38.7-73.9); Platelet Count 324 T/CUMM (130-400); Red Blood Count 3.91 MC/CUMM (3.8-5.5); Red Cell Distribution Width 18.8 % (9.3-17.3); White Blood Count 16.1 T/CUMM (4-12)
[2018-02-27 06:15] LABS: Anisocytosis 1+; Hypochromasia 1+; Microcytosis 1+; Ovalocytes Slight; Platelet Estimate Normal
[2018-02-27] MEDS: PIPERACILLIN/TAZOBACTAM 3,375 MG in SODIUM CHLORIDE 0.9% 100 ML IV SCH ×3 (06:15→20:46)
[2018-02-27] MEDS: LEVOTHYROXINE 75 MCG TABLET PO SCH (06:15)
[2018-02-27 06:27] LABS: Calcium 8.7 MG/DL (8.5-10.1); Osmolality,Calculated 285.8 MOS/KG (273-304); Potassium 3.9 MMOL/L (3.5-5.1)
[2018-02-27] MEDS: DOCUSATE SODIUM 100 MG CAPSULE PO SCH ×2 (09:06→20:47)
[2018-02-27] MEDS: MULTIVITAMIN (CENTRUM) TABLET PO SCH (09:06)
[2018-02-27] MEDS: predniSONE 10 MG TABLET PO SCH (09:06)
[2018-02-27] MEDS: PANTOPRAZOLE 40 MG TABLET PO SCH (09:06)
[2018-02-27] MEDS: LEVOFLOXACIN INJ 500 MG in PREMIX 1 EACH IV SCH (10:04)
[2018-02-27] MEDS: TEMAZEPAM 15 MG CAPSULE PO PRN (20:15)
[2018-02-27] MEDS: TERAZOSIN 5 MG CAPSULE PO SCH (20:46)
[2018-02-27] MEDS: GABAPENTIN 600 MG TABLET PO SCH (20:47)
[2018-02-27] MEDS: SIMVASTATIN 40 MG TABLET PO SCH (20:47)
[2018-02-28] MEDS: ALBUTEROL/IPRATROPIUM 3 ML NEB RESP TX SCH ×4 (00:22→19:41)
[2018-02-28 03:35] LABS: Basophils # 0.1 10*3/uL (0.0-0.2); Basophils % 0.6 % (0.0-0.8); Eosinophils # 0.6 10*3/uL (0.0-0.87); Eosinophils % 4.1 % (0.00-10.9); Hematocrit 33.7 VOL% (42.0-52.0); Hemoglobin 11.2 GM/DL (14.0-18.0); Immature Granulocytes % 3.9 %; Immature Granulocytes Absolute 0.56 #; Lymphocytes # 3.3 10*3/uL (1.4-4.0); Mean Corpuscular HGB Conc 33.2 GM/DL (32-36); Mean Corpuscular Hemoglobin 29 PG (27-34); Mean Corpuscular Volume 87.8 FL (87-102); Mean Platelet Volume 9.3 FL (9.6-12.0); Monocytes # 0.7 10*3/uL (0.11-0.8); Monocytes % 5.1 % (1.7-12.7); Neutrophils % 63.3 % (38.7-73.9); Platelet Count 283 T/CUMM (130-400); Red Blood Count 3.84 MC/CUMM (3.8-5.5); Red Cell Distribution Width 18.6 % (9.3-17.3); White Blood Count 14.3 T/CUMM (4-12)
[2018-02-28 03:58] LABS: Band Neutrophils 14 % (0-10); Eosinophils 1 % (0-10); Lymphocytes 20 % (20-55); Myelocytes 3 %; Nucleated Red Blood Cells 18 (0-5); Segmented Neutrophils 58 % (50-85); Total Cells Counted 100
[2018-02-28 03:59] LABS: Anisocytosis 1+
[2018-02-28 04:00] LABS: Hypochromasia Slight; Platelet Estimate Adequate; Target Cells Slight
[2018-02-28] MEDS: PIPERACILLIN/TAZOBACTAM 3,375 MG in SODIUM CHLORIDE 0.9% 100 ML IV SCH ×3 (05:34→23:26)
[2018-02-28] MEDS: LEVOTHYROXINE 75 MCG TABLET PO SCH (05:35)
[2018-02-28] MEDS ORDERED: TEMAZEPAM 15 MG CAPSULE PO PRN (09:22)
[2018-02-28] MEDS: DOCUSATE SODIUM 100 MG CAPSULE PO SCH ×2 (09:56→20:33)
[2018-02-28] MEDS: MULTIVITAMIN (CENTRUM) TABLET PO SCH (09:56)
[2018-02-28] MEDS: LEVOFLOXACIN INJ 500 MG in PREMIX 1 EACH IV SCH (09:57)
[2018-02-28] MEDS: PANTOPRAZOLE 40 MG TABLET PO SCH (09:57)
[2018-02-28] MEDS: predniSONE 10 MG TABLET PO SCH (10:00)
[2018-02-28] MEDS: GABAPENTIN 600 MG TABLET PO SCH (20:33)
[2018-02-28] MEDS: TERAZOSIN 5 MG CAPSULE PO SCH (20:33)
[2018-02-28] MEDS: SIMVASTATIN 40 MG TABLET PO SCH (20:33)
[2018-02-28] MEDS: guaiFENesin 200 MG/10 ML UDCUP PO PRN (23:18)
[2018-03-01] MEDS: ALBUTEROL/IPRATROPIUM 3 ML NEB RESP TX SCH ×2 (02:26→07:05)
[2018-03-01] MEDS: LEVOTHYROXINE 75 MCG TABLET PO SCH (07:33)
[2018-03-01] MEDS: MULTIVITAMIN (CENTRUM) TABLET PO SCH (09:13)
[2018-03-01] MEDS: PANTOPRAZOLE 40 MG TABLET PO SCH (09:13)
[2018-03-01] MEDS: DOCUSATE SODIUM 100 MG CAPSULE PO SCH (09:13)
[2018-03-01] MEDS: predniSONE 10 MG TABLET PO SCH (09:13)
[2018-03-01] MEDS: LEVOFLOXACIN INJ 500 MG in PREMIX 1 EACH IV SCH (09:15)
[2018-03-01 11:57] VITALS: BP 130/59
[2018-03-01] MEDS: PIPERACILLIN/TAZOBACTAM 3,375 MG in SODIUM CHLORIDE 0.9% 100 ML IV SCH (12:08)
[2018-03-01] MEDS ORDERED: DOXYCYCLINE HYCLATE 100 MG CAPSULE PO SCH (21:00)
== END 2018-03-01 12:35 | disposition home or self-care (01) | DRG 178 ==
LOC: N.ED 13:05 → N.EDINP 13:05 → N.2E 16:48
PROVIDERS: ADMIT Family Medicine; ATTEND Family Medicine

== ENCOUNTER 2018-10-19 14:40 | Inpatient (IN) ==
[2018-10-19 16:30] LABS: Basophils # 0.1 10*3/uL (0.0-0.2); Basophils % 0.8 % (0.0-0.8); Eosinophils # 0.2 10*3/uL (0.0-0.87); Eosinophils % 1.1 % (0.00-10.9); Hematocrit 41.9 VOL% (42.0-52.0); Hemoglobin 13.1 GM/DL (14.0-18.0); Immature Granulocytes % 1.8 %; Immature Granulocytes Absolute 0.24 #; Lymphocytes # 2.8 10*3/uL (1.4-4.0); Lymphocytes % 21.2 % (21.2-54.2); Mean Corpuscular HGB Conc 31.3 GM/DL (32-36); Mean Corpuscular Volume 93.5 FL (87-102); Mean Platelet Volume 10.4 FL (9.6-12.0); Monocytes % 7.5 % (1.7-12.7); Neutrophils % 67.6 % (38.7-73.9); Platelet Count 515 T/CUMM (130-400); Red Blood Count 4.48 MC/CUMM (3.8-5.5); Red Cell Distribution Width 14.9 % (9.3-17.3); White Blood Count 13.1 T/CUMM (4-12)
[2018-10-19 16:40] LABS: INR 1.1
[2018-10-19 16:49] LABS: Bilirubin,Total 0.5 MG/DL (0.2-1.0); Calcium 9.1 MG/DL (8.5-10.1); Osmolality,Calculated 282.1 MOS/KG (273-304); Total Protein 8.7 G/DL (6.4-8.3)
[2018-10-19] MEDS ORDERED: ONDANSETRON 4 MG/2 ML VIAL IV PRN (17:05)
[2018-10-19] MEDS ORDERED: LEVOFLOXACIN INJ 500 MG in PREMIX 1 EACH IV STA (17:05)
[2018-10-19] MEDS ORDERED: ACETAMINOPHEN 325 MG TABLET PO PRN (17:05)
[2018-10-19] MEDS: DOCUSATE SODIUM 100 MG CAPSULE PO SCH (21:16)
[2018-10-19] MEDS: SIMVASTATIN 40 MG TABLET PO SCH (21:16)
[2018-10-19] MEDS: TERAZOSIN 5 MG CAPSULE PO SCH (21:16)
[2018-10-19] MEDS: ZALEPLON 5 MG CAPSULE PO PRN (21:16)
[2018-10-20] MEDS: LEVOTHYROXINE 75 MCG TABLET PO SCH (06:06)
[2018-10-20] MEDS ORDERED: NON-FORMULARY MEDICATION (Zolpidem Tartrate [Zolpidem Tartrate] 10 MG) PO PRN (07:55)
[2018-10-20] MEDS: POLYETHYLENE GLYCOL POWDER 17 GM PACK PO SCH (09:15)
[2018-10-20] MEDS: MULTIVITAMIN (OCUVITE) TABLET PO SCH (09:15)
[2018-10-20] MEDS: PANTOPRAZOLE 40 MG TABLET PO SCH (09:15)
[2018-10-20] MEDS: DOCUSATE SODIUM 100 MG CAPSULE PO SCH ×2 (09:15→20:21)
[2018-10-20] MEDS: ALBUTEROL/IPRATROPIUM 3 ML NEB RESP TX SCH ×4 (10:45→22:45)
[2018-10-20] MEDS ORDERED: ALBUTEROL/IPRATROPIUM 3 ML NEB RESP TX PRN (19:00)
[2018-10-20] MEDS: TERAZOSIN 5 MG CAPSULE PO SCH (20:22)
[2018-10-20] MEDS: SIMVASTATIN 40 MG TABLET PO SCH (20:22)
[2018-10-20] MEDS: BENZONATATE 100 MG CAPSULE PO PRN (20:22)
[2018-10-20] MEDS: ANORO ELLIPTA INH SCH (20:23)
[2018-10-20] MEDS ORDERED: TERAZOSIN 5 MG CAPSULE PO SCH (21:00)
[2018-10-20] MEDS: ZALEPLON 5 MG CAPSULE PO PRN (22:26)
[2018-10-21] MEDS: ALBUTEROL/IPRATROPIUM 3 ML NEB RESP TX SCH ×6 (03:04→22:44)
[2018-10-21 05:00] LABS: Basophils # 0.1 10*3/uL (0.0-0.2); Basophils % 0.6 % (0.0-0.8); Eosinophils # 0.2 10*3/uL (0.0-0.87); Eosinophils % 1.1 % (0.00-10.9); Hematocrit 34.7 VOL% (42.0-52.0); Hemoglobin 11.1 GM/DL (14.0-18.0); Immature Granulocytes % 2.6 %; Immature Granulocytes Absolute 0.39 #; Lymphocytes # 3.6 10*3/uL (1.4-4.0); Lymphocytes % 23.5 % (21.2-54.2); Mean Corpuscular Volume 92.5 FL (87-102); Mean Platelet Volume 9.9 FL (9.6-12.0); Monocytes % 7.8 % (1.7-12.7); Neutrophils % 64.4 % (38.7-73.9); Platelet Count 443 T/CUMM (130-400); Red Blood Count 3.75 MC/CUMM (3.8-5.5); Red Cell Distribution Width 15.1 % (9.3-17.3); White Blood Count 15.2 T/CUMM (4-12)
[2018-10-21 05:07] LABS: INR 1.1; Partial Thromboplastin Time 27.8 SECS (0-40)
[2018-10-21 05:20] LABS: Albumin 2.3 G/DL (3.4-5.0); Bilirubin,Total 0.7 MG/DL (0.2-1.0); Calcium 8.3 MG/DL (8.5-10.1); Free T4 (Free Thyroxine) 1.42 NG/DL (0.76-1.46); Osmolality,Calculated 282.1 MOS/KG (273-304); Thyroid Stimulating Hormone 2.89 uIU/ml (0.358-3.74); Total Protein 6.9 G/DL (6.4-8.3); VLDL CHOLESTEROL 9.2 MG/DL
[2018-10-21] MEDS: LEVOTHYROXINE 75 MCG TABLET PO SCH (07:05)
[2018-10-21] MEDS ORDERED: BENZONATATE 100 MG CAPSULE PO ONE (08:00)
[2018-10-21] MEDS ORDERED: MEPERIDINE 50 MG/1 ML VIAL IM ONE (08:00)
[2018-10-21] MEDS ORDERED: diphenhydrAMINE 50 MG/1 ML VIAL IM ONE (08:00)
[2018-10-21] MEDS ORDERED: MIDAZOLAM 2 MG/2 ML VIAL ONE (08:18)
[2018-10-21] MEDS ORDERED: LIDOCAINE 2% VISCOUS 100 ML BOTTLE SWISH/SPIT ONE (08:30)
[2018-10-21] MEDS ORDERED: LIDOCAINE 1% 20 ML VIAL MISC INJ ONE (08:30)
[2018-10-21] MEDS ORDERED: LIDOCAINE 2% 20 ML VIAL RESP TX ONE (08:30)
[2018-10-21] MEDS ORDERED: MIDAZOLAM 2 MG/2 ML VIAL IV ONE (08:50)
[2018-10-21] MEDS: LEVOFLOXACIN INJ 750 MG in PREMIX 1 EACH IV SCH (10:21)
[2018-10-21] MEDS: DOCUSATE SODIUM 100 MG CAPSULE PO SCH ×2 (11:07→21:12)
[2018-10-21] MEDS: PANTOPRAZOLE 40 MG TABLET PO SCH (11:07)
[2018-10-21] MEDS: POLYETHYLENE GLYCOL POWDER 17 GM PACK PO SCH (11:07)
[2018-10-21] MEDS: MULTIVITAMIN (OCUVITE) TABLET PO SCH (11:07)
[2018-10-21] MEDS: ANORO ELLIPTA INH SCH (11:09)
[2018-10-21] MEDS: TERAZOSIN 5 MG CAPSULE PO SCH (21:12)
[2018-10-21] MEDS: SIMVASTATIN 40 MG TABLET PO SCH (21:12)
[2018-10-21] MEDS: BENZONATATE 100 MG CAPSULE PO PRN (21:12)
[2018-10-21 22:10] LABS: Apearance,Urine CLEAR (Clear); Bacteria,Urine Occasional /HPF (Few); Bilirubin,Urine Negative (Negative); Blood, Urine Negative (Negative); Glucose,Urine (UA) Negative (Negative); Ketones,Urine Negative (Negative); Mucus,Urine Occasional /LPF (Occasional); Nitrite,Urine Negative (Negative); Protein,Urine Negative; RBC,Urine 1 /HPF (0-4); Squamous Epithelial Cell,Urine Occasional /HPF (0-10); Urine Color Yellow (Yellow); Urine Urobilinogen < 2.0 EU/DL (0.2-1.0); WBC,Urine 1 /HPF (0-6)
[2018-10-21] MEDS: ZALEPLON 5 MG CAPSULE PO PRN (22:19)
[2018-10-22] MEDS: ALBUTEROL/IPRATROPIUM 3 ML NEB RESP TX SCH ×6 (02:47→22:40)
[2018-10-22] MEDS: LEVOTHYROXINE 75 MCG TABLET PO SCH (06:11)
[2018-10-22 06:30] LABS: Basophils # 0.1 10*3/uL (0.0-0.2); Basophils % 0.6 % (0.0-0.8); Eosinophils # 0.2 10*3/uL (0.0-0.87); Eosinophils % 1.3 % (0.00-10.9); Immature Granulocytes % 2.8 %; Immature Granulocytes Absolute 0.44 #; Lymphocytes # 3.2 10*3/uL (1.4-4.0); Lymphocytes % 20.8 % (21.2-54.2); Mean Corpuscular HGB Conc 31.4 GM/DL (32-36); Mean Corpuscular Volume 93.8 FL (87-102); Mean Platelet Volume 10.4 FL (9.6-12.0); Monocytes % 9.4 % (1.7-12.7); Neutrophils % 65.1 % (38.7-73.9); Platelet Count 418 T/CUMM (130-400); Red Blood Count 3.73 MC/CUMM (3.8-5.5); Red Cell Distribution Width 15.1 % (9.3-17.3); White Blood Count 15.6 T/CUMM (4-12)
[2018-10-22 06:51] LABS: Calcium 8.5 MG/DL (8.5-10.1); Osmolality,Calculated 281.3 MOS/KG (273-304)
[2018-10-22] MEDS: PANTOPRAZOLE 40 MG TABLET PO SCH (08:27)
[2018-10-22] MEDS: MULTIVITAMIN (OCUVITE) TABLET PO SCH (08:27)
[2018-10-22] MEDS: BENZONATATE 100 MG CAPSULE PO PRN ×2 (08:28→20:10)
[2018-10-22] MEDS: DOCUSATE SODIUM 100 MG CAPSULE PO SCH ×2 (08:28→20:05)
[2018-10-22] MEDS: POLYETHYLENE GLYCOL POWDER 17 GM PACK PO SCH (08:29)
[2018-10-22] MEDS: LEVOFLOXACIN INJ 750 MG in PREMIX 1 EACH IV SCH (10:32)
[2018-10-22] MEDS: ANORO ELLIPTA INH SCH (11:43)
[2018-10-22] MEDS: SIMVASTATIN 40 MG TABLET PO SCH (20:05)
[2018-10-22] MEDS: TERAZOSIN 5 MG CAPSULE PO SCH (20:05)
[2018-10-22] MEDS: ZALEPLON 5 MG CAPSULE PO PRN ×2 (22:04→22:05)
[2018-10-23] MEDS: ALBUTEROL/IPRATROPIUM 3 ML NEB RESP TX SCH ×5 (03:15→20:25)
[2018-10-23 05:12] LABS: Basophils # 0.1 10*3/uL (0.0-0.2); Basophils % 0.6 % (0.0-0.8); Eosinophils # 0.2 10*3/uL (0.0-0.87); Eosinophils % 1.5 % (0.00-10.9); Hematocrit 34.6 VOL% (42.0-52.0); Hemoglobin 11.2 GM/DL (14.0-18.0); Immature Granulocytes % 2.7 %; Immature Granulocytes Absolute 0.43 #; Lymphocytes # 2.9 10*3/uL (1.4-4.0); Lymphocytes % 18.6 % (21.2-54.2); Mean Corpuscular HGB Conc 32.4 GM/DL (32-36); Mean Corpuscular Volume 92.3 FL (87-102); Mean Platelet Volume 10.1 FL (9.6-12.0); Monocytes % 9.4 % (1.7-12.7); Neutrophils % 67.2 % (38.7-73.9); Platelet Count 453 T/CUMM (130-400); Red Blood Count 3.75 MC/CUMM (3.8-5.5); Red Cell Distribution Width 14.9 % (9.3-17.3); White Blood Count 15.8 T/CUMM (4-12)
[2018-10-23 05:36] LABS: Calcium 8.5 MG/DL (8.5-10.1); Osmolality,Calculated 282.1 MOS/KG (273-304)
[2018-10-23] MEDS: LEVOTHYROXINE 75 MCG TABLET PO SCH (06:06)
[2018-10-23] MEDS: DOCUSATE SODIUM 100 MG CAPSULE PO SCH ×2 (08:35→20:38)
[2018-10-23] MEDS: BENZONATATE 100 MG CAPSULE PO PRN ×2 (08:36→20:38)
[2018-10-23] MEDS: MULTIVITAMIN (OCUVITE) TABLET PO SCH (08:36)
[2018-10-23] MEDS: PANTOPRAZOLE 40 MG TABLET PO SCH (08:37)
[2018-10-23] MEDS: POLYETHYLENE GLYCOL POWDER 17 GM PACK PO SCH (08:37)
[2018-10-23] MEDS: LEVOFLOXACIN INJ 750 MG in PREMIX 1 EACH IV SCH (08:38)
[2018-10-23] MEDS: ANORO ELLIPTA INH SCH (12:18)
[2018-10-23] MEDS: ZALEPLON 5 MG CAPSULE PO PRN (20:38)
[2018-10-23] MEDS: TERAZOSIN 5 MG CAPSULE PO SCH (20:38)
[2018-10-23] MEDS: SIMVASTATIN 40 MG TABLET PO SCH (20:38)
[2018-10-24] MEDS: ALBUTEROL/IPRATROPIUM 3 ML NEB RESP TX SCH ×7 (00:30→23:23)
[2018-10-24 04:58] LABS: Basophils # 0.1 10*3/uL (0.0-0.2); Basophils % 0.5 % (0.0-0.8); Eosinophils # 0.2 10*3/uL (0.0-0.87); Eosinophils % 1.3 % (0.00-10.9); Hematocrit 36.1 VOL% (42.0-52.0); Hemoglobin 11.6 GM/DL (14.0-18.0); Immature Granulocytes % 1.7 %; Immature Granulocytes Absolute 0.32 #; Lymphocytes # 3.2 10*3/uL (1.4-4.0); Lymphocytes % 17.3 % (21.2-54.2); Mean Corpuscular HGB Conc 32.1 GM/DL (32-36); Mean Corpuscular Volume 92.3 FL (87-102); Mean Platelet Volume 10.1 FL (9.6-12.0); Monocytes % 8.3 % (1.7-12.7); Neutrophils % 70.9 % (38.7-73.9); Platelet Count 482 T/CUMM (130-400); Red Blood Count 3.91 MC/CUMM (3.8-5.5); Red Cell Distribution Width 14.8 % (9.3-17.3); White Blood Count 18.4 T/CUMM (4-12)
[2018-10-24 05:37] LABS: Calcium 8.7 MG/DL (8.5-10.1); Osmolality,Calculated 276.5 MOS/KG (273-304)
[2018-10-24] MEDS: LEVOTHYROXINE 75 MCG TABLET PO SCH (06:45)
[2018-10-24] MEDS: MULTIVITAMIN (OCUVITE) TABLET PO SCH (09:03)
[2018-10-24] MEDS: DOCUSATE SODIUM 100 MG CAPSULE PO SCH ×2 (09:03→20:58)
[2018-10-24] MEDS: PANTOPRAZOLE 40 MG TABLET PO SCH (09:03)
[2018-10-24] MEDS: LEVOFLOXACIN INJ 750 MG in PREMIX 1 EACH IV SCH (09:06)
[2018-10-24] MEDS: POLYETHYLENE GLYCOL POWDER 17 GM PACK PO SCH (10:00)
[2018-10-24] MEDS: ANORO ELLIPTA INH SCH (11:59)
[2018-10-24] MEDS: BENZONATATE 100 MG CAPSULE PO PRN (20:58)
[2018-10-24] MEDS: TERAZOSIN 5 MG CAPSULE PO SCH (20:58)
[2018-10-24] MEDS: SIMVASTATIN 40 MG TABLET PO SCH (20:58)
[2018-10-24] MEDS: ZALEPLON 5 MG CAPSULE PO PRN (20:58)
[2018-10-25] MEDS: ALBUTEROL/IPRATROPIUM 3 ML NEB RESP TX SCH ×4 (01:16→14:20)
[2018-10-25] MEDS: BENZONATATE 100 MG CAPSULE PO PRN ×2 (04:20→08:15)
[2018-10-25 05:57] LABS: Basophils # 0.1 10*3/uL (0.0-0.2); Basophils % 0.5 % (0.0-0.8); Eosinophils # 0.2 10*3/uL (0.0-0.87); Eosinophils % 1.1 % (0.00-10.9); Hematocrit 35.8 VOL% (42.0-52.0); Hemoglobin 11.7 GM/DL (14.0-18.0); Immature Granulocytes % 1.5 %; Immature Granulocytes Absolute 0.27 #; Lymphocytes # 2.2 10*3/uL (1.4-4.0); Lymphocytes % 12.7 % (21.2-54.2); Mean Corpuscular HGB Conc 32.7 GM/DL (32-36); Mean Corpuscular Volume 92.5 FL (87-102); Mean Platelet Volume 10.1 FL (9.6-12.0); Monocytes % 8.3 % (1.7-12.7); Neutrophils % 75.9 % (38.7-73.9); Platelet Count 440 T/CUMM (130-400); Red Blood Count 3.87 MC/CUMM (3.8-5.5); Red Cell Distribution Width 14.9 % (9.3-17.3); White Blood Count 17.5 T/CUMM (4-12)
[2018-10-25 06:24] LABS: Calcium 8.6 MG/DL (8.5-10.1); Osmolality,Calculated 279.4 MOS/KG (273-304)
[2018-10-25] MEDS: LEVOTHYROXINE 75 MCG TABLET PO SCH (06:55)
[2018-10-25] MEDS: PANTOPRAZOLE 40 MG TABLET PO SCH (08:15)
[2018-10-25] MEDS: POLYETHYLENE GLYCOL POWDER 17 GM PACK PO SCH (08:15)
[2018-10-25] MEDS: LEVOFLOXACIN INJ 750 MG in PREMIX 1 EACH IV SCH (08:16)
[2018-10-25] MEDS: MULTIVITAMIN (OCUVITE) TABLET PO SCH (08:16)
[2018-10-25] MEDS: DOCUSATE SODIUM 100 MG CAPSULE PO SCH (08:16)
[2018-10-25 11:34] VITALS: BP 138/64
[2018-10-25] MEDS: ANORO ELLIPTA INH SCH (15:08)
[2018-10-26] MEDS ORDERED: LEVOFLOXACIN 750 MG TABLET PO SCH (09:00)
== END 2018-10-25 15:08 | disposition home or self-care (01) | DRG 177 ==
LOC: N.EDINP 14:40 → N.ED 14:40 → N.2E 18:09
PROVIDERS: ADMIT Family Medicine; ATTEND Family Medicine

== ENCOUNTER 2019-04-14 13:26 | Inpatient (IN) ==
[2019-04-14 15:36] LABS: Basophils # 0.1 10*3/uL (0.0-0.2); Basophils % 0.8 % (0.0-0.8); Eosinophils # 0.4 10*3/uL (0.0-0.87); Eosinophils % 2.9 % (0.00-10.9); Hematocrit 44.8 VOL% (42.0-52.0); Hemoglobin 14.7 GM/DL (14.0-18.0); Immature Granulocytes % 1.4 %; Immature Granulocytes Absolute 0.18 #; Lymphocytes # 2.5 10*3/uL (1.4-4.0); Mean Corpuscular HGB Conc 32.8 GM/DL (32-36); Mean Corpuscular Volume 92.6 FL (87-102); Mean Platelet Volume 10.1 FL (9.6-12.0); Monocytes % 11.8 % (1.7-12.7); Neutrophils % 63.1 % (38.7-73.9); Platelet Count 354 T/CUMM (130-400); Red Blood Count 4.84 MC/CUMM (3.8-5.5); Red Cell Distribution Width 13.6 % (9.3-17.3); White Blood Count 12.5 T/CUMM (4-12)
[2019-04-14 15:46] LABS: INR 1.1; Partial Thromboplastin Time 27.8 SECS (20.8-36.0)
[2019-04-14] MEDS ORDERED: ALBUTEROL 2.5 MG/3 ML NEB RESP TX STA (15:52)
[2019-04-14 16:17] LABS: Albumin 2.7 G/DL (3.4-5.0); Bilirubin,Total 0.5 MG/DL (0.2-1.0); Calcium 9.1 MG/DL (8.5-10.1); Total Protein 7.9 G/DL (6.4-8.3)
[2019-04-14] MEDS ORDERED: NON-FORMULARY MEDICATION (Albuterol Sulfate [Proair Hfa] 2 PUFF) INH SCH (19:37)
[2019-04-14] MEDS ORDERED: ACETAMINOPHEN 325 MG TABLET PO PRN (19:37)
[2019-04-14] MEDS ORDERED: ONDANSETRON 4 MG/2 ML VIAL IV PRN (19:37)
[2019-04-14] MEDS ORDERED: MORPHINE 4 MG/1 ML VIAL IV PRN (19:37)
[2019-04-14] MEDS: ALBUTEROL/IPRATROPIUM 3 ML NEB RESP TX SCH (20:19)
[2019-04-14] MEDS: SIMVASTATIN 40 MG TABLET PO SCH (20:29)
[2019-04-14] MEDS: ZALEPLON 5 MG CAPSULE PO SCH (20:29)
[2019-04-14] MEDS: FAMOTIDINE 20 MG TABLET PO SCH (20:29)
[2019-04-14] MEDS: cefTRIAXone 1,000 MG in SYRINGE 1 EACH IV SCH (20:29)
[2019-04-14] MEDS: FINASTERIDE 5 MG TABLET PO SCH (20:30)
[2019-04-14] MEDS: DOCUSATE SODIUM 100 MG CAPSULE PO SCH (20:30)
[2019-04-14] MEDS: SODIUM CHLORIDE 0.9% 1,000 ML IV SCH (20:30)
[2019-04-14 20:58] LABS: Basophils # 0.1 10*3/uL (0.0-0.2); Basophils % 0.9 % (0.0-0.8); Eosinophils # 0.3 10*3/uL (0.0-0.87); Eosinophils % 2.3 % (0.00-10.9); Hematocrit 45.9 VOL% (42.0-52.0); Hemoglobin 14.9 GM/DL (14.0-18.0); Immature Granulocytes % 1.4 %; Immature Granulocytes Absolute 0.18 #; Lymphocytes # 3.7 10*3/uL (1.4-4.0); Lymphocytes % 28.8 % (21.2-54.2); Mean Corpuscular HGB Conc 32.5 GM/DL (32-36); Mean Corpuscular Volume 93.9 FL (87-102); Mean Platelet Volume 10.6 FL (9.6-12.0); Monocytes % 10.8 % (1.7-12.7); Neutrophils % 55.8 % (38.7-73.9); Platelet Count 367 T/CUMM (130-400); Red Blood Count 4.89 MC/CUMM (3.8-5.5); Red Cell Distribution Width 13.6 % (9.3-17.3); White Blood Count 12.7 T/CUMM (4-12)
[2019-04-14 21:37] LABS: Eosinophils 3 % (0-10); Lymphocytes 34 % (20-55); Platelet Estimate Normal; Segmented Neutrophils 55 % (50-85); Total Cells Counted 100
[2019-04-14] MEDS ORDERED: ALBUTEROL/IPRATROPIUM 3 ML NEB RESP TX SCH (23:00)
[2019-04-15] MEDS: ALBUTEROL/IPRATROPIUM 3 ML NEB RESP TX SCH ×7 (00:09→23:56)
[2019-04-15] MEDS: LEVOTHYROXINE 75 MCG TABLET PO SCH (06:09)
[2019-04-15 07:13] LABS: Albumin 2.3 G/DL (3.4-5.0); Bilirubin,Total 0.6 MG/DL (0.2-1.0); Calcium 8.4 MG/DL (8.5-10.1); Risk Ratio 4.05; Total Protein 6.8 G/DL (6.4-8.3); VLDL CHOLESTEROL 14.2 MG/DL
[2019-04-15] MEDS ORDERED: INFLUENZA VIRUS VACCINE 0.5 ML SYRINGE IM ONE (09:00)
[2019-04-15] MEDS ORDERED: PANTOPRAZOLE 40 MG VIAL IV SCH (09:00)
[2019-04-15] MEDS: SODIUM CHLORIDE 0.9% 1,000 ML IV SCH ×2 (09:10→23:15)
[2019-04-15] MEDS: MULTIVITAMIN (CENTRUM) TABLET PO SCH (09:12)
[2019-04-15] MEDS: DOCUSATE SODIUM 100 MG CAPSULE PO SCH ×2 (09:12→20:52)
[2019-04-15] MEDS: MELOXICAM 7.5 MG TABLET PO SCH (09:12)
[2019-04-15] MEDS: OMEGA 3 ACID ETHYL ESTERS 1 GM CAPSULE PO SCH (09:12)
[2019-04-15] MEDS: FAMOTIDINE 20 MG TABLET PO SCH ×2 (09:12→20:52)
[2019-04-15] MEDS: methylPREDNISolone SOD SUC 40 MG/1 ML VIAL IV SCH ×2 (10:10→20:53)
[2019-04-15] MEDS: LEVOFLOXACIN 500 MG TABLET PO SCH (10:10)
[2019-04-15] MEDS: FLUTICASONE 50 MCG NASAL SPRAY 16 GM BOTTLE BOTH NARES SCH (10:10)
[2019-04-15] MEDS: PANTOPRAZOLE 40 MG TABLET PO SCH (10:11)
[2019-04-15] MEDS: TAMSULOSIN 0.4 MG CAPSULE PO SCH (10:11)
[2019-04-15 10:27] LABS: Apearance,Urine CLEAR (Clear); Bilirubin,Urine Negative (Negative); Blood, Urine Negative (Negative); Glucose,Urine (UA) Negative (Negative); Ketones,Urine 5 mg/dL (Negative); Nitrite,Urine Negative (Negative); Protein,Urine Negative; Urine Color Yellow (Yellow); Urine Specific Gravity 1.019 (1.001-1.035); Urine Urobilinogen < 2.0 EU/DL (0.2-1.0); WBC,Urine <1 /HPF (0-6)
[2019-04-15] MEDS: NON-FORMULARY MEDICATION (Umeclidinium-Vilanterol [Anoro Ellipta] 1 PUFF) INH SCH (13:22)
[2019-04-15] MEDS: FINASTERIDE 5 MG TABLET PO SCH (20:52)
[2019-04-15] MEDS: SIMVASTATIN 40 MG TABLET PO SCH (20:52)
[2019-04-15] MEDS: ZALEPLON 5 MG CAPSULE PO SCH (20:53)
[2019-04-15] MEDS: cefTRIAXone 1,000 MG in SYRINGE 1 EACH IV SCH (20:54)
[2019-04-16] MEDS: ALBUTEROL/IPRATROPIUM 3 ML NEB RESP TX SCH ×6 (02:44→23:20)
[2019-04-16 05:26] LABS: Basophils % 0.3 % (0.0-0.8); Hematocrit 39.5 VOL% (42.0-52.0); Hemoglobin 12.7 GM/DL (14.0-18.0); Immature Granulocytes Absolute 0.23 #; Lymphocytes # 1.1 10*3/uL (1.4-4.0); Lymphocytes % 9.4 % (21.2-54.2); Mean Corpuscular HGB Conc 32.2 GM/DL (32-36); Mean Corpuscular Volume 93.8 FL (87-102); Mean Platelet Volume 10.1 FL (9.6-12.0); Neutrophils % 86.3 % (38.7-73.9); Platelet Count 364 T/CUMM (130-400); Red Blood Count 4.21 MC/CUMM (3.8-5.5); Red Cell Distribution Width 13.5 % (9.3-17.3); White Blood Count 11.7 T/CUMM (4-12)
[2019-04-16 05:57] LABS: Alanine Aminotransferase 41 U/L (16-61); Albumin 2.4 G/DL (3.4-5.0); Alkaline Phosphatase 82 U/L (45-117); Aspartate Amino Transferase 25 U/L (0-37); Bilirubin,Total < 0.39 MG/DL (0.2-1.0); Blood Urea Nitrogen 16 MG/DL (7-18); Calcium 9.2 MG/DL (8.5-10.1); Estimated Glom Filtration Rate 83 ML/MIN; Glucose 185 MG/DL (74-106); Osmolality,Calculated 295.6 MOS/KG (273-304)
[2019-04-16] MEDS: LEVOTHYROXINE 75 MCG TABLET PO SCH (06:18)
[2019-04-16] MEDS: methylPREDNISolone SOD SUC 40 MG/1 ML VIAL IV SCH ×2 (09:38→21:35)
[2019-04-16] MEDS: OMEGA 3 ACID ETHYL ESTERS 1 GM CAPSULE PO SCH (09:38)
[2019-04-16] MEDS: LEVOFLOXACIN 500 MG TABLET PO SCH (09:39)
[2019-04-16] MEDS: DOCUSATE SODIUM 100 MG CAPSULE PO SCH ×2 (09:39→21:31)
[2019-04-16] MEDS: MELOXICAM 7.5 MG TABLET PO SCH (09:39)
[2019-04-16] MEDS: FAMOTIDINE 20 MG TABLET PO SCH ×2 (09:39→21:32)
[2019-04-16] MEDS: TAMSULOSIN 0.4 MG CAPSULE PO SCH (09:39)
[2019-04-16] MEDS: PANTOPRAZOLE 40 MG TABLET PO SCH (09:39)
[2019-04-16] MEDS: MULTIVITAMIN (CENTRUM) TABLET PO SCH (09:39)
[2019-04-16] MEDS: FLUTICASONE 50 MCG NASAL SPRAY 16 GM BOTTLE BOTH NARES SCH (09:44)
[2019-04-16] MEDS: NON-FORMULARY MEDICATION (Umeclidinium-Vilanterol [Anoro Ellipta] 1 PUFF) INH SCH (12:20)
[2019-04-16] MEDS: FINASTERIDE 5 MG TABLET PO SCH (21:33)
[2019-04-16] MEDS: cefTRIAXone 1,000 MG in SYRINGE 1 EACH IV SCH (21:33)
[2019-04-16] MEDS: ZALEPLON 5 MG CAPSULE PO SCH (21:35)
[2019-04-16] MEDS: SIMVASTATIN 40 MG TABLET PO SCH (21:35)
[2019-04-17] MEDS: ALBUTEROL/IPRATROPIUM 3 ML NEB RESP TX SCH ×6 (03:20→22:49)
[2019-04-17 04:58] LABS: Basophils # 0.1 10*3/uL (0.0-0.2); Basophils % 0.5 % (0.0-0.8); Hemoglobin 14.6 GM/DL (14.0-18.0); Immature Granulocytes % 3.9 %; Immature Granulocytes Absolute 0.64 #; Lymphocytes # 1.8 10*3/uL (1.4-4.0); Lymphocytes % 10.6 % (21.2-54.2); Mean Corpuscular HGB Conc 31.7 GM/DL (32-36); Mean Corpuscular Volume 94.8 FL (87-102); Mean Platelet Volume 9.8 FL (9.6-12.0); Monocytes % 2.4 % (1.7-12.7); Neutrophils % 82.6 % (38.7-73.9); Platelet Count 526 T/CUMM (130-400); Red Blood Count 4.85 MC/CUMM (3.8-5.5); White Blood Count 16.5 T/CUMM (4-12)
[2019-04-17 05:19] LABS: Band Neutrophils 3 % (0-10); Hypochromasia Slight; Lymphocytes 12 % (20-55); Segmented Neutrophils 83 % (50-85); Total Cells Counted 100
[2019-04-17 05:20] LABS: Platelet Estimate Increased
[2019-04-17] MEDS: LEVOTHYROXINE 75 MCG TABLET PO SCH (09:28)
[2019-04-17] MEDS: TAMSULOSIN 0.4 MG CAPSULE PO SCH (09:28)
[2019-04-17] MEDS: FAMOTIDINE 20 MG TABLET PO SCH ×2 (09:28→22:16)
[2019-04-17] MEDS: methylPREDNISolone SOD SUC 40 MG/1 ML VIAL IV SCH ×2 (09:29→22:18)
[2019-04-17] MEDS: PANTOPRAZOLE 40 MG TABLET PO SCH (09:29)
[2019-04-17] MEDS: OMEGA 3 ACID ETHYL ESTERS 1 GM CAPSULE PO SCH (09:29)
[2019-04-17] MEDS: MULTIVITAMIN (CENTRUM) TABLET PO SCH (09:29)
[2019-04-17] MEDS: LEVOFLOXACIN 500 MG TABLET PO SCH (09:29)
[2019-04-17] MEDS: MELOXICAM 7.5 MG TABLET PO SCH (09:29)
[2019-04-17] MEDS: FLUTICASONE 50 MCG NASAL SPRAY 16 GM BOTTLE BOTH NARES SCH (09:30)
[2019-04-17] MEDS: DOCUSATE SODIUM 100 MG CAPSULE PO SCH ×2 (09:30→22:16)
[2019-04-17] MEDS: NON-FORMULARY MEDICATION (Umeclidinium-Vilanterol [Anoro Ellipta] 1 PUFF) INH SCH (12:20)
[2019-04-17] MEDS: SIMVASTATIN 40 MG TABLET PO SCH (22:16)
[2019-04-17] MEDS: ZALEPLON 5 MG CAPSULE PO SCH (22:16)
[2019-04-17] MEDS: cefTRIAXone 1,000 MG in SYRINGE 1 EACH IV SCH (22:17)
[2019-04-18] MEDS: ALBUTEROL/IPRATROPIUM 3 ML NEB RESP TX SCH ×3 (02:40→10:47)
[2019-04-18] MEDS: LEVOTHYROXINE 75 MCG TABLET PO SCH (07:39)
[2019-04-18] MEDS: methylPREDNISolone SOD SUC 40 MG/1 ML VIAL IV SCH (09:16)
[2019-04-18] MEDS: TAMSULOSIN 0.4 MG CAPSULE PO SCH (09:17)
[2019-04-18] MEDS: OMEGA 3 ACID ETHYL ESTERS 1 GM CAPSULE PO SCH (09:17)
[2019-04-18] MEDS: DOCUSATE SODIUM 100 MG CAPSULE PO SCH (09:17)
[2019-04-18] MEDS: MELOXICAM 7.5 MG TABLET PO SCH (09:17)
[2019-04-18] MEDS: MULTIVITAMIN (CENTRUM) TABLET PO SCH (09:17)
[2019-04-18] MEDS: PANTOPRAZOLE 40 MG TABLET PO SCH (09:17)
[2019-04-18] MEDS: FAMOTIDINE 20 MG TABLET PO SCH (09:17)
[2019-04-18] MEDS: LEVOFLOXACIN 500 MG TABLET PO SCH (09:17)
[2019-04-18] MEDS: FLUTICASONE 50 MCG NASAL SPRAY 16 GM BOTTLE BOTH NARES SCH (09:18)
[2019-04-18] MEDS: NON-FORMULARY MEDICATION (Umeclidinium-Vilanterol [Anoro Ellipta] 1 PUFF) INH SCH (12:31)
[2019-04-18 12:32] VITALS: BP 146/93
[2019-04-18] MEDS ORDERED: predniSONE 10 MG TABLET PO SCH (21:00)
== END 2019-04-18 15:20 | disposition home or self-care (01) | DRG 191 ==
LOC: N.ED 13:26 → N.EDINP 17:29 → N.TELES 18:06
PROVIDERS: ADMIT Family Medicine; ATTEND Family Medicine

== ENCOUNTER 2019-07-19 09:25 | Inpatient (IN) ==
[2019-07-19] MEDS ORDERED: ALBUTEROL 2.5 MG/3 ML NEB RESP TX SCH (10:00)
[2019-07-19 10:18] LABS: Basophils % 0.5 % (0.0-0.8); Eosinophils % 0.4 % (0.00-10.9); Hematocrit 45.9 VOL% (42.0-52.0); Hemoglobin 15.2 GM/DL (14.0-18.0); Immature Granulocytes % 0.4 %; Immature Granulocytes Absolute 0.03 #; Lymphocytes # 1.4 10*3/uL (1.4-4.0); Mean Corpuscular HGB Conc 33.1 GM/DL (32-36); Mean Platelet Volume 10.8 FL (9.6-12.0); Monocytes % 11.1 % (1.7-12.7); Neutrophils % 68.6 % (38.7-73.9); Platelet Count 211 T/CUMM (130-400); Red Blood Count 4.99 MC/CUMM (3.8-5.5); Red Cell Distribution Width 13.5 % (9.3-17.3); White Blood Count 7.5 T/CUMM (4-12)
[2019-07-19 10:28] LABS: INR 1.1; PT Patient Result 12.2 SECS (9.6-12.2); Partial Thromboplastin Time 30.6 SECS (20.8-36.0)
[2019-07-19 10:37] LABS: Albumin 3.3 G/DL (3.4-5.0); Bilirubin,Total 0.7 MG/DL (0.2-1.0); Calcium 8.6 MG/DL (8.5-10.1); Osmolality,Calculated 270.1 MOS/KG (273-304); Total Protein 7.4 G/DL (6.4-8.3)
[2019-07-19] MEDS ORDERED: LEVOFLOXACIN INJ 500 MG in PREMIX 1 EACH IV STA (12:46)
[2019-07-19] MEDS ORDERED: ONDANSETRON 4 MG/2 ML VIAL IV PRN (16:52)
[2019-07-19] MEDS ORDERED: ACETAMINOPHEN 325 MG TABLET PO PRN (16:52)
[2019-07-19] MEDS: SODIUM CHLORIDE 0.9% 1,000 ML IV SCH (18:02)
[2019-07-19] MEDS: ALBUTEROL/IPRATROPIUM 3 ML NEB RESP TX SCH ×2 (19:39→23:59)
[2019-07-19] MEDS: ZALEPLON 5 MG CAPSULE PO SCH (21:55)
[2019-07-19] MEDS: TAMSULOSIN 0.4 MG CAPSULE PO SCH (21:55)
[2019-07-19] MEDS: SIMVASTATIN 40 MG TABLET PO SCH (21:55)
[2019-07-19] MEDS: DOCUSATE SODIUM 100 MG CAPSULE PO SCH (21:56)
[2019-07-20 00:11] LABS: Apearance,Urine CLEAR (Clear); Bilirubin,Urine Negative (Negative); Blood, Urine Negative (Negative); Glucose,Urine (UA) Negative (Negative); Ketones,Urine 20 mg/dL (Negative); Mucus,Urine Occasional /LPF (Occasional); Nitrite,Urine Negative (Negative); Protein,Urine Negative; RBC,Urine 1 /HPF (0-4); Urine Color Yellow (Yellow); Urine Specific Gravity 1.024 (1.001-1.035); Urine Urobilinogen < 2.0 EU/DL (0.2-1.0); WBC,Urine 1 /HPF (0-6)
[2019-07-20] MEDS: SODIUM CHLORIDE 0.9% 1,000 ML IV SCH ×3 (01:59→17:30)
[2019-07-20] MEDS: ALBUTEROL/IPRATROPIUM 3 ML NEB RESP TX SCH ×5 (03:30→20:34)
[2019-07-20] MEDS ORDERED: CALCIUM CARBONATE CHEW 500 MG TABLET PO ONE (03:31)
[2019-07-20] MEDS ORDERED: FUROSEMIDE 20 MG/2 ML VIAL IV ONE (03:57)
[2019-07-20] MEDS ORDERED: SODIUM CHLORIDE 0.9% 1,000 ML IV SCH (04:00)
[2019-07-20 04:38] LABS: Basophils % 0.5 % (0.0-0.8); Eosinophils % 0.5 % (0.00-10.9); Hematocrit 44.6 VOL% (42.0-52.0); Hemoglobin 14.6 GM/DL (14.0-18.0); Immature Granulocytes % 0.3 %; Immature Granulocytes Absolute 0.02 #; Lymphocytes # 1.9 10*3/uL (1.4-4.0); Mean Corpuscular HGB Conc 32.7 GM/DL (32-36); Mean Corpuscular Volume 91.4 FL (87-102); Mean Platelet Volume 10.8 FL (9.6-12.0); Monocytes % 12.3 % (1.7-12.7); Neutrophils % 54.4 % (38.7-73.9); Platelet Count 203 T/CUMM (130-400); Red Blood Count 4.88 MC/CUMM (3.8-5.5); Red Cell Distribution Width 13.7 % (9.3-17.3); White Blood Count 5.9 T/CUMM (4-12)
[2019-07-20 05:04] LABS: Eosinophils 1 % (0-10); Lymphocytes 30 % (20-55); Platelet Estimate Adequate; Segmented Neutrophils 57 % (50-85); Total Cells Counted 100
[2019-07-20 05:11] LABS: Calcium 8.2 MG/DL (8.5-10.1); Osmolality,Calculated 275.7 MOS/KG (273-304)
[2019-07-20 05:23] LABS: Risk Ratio 3.43; VLDL CHOLESTEROL 13.2 MG/DL
[2019-07-20] MEDS ORDERED: LEVOTHYROXINE 75 MCG TABLET PO SCH (06:30)
[2019-07-20] MEDS: clonazePAM 0.5 MG TABLET PO SCH ×3 (09:06→20:48)
[2019-07-20] MEDS: MULTIVITAMIN (CENTRUM) TABLET PO SCH (09:07)
[2019-07-20] MEDS: PANTOPRAZOLE 40 MG TABLET PO SCH (09:07)
[2019-07-20] MEDS: TAMSULOSIN 0.4 MG CAPSULE PO SCH ×2 (09:07→20:48)
[2019-07-20] MEDS: ALUMINUM/MAGNES/SIMETH MAX STR 30 ML UDCUP PO PRN (09:08)
[2019-07-20] MEDS: MULTIVITAMIN (OCUVITE) TABLET PO SCH (09:08)
[2019-07-20] MEDS: DOCUSATE SODIUM 100 MG CAPSULE PO SCH ×2 (09:08→20:48)
[2019-07-20] MEDS: FLUTICASONE 50 MCG NASAL SPRAY 16 GM BOTTLE BOTH NARES SCH (09:09)
[2019-07-20] MEDS: methylPREDNISolone SOD SUC 40 MG/1 ML VIAL IV SCH ×2 (09:14→16:10)
[2019-07-20] MEDS: NON-FORMULARY MEDICATION (Umeclidinium-Vilanterol [Anoro Ellipta] 1 PUFF) INH SCH ×2 (13:22→16:09)
[2019-07-20] MEDS: PIPERACILLIN/TAZOBACTAM 3,375 MG in SODIUM CHLORIDE 0.9% 100 ML IV SCH (17:28)
[2019-07-20] MEDS: SIMVASTATIN 40 MG TABLET PO SCH (20:48)
[2019-07-20] MEDS: ZALEPLON 5 MG CAPSULE PO SCH (20:48)
[2019-07-21] MEDS: ALBUTEROL/IPRATROPIUM 3 ML NEB RESP TX SCH ×7 (00:28→23:58)
[2019-07-21] MEDS: methylPREDNISolone SOD SUC 40 MG/1 ML VIAL IV SCH ×3 (00:34→17:35)
[2019-07-21] MEDS: PIPERACILLIN/TAZOBACTAM 3,375 MG in SODIUM CHLORIDE 0.9% 100 ML IV SCH ×3 (00:34→17:34)
[2019-07-21] MEDS: LEVOTHYROXINE 88 MCG TABLET PO SCH (06:11)
[2019-07-21 06:14] LABS: Basophils % 0.1 % (0.0-0.8); Hematocrit 45.9 VOL% (42.0-52.0); Hemoglobin 14.7 GM/DL (14.0-18.0); Immature Granulocytes % 0.4 %; Immature Granulocytes Absolute 0.03 #; Lymphocytes % 13.6 % (21.2-54.2); Mean Corpuscular Volume 92.9 FL (87-102); Mean Platelet Volume 11.4 FL (9.6-12.0); Monocytes % 3.3 % (1.7-12.7); Neutrophils % 82.6 % (38.7-73.9); Platelet Count 206 T/CUMM (130-400); Red Blood Count 4.94 MC/CUMM (3.8-5.5); Red Cell Distribution Width 13.7 % (9.3-17.3); White Blood Count 7.4 T/CUMM (4-12)
[2019-07-21 06:30] LABS: Albumin 2.8 G/DL (3.4-5.0); Bilirubin,Total 0.8 MG/DL (0.2-1.0); Calcium 8.7 MG/DL (8.5-10.1); Osmolality,Calculated 285.4 MOS/KG (273-304)
[2019-07-21 06:32] LABS: Microcytosis 1+; Platelet Estimate Normal
[2019-07-21] MEDS: MULTIVITAMIN (CENTRUM) TABLET PO SCH (08:50)
[2019-07-21] MEDS: SODIUM CHLORIDE 0.9% 1,000 ML IV SCH (08:50)
[2019-07-21] MEDS: clonazePAM 0.5 MG TABLET PO SCH ×3 (08:50→20:50)
[2019-07-21] MEDS: MULTIVITAMIN (OCUVITE) TABLET PO SCH (08:51)
[2019-07-21] MEDS: TAMSULOSIN 0.4 MG CAPSULE PO SCH ×2 (08:51→20:51)
[2019-07-21] MEDS: DOCUSATE SODIUM 100 MG CAPSULE PO SCH ×2 (08:51→20:50)
[2019-07-21] MEDS: PANTOPRAZOLE 40 MG TABLET PO SCH (08:52)
[2019-07-21] MEDS: FLUTICASONE 50 MCG NASAL SPRAY 16 GM BOTTLE BOTH NARES SCH (09:08)
[2019-07-21] MEDS: NON-FORMULARY MEDICATION (Umeclidinium-Vilanterol [Anoro Ellipta] 1 PUFF) INH SCH (11:51)
[2019-07-21] MEDS: SIMVASTATIN 40 MG TABLET PO SCH (20:50)
[2019-07-21] MEDS: ZALEPLON 5 MG CAPSULE PO SCH (20:50)
[2019-07-21] MEDS ORDERED: PHENOL 1.4% THROAT SPRAY 177 ML BOTTLE PO PRN (21:43)
[2019-07-22] MEDS: methylPREDNISolone SOD SUC 40 MG/1 ML VIAL IV SCH ×3 (01:19→15:47)
[2019-07-22] MEDS: PIPERACILLIN/TAZOBACTAM 3,375 MG in SODIUM CHLORIDE 0.9% 100 ML IV SCH ×3 (01:20→15:47)
[2019-07-22] MEDS: ALBUTEROL/IPRATROPIUM 3 ML NEB RESP TX SCH ×6 (03:21→22:45)
[2019-07-22 05:29] LABS: Basophils % 0.1 % (0.0-0.8); Hematocrit 44.7 VOL% (42.0-52.0); Hemoglobin 14.3 GM/DL (14.0-18.0); Immature Granulocytes % 0.7 %; Lymphocytes # 1.3 10*3/uL (1.4-4.0); Mean Corpuscular Volume 93.5 FL (87-102); Mean Platelet Volume 11.1 FL (9.6-12.0); Monocytes % 3.1 % (1.7-12.7); Neutrophils % 87.1 % (38.7-73.9); Platelet Count 221 T/CUMM (130-400); Red Blood Count 4.78 MC/CUMM (3.8-5.5); Red Cell Distribution Width 13.8 % (9.3-17.3); White Blood Count 13.9 T/CUMM (4-12)
[2019-07-22 05:53] LABS: Alanine Aminotransferase 36 U/L (16-61); Albumin 2.7 G/DL (3.4-5.0); Alkaline Phosphatase 76 U/L (45-117); Aspartate Amino Transferase 33 U/L (0-37); Bilirubin,Total < 0.39 MG/DL (0.2-1.0); Blood Urea Nitrogen 20 MG/DL (7-18); Calcium 8.4 MG/DL (8.5-10.1); Estimated Glom Filtration Rate 82 ML/MIN; Glucose 126 MG/DL (74-106); Osmolality,Calculated 287.1 MOS/KG (273-304); Total Protein 6.8 G/DL (6.4-8.3)
[2019-07-22] MEDS: LEVOTHYROXINE 88 MCG TABLET PO SCH (06:25)
[2019-07-22] MEDS: MULTIVITAMIN (CENTRUM) TABLET PO SCH (09:17)
[2019-07-22] MEDS: PANTOPRAZOLE 40 MG TABLET PO SCH (09:17)
[2019-07-22] MEDS: TAMSULOSIN 0.4 MG CAPSULE PO SCH ×2 (09:17→20:41)
[2019-07-22] MEDS: clonazePAM 0.5 MG TABLET PO SCH ×3 (09:17→20:41)
[2019-07-22] MEDS: DOCUSATE SODIUM 100 MG CAPSULE PO SCH ×2 (09:17→20:41)
[2019-07-22] MEDS: MULTIVITAMIN (OCUVITE) TABLET PO SCH (09:17)
[2019-07-22] MEDS: FLUTICASONE 50 MCG NASAL SPRAY 16 GM BOTTLE BOTH NARES SCH (09:19)
[2019-07-22] MEDS: SODIUM CHLORIDE 0.9% 1,000 ML IV SCH ×2 (11:02→20:45)
[2019-07-22] MEDS: NON-FORMULARY MEDICATION (Umeclidinium-Vilanterol [Anoro Ellipta] 1 PUFF) INH SCH (11:02)
[2019-07-22] MEDS: ZALEPLON 5 MG CAPSULE PO SCH (20:41)
[2019-07-22] MEDS: SIMVASTATIN 40 MG TABLET PO SCH (20:41)
[2019-07-23] MEDS ORDERED: SODIUM CHLORIDE 0.9% 100 ML IV ONE (00:15)
[2019-07-23] MEDS: PIPERACILLIN/TAZOBACTAM 3,375 MG in SODIUM CHLORIDE 0.9% 100 ML IV SCH ×3 (00:22→15:49)
[2019-07-23] MEDS: methylPREDNISolone SOD SUC 40 MG/1 ML VIAL IV SCH ×3 (00:22→15:49)
[2019-07-23] MEDS: ALBUTEROL/IPRATROPIUM 3 ML NEB RESP TX SCH ×5 (02:36→19:57)
[2019-07-23 05:36] LABS: Basophils # 0.1 10*3/uL (0.0-0.2); Basophils % 0.5 % (0.0-0.8); Hematocrit 42.7 VOL% (42.0-52.0); Hemoglobin 13.8 GM/DL (14.0-18.0); Immature Granulocytes Absolute 0.39 #; Lymphocytes # 0.9 10*3/uL (1.4-4.0); Lymphocytes % 7.2 % (21.2-54.2); Mean Corpuscular HGB Conc 32.3 GM/DL (32-36); Mean Corpuscular Volume 93.8 FL (87-102); Mean Platelet Volume 11.3 FL (9.6-12.0); Monocytes % 3.3 % (1.7-12.7); Platelet Count 240 T/CUMM (130-400); Red Blood Count 4.55 MC/CUMM (3.8-5.5); Red Cell Distribution Width 13.8 % (9.3-17.3)
[2019-07-23 05:53] LABS: Calcium 8.1 MG/DL (8.5-10.1); Osmolality,Calculated 295.6 MOS/KG (273-304)
[2019-07-23 06:08] LABS: Lymphocytes 2 % (20-55); Microcytosis Slight; Platelet Estimate Adequate; Segmented Neutrophils 91 % (50-85); Total Cells Counted 100
[2019-07-23] MEDS: LEVOTHYROXINE 88 MCG TABLET PO SCH (06:38)
[2019-07-23] MEDS: PANTOPRAZOLE 40 MG TABLET PO SCH (08:59)
[2019-07-23] MEDS: FLUTICASONE 50 MCG NASAL SPRAY 16 GM BOTTLE BOTH NARES SCH (08:59)
[2019-07-23] MEDS: MULTIVITAMIN (CENTRUM) TABLET PO SCH (08:59)
[2019-07-23] MEDS: DOCUSATE SODIUM 100 MG CAPSULE PO SCH ×2 (08:59→20:53)
[2019-07-23] MEDS: TAMSULOSIN 0.4 MG CAPSULE PO SCH ×2 (08:59→20:53)
[2019-07-23] MEDS: MULTIVITAMIN (OCUVITE) TABLET PO SCH (08:59)
[2019-07-23] MEDS: SODIUM CHLORIDE 0.9% 1,000 ML IV SCH ×3 (08:59→22:14)
[2019-07-23] MEDS: clonazePAM 0.5 MG TABLET PO SCH ×3 (08:59→20:53)
[2019-07-23] MEDS: NON-FORMULARY MEDICATION (Umeclidinium-Vilanterol [Anoro Ellipta] 1 PUFF) INH SCH (12:38)
[2019-07-23] MEDS: SIMVASTATIN 40 MG TABLET PO SCH (20:53)
[2019-07-23] MEDS: ZALEPLON 5 MG CAPSULE PO SCH (22:13)
[2019-07-24] MEDS: ALBUTEROL/IPRATROPIUM 3 ML NEB RESP TX SCH ×7 (00:05→22:53)
[2019-07-24] MEDS: methylPREDNISolone SOD SUC 40 MG/1 ML VIAL IV SCH ×3 (01:20→15:54)
[2019-07-24] MEDS: PIPERACILLIN/TAZOBACTAM 3,375 MG in SODIUM CHLORIDE 0.9% 100 ML IV SCH ×3 (01:22→15:54)
[2019-07-24 05:43] LABS: Basophils # 0.1 10*3/uL (0.0-0.2); Basophils % 0.8 % (0.0-0.8); Hematocrit 46.2 VOL% (42.0-52.0); Hemoglobin 14.7 GM/DL (14.0-18.0); Immature Granulocytes % 5.8 %; Immature Granulocytes Absolute 0.85 #; Lymphocytes # 0.9 10*3/uL (1.4-4.0); Lymphocytes % 6.4 % (21.2-54.2); Mean Corpuscular HGB Conc 31.8 GM/DL (32-36); Mean Corpuscular Volume 93.3 FL (87-102); Mean Platelet Volume 11.2 FL (9.6-12.0); Monocytes % 4.1 % (1.7-12.7); Neutrophils % 82.9 % (38.7-73.9); Platelet Count 255 T/CUMM (130-400); Red Blood Count 4.95 MC/CUMM (3.8-5.5); Red Cell Distribution Width 13.6 % (9.3-17.3); White Blood Count 14.6 T/CUMM (4-12)
[2019-07-24] MEDS: LEVOTHYROXINE 88 MCG TABLET PO SCH (06:12)
[2019-07-24 06:51] LABS: Lymphocytes 7 % (20-55); Segmented Neutrophils 90 % (50-85)
[2019-07-24 06:55] LABS: Platelet Estimate Normal; Total Cells Counted 100
[2019-07-24] MEDS: clonazePAM 0.5 MG TABLET PO SCH ×4 (09:31→20:05)
[2019-07-24] MEDS: MULTIVITAMIN (CENTRUM) TABLET PO SCH (09:31)
[2019-07-24] MEDS: MULTIVITAMIN (OCUVITE) TABLET PO SCH (09:31)
[2019-07-24] MEDS: DOCUSATE SODIUM 100 MG CAPSULE PO SCH ×2 (09:31→20:05)
[2019-07-24] MEDS: PANTOPRAZOLE 40 MG TABLET PO SCH (09:31)
[2019-07-24] MEDS: FLUTICASONE 50 MCG NASAL SPRAY 16 GM BOTTLE BOTH NARES SCH (09:32)
[2019-07-24] MEDS: TAMSULOSIN 0.4 MG CAPSULE PO SCH ×2 (09:32→20:05)
[2019-07-24] MEDS: NON-FORMULARY MEDICATION (Umeclidinium-Vilanterol [Anoro Ellipta] 1 PUFF) INH SCH (11:48)
[2019-07-24] MEDS: SODIUM CHLORIDE 0.9% 1,000 ML IV SCH (11:51)
[2019-07-24] MEDS: SIMVASTATIN 40 MG TABLET PO SCH (20:05)
[2019-07-24] MEDS: ZALEPLON 5 MG CAPSULE PO SCH (20:05)
[2019-07-25] MEDS: methylPREDNISolone SOD SUC 40 MG/1 ML VIAL IV SCH ×2 (00:36→11:57)
[2019-07-25] MEDS: PIPERACILLIN/TAZOBACTAM 3,375 MG in SODIUM CHLORIDE 0.9% 100 ML IV SCH ×3 (00:36→16:58)
[2019-07-25] MEDS: ALBUTEROL/IPRATROPIUM 3 ML NEB RESP TX SCH ×6 (02:38→23:05)
[2019-07-25] MEDS: LEVOTHYROXINE 88 MCG TABLET PO SCH (06:36)
[2019-07-25] MEDS: DOCUSATE SODIUM 100 MG CAPSULE PO SCH ×2 (08:24→20:44)
[2019-07-25] MEDS: PANTOPRAZOLE 40 MG TABLET PO SCH (08:24)
[2019-07-25] MEDS: TAMSULOSIN 0.4 MG CAPSULE PO SCH ×2 (08:24→20:45)
[2019-07-25] MEDS: MULTIVITAMIN (OCUVITE) TABLET PO SCH (08:24)
[2019-07-25] MEDS: clonazePAM 0.5 MG TABLET PO SCH ×3 (08:24→20:44)
[2019-07-25] MEDS: MULTIVITAMIN (CENTRUM) TABLET PO SCH (08:24)
[2019-07-25] MEDS: FLUTICASONE 50 MCG NASAL SPRAY 16 GM BOTTLE BOTH NARES SCH (08:30)
[2019-07-25] MEDS: NON-FORMULARY MEDICATION (Umeclidinium-Vilanterol [Anoro Ellipta] 1 PUFF) INH SCH (12:00)
[2019-07-25] MEDS: ZALEPLON 5 MG CAPSULE PO SCH (20:44)
[2019-07-25] MEDS: SIMVASTATIN 40 MG TABLET PO SCH (20:45)
[2019-07-26] MEDS: methylPREDNISolone SOD SUC 40 MG/1 ML VIAL IV SCH (00:27)
[2019-07-26] MEDS: PIPERACILLIN/TAZOBACTAM 3,375 MG in SODIUM CHLORIDE 0.9% 100 ML IV SCH ×2 (00:28→09:29)
[2019-07-26] MEDS: ALBUTEROL/IPRATROPIUM 3 ML NEB RESP TX SCH ×6 (03:10→23:00)
[2019-07-26 05:49] LABS: Basophils % 0.1 % (0.0-0.8); Hematocrit 46.6 VOL% (42.0-52.0); Hemoglobin 15.1 GM/DL (14.0-18.0); Immature Granulocytes Absolute 1.46 #; Lymphocytes # 1.4 10*3/uL (1.4-4.0); Lymphocytes % 8.4 % (21.2-54.2); Mean Corpuscular HGB Conc 32.4 GM/DL (32-36); Mean Corpuscular Volume 91.9 FL (87-102); Mean Platelet Volume 10.8 FL (9.6-12.0); Monocytes % 5.1 % (1.7-12.7); Neutrophils % 77.4 % (38.7-73.9); Platelet Count 299 T/CUMM (130-400); Red Blood Count 5.07 MC/CUMM (3.8-5.5); Red Cell Distribution Width 13.5 % (9.3-17.3); White Blood Count 16.3 T/CUMM (4-12)
[2019-07-26 06:20] LABS: Albumin 2.6 G/DL (3.4-5.0); Bilirubin,Total 0.5 MG/DL (0.2-1.0); Calcium 8.2 MG/DL (8.5-10.1); Osmolality,Calculated 284.3 MOS/KG (273-304); Total Protein 6.4 G/DL (6.4-8.3)
[2019-07-26] MEDS: LEVOTHYROXINE 88 MCG TABLET PO SCH (06:22)
[2019-07-26 06:30] LABS: Eosinophils 1 % (0-10); Lymphocytes 11 % (20-55); Ovalocytes Few; Platelet Estimate Normal; Segmented Neutrophils 82 % (50-85); Total Cells Counted 100
[2019-07-26] MEDS: DOCUSATE SODIUM 100 MG CAPSULE PO SCH ×2 (09:31→21:05)
[2019-07-26] MEDS: ALUMINUM/MAGNES/SIMETH MAX STR 30 ML UDCUP PO PRN (09:31)
[2019-07-26] MEDS: MULTIVITAMIN (CENTRUM) TABLET PO SCH (09:31)
[2019-07-26] MEDS: MULTIVITAMIN (OCUVITE) TABLET PO SCH (09:31)
[2019-07-26] MEDS: clonazePAM 0.5 MG TABLET PO SCH ×3 (09:31→21:05)
[2019-07-26] MEDS: TAMSULOSIN 0.4 MG CAPSULE PO SCH ×2 (09:31→21:05)
[2019-07-26] MEDS: PANTOPRAZOLE 40 MG TABLET PO SCH (09:31)
[2019-07-26] MEDS: FLUTICASONE 50 MCG NASAL SPRAY 16 GM BOTTLE BOTH NARES SCH (09:36)
[2019-07-26] MEDS: NON-FORMULARY MEDICATION (Umeclidinium-Vilanterol [Anoro Ellipta] 1 PUFF) INH SCH (12:00)
[2019-07-26] MEDS ORDERED: MAGNESIUM HYDROXIDE SUSP 30 ML UDCUP PO PRN (19:49)
[2019-07-26] MEDS ORDERED: MAGNESIUM HYDROXIDE SUSP 30 ML UDCUP PO ONE (19:49)
[2019-07-26] MEDS: SIMVASTATIN 40 MG TABLET PO SCH (21:05)
[2019-07-26] MEDS: ZALEPLON 5 MG CAPSULE PO SCH (21:05)
[2019-07-27 05:21] LABS: Eosinophils # 0.4 10*3/uL (0.0-0.87); Eosinophils % 2.1 % (0.00-10.9); Hematocrit 46.9 VOL% (42.0-52.0); Hemoglobin 15.1 GM/DL (14.0-18.0); Immature Granulocytes % 8.1 %; Immature Granulocytes Absolute 1.66 #; Lymphocytes # 4.8 10*3/uL (1.4-4.0); Lymphocytes % 23.2 % (21.2-54.2); Mean Corpuscular HGB Conc 32.2 GM/DL (32-36); Mean Corpuscular Volume 92.9 FL (87-102); Mean Platelet Volume 10.8 FL (9.6-12.0); Monocytes % 9.6 % (1.7-12.7); Platelet Count 302 T/CUMM (130-400); Red Blood Count 5.05 MC/CUMM (3.8-5.5); Red Cell Distribution Width 13.8 % (9.3-17.3); White Blood Count 20.5 T/CUMM (4-12)
[2019-07-27 05:43] LABS: Band Neutrophils 1 % (0-10); Eosinophils 3 % (0-10); Lymphocytes 34 % (20-55); Segmented Neutrophils 57 % (50-85); Total Cells Counted 100
[2019-07-27 05:44] LABS: Atypical Lymphocytes Few; Hypochromasia 1+; Microcytosis Slight
[2019-07-27 05:45] LABS: Platelet Estimate Normal
[2019-07-27] MEDS: LEVOTHYROXINE 88 MCG TABLET PO SCH (06:28)
[2019-07-27] MEDS: ALBUTEROL/IPRATROPIUM 3 ML NEB RESP TX SCH ×5 (07:13→22:54)
[2019-07-27] MEDS: MULTIVITAMIN (CENTRUM) TABLET PO SCH (08:51)
[2019-07-27] MEDS: predniSONE 20 MG TABLET PO SCH (08:51)
[2019-07-27] MEDS: TAMSULOSIN 0.4 MG CAPSULE PO SCH ×2 (08:51→21:47)
[2019-07-27] MEDS: PANTOPRAZOLE 40 MG TABLET PO SCH (08:51)
[2019-07-27] MEDS: MULTIVITAMIN (OCUVITE) TABLET PO SCH (08:51)
[2019-07-27] MEDS: DOCUSATE SODIUM 100 MG CAPSULE PO SCH ×2 (08:51→21:47)
[2019-07-27] MEDS: clonazePAM 0.5 MG TABLET PO SCH ×3 (08:51→21:47)
[2019-07-27] MEDS: FLUTICASONE 50 MCG NASAL SPRAY 16 GM BOTTLE BOTH NARES SCH (08:52)
[2019-07-27] MEDS: NON-FORMULARY MEDICATION (Umeclidinium-Vilanterol [Anoro Ellipta] 1 PUFF) INH SCH (12:40)
[2019-07-27] MEDS: SIMVASTATIN 40 MG TABLET PO SCH (21:47)
[2019-07-28] MEDS: ALBUTEROL/IPRATROPIUM 3 ML NEB RESP TX SCH ×3 (03:20→10:45)
[2019-07-28 05:50] LABS: Basophils % 0.1 % (0.0-0.8); Eosinophils # 0.1 10*3/uL (0.0-0.87); Eosinophils % 0.6 % (0.00-10.9); Hematocrit 44.4 VOL% (42.0-52.0); Hemoglobin 14.3 GM/DL (14.0-18.0); Immature Granulocytes % 7.1 %; Immature Granulocytes Absolute 1.48 #; Lymphocytes # 4.4 10*3/uL (1.4-4.0); Lymphocytes % 21.1 % (21.2-54.2); Mean Corpuscular HGB Conc 32.2 GM/DL (32-36); Mean Corpuscular Volume 92.5 FL (87-102); Mean Platelet Volume 10.9 FL (9.6-12.0); Monocytes % 6.9 % (1.7-12.7); Neutrophils % 64.2 % (38.7-73.9); Platelet Count 306 T/CUMM (130-400); Red Cell Distribution Width 13.8 % (9.3-17.3); White Blood Count 20.9 T/CUMM (4-12)
[2019-07-28 06:10] LABS: Calcium 7.9 MG/DL (8.5-10.1); Osmolality,Calculated 287.1 MOS/KG (273-304)
[2019-07-28 06:13] LABS: Lymphocytes 22 % (20-55); Platelet Estimate Adequate; Segmented Neutrophils 71 % (50-85); Total Cells Counted 100
[2019-07-28 06:14] LABS: Hypochromasia Slight; Microcytosis Slight; Ovalocytes Slight
[2019-07-28] MEDS: LEVOTHYROXINE 88 MCG TABLET PO SCH (06:26)
[2019-07-28 07:57] VITALS: BP 116/59
[2019-07-28] MEDS ORDERED: LEVOFLOXACIN 500 MG TABLET PO SCH (08:30)
[2019-07-28] MEDS: clonazePAM 0.5 MG TABLET PO SCH (08:42)
[2019-07-28] MEDS: MULTIVITAMIN (OCUVITE) TABLET PO SCH (08:42)
[2019-07-28] MEDS: DOCUSATE SODIUM 100 MG CAPSULE PO SCH (08:42)
[2019-07-28] MEDS: MULTIVITAMIN (CENTRUM) TABLET PO SCH (08:42)
[2019-07-28] MEDS: PANTOPRAZOLE 40 MG TABLET PO SCH (08:42)
[2019-07-28] MEDS: predniSONE 20 MG TABLET PO SCH (08:42)
[2019-07-28] MEDS: TAMSULOSIN 0.4 MG CAPSULE PO SCH (08:42)
[2019-07-28] MEDS: FLUTICASONE 50 MCG NASAL SPRAY 16 GM BOTTLE BOTH NARES SCH (08:43)
== END 2019-07-28 11:45 | disposition home or self-care (01) | DRG 193 ==
LOC: N.ED 09:25 → N.EDINP 12:49 → N.4E 14:39
PROVIDERS: ADMIT Family Medicine; ATTEND Family Medicine

== ENCOUNTER 2019-08-24 16:48 | Inpatient (IN) ==
[2019-08-24 18:06] LABS: Basophils # 0.1 10*3/uL (0.0-0.2); Basophils % 0.8 % (0.0-0.8); Eosinophils % 0.1 % (0.00-10.9); Hematocrit 45.9 VOL% (42.0-52.0); Hemoglobin 14.9 GM/DL (14.0-18.0); Immature Granulocytes Absolute 0.58 #; Lymphocytes # 1.2 10*3/uL (1.4-4.0); Lymphocytes % 8.4 % (21.2-54.2); Mean Corpuscular HGB Conc 32.5 GM/DL (32-36); Mean Corpuscular Volume 91.6 FL (87-102); Mean Platelet Volume 9.7 FL (9.6-12.0); Monocytes % 6.2 % (1.7-12.7); Neutrophils % 80.5 % (38.7-73.9); Platelet Count 342 T/CUMM (130-400); Red Blood Count 5.01 MC/CUMM (3.8-5.5); Red Cell Distribution Width 14.3 % (9.3-17.3); White Blood Count 14.6 T/CUMM (4-12)
[2019-08-24] MEDS ORDERED: ALBUTEROL/IPRATROPIUM 3 ML NEB RESP TX STA (18:24)
[2019-08-24] MEDS ORDERED: MORPHINE 4 MG/1 ML VIAL IV STA (18:24)
[2019-08-24] MEDS ORDERED: methylPREDNISolone SOD SUC 125 MG/2 ML VIAL IV STA (18:24)
[2019-08-24 18:29] LABS: Band Neutrophils 1 % (0-10); Lymphocytes 11 % (20-55); Platelet Estimate Normal; Segmented Neutrophils 85 % (50-85); Total Cells Counted 100
[2019-08-24] MEDS ORDERED: ONDANSETRON 4 MG/2 ML VIAL IV STA (18:32)
[2019-08-24 18:33] LABS: Alanine Aminotransferase 54 U/L (16-61); Albumin 2.6 G/DL (3.4-5.0); Alkaline Phosphatase 73 U/L (45-117); Aspartate Amino Transferase 29 U/L (0-37); Bilirubin,Total < 0.39 MG/DL (0.2-1.0); Blood Urea Nitrogen 29 MG/DL (7-18); Calcium 9.2 MG/DL (8.5-10.1); Estimated Glom Filtration Rate 65 ML/MIN; Glucose 88 MG/DL (74-106); Osmolality,Calculated 277.8 MOS/KG (273-304); Total Protein 8.6 G/DL (6.4-8.3)
[2019-08-24] MEDS ORDERED: ONDANSETRON 4 MG/2 ML VIAL ONE (18:33)
[2019-08-24 18:49] LABS: INR 1.2
[2019-08-24 20:17] LABS: Troponin I < 0.015 NG/ML (0.00-0.045)
[2019-08-24 20:49] LABS: Apearance,Urine CLEAR (Clear); Bilirubin,Urine Negative (Negative); Blood, Urine Moderate mg/dL (Negative); Glucose,Urine (UA) Negative (Negative); Ketones,Urine Negative (Negative); Mucus,Urine Occasional /LPF (Occasional); Nitrite,Urine Negative (Negative); Protein,Urine Negative; RBC,Urine 54 /HPF (0-4); Urine Color Yellow (Yellow); Urine Specific Gravity 1.016 (1.001-1.035); Urine Urobilinogen < 2.0 EU/DL (0.2-1.0); WBC,Urine 4 /HPF (0-6)
[2019-08-24] MEDS ORDERED: ONDANSETRON 4 MG/2 ML VIAL IV PRN (21:07)
[2019-08-24] MEDS ORDERED: IBUPROFEN 600 MG TABLET PO PRN (21:07)
[2019-08-24] MEDS ORDERED: ALBUTEROL 2.5 MG/3 ML NEB RESP TX PRN (21:07)
[2019-08-24] MEDS ORDERED: MORPHINE 4 MG/1 ML VIAL IV PRN (21:07)
[2019-08-24] MEDS ORDERED: ACETAMINOPHEN 325 MG TABLET PO PRN (21:07)
[2019-08-24] MEDS: RANITIDINE 150 MG TABLET PO SCH (22:04)
[2019-08-24] MEDS: ZALEPLON 5 MG CAPSULE PO SCH (22:04)
[2019-08-24] MEDS: TAMSULOSIN 0.4 MG CAPSULE PO SCH (22:04)
[2019-08-24] MEDS: SIMVASTATIN 40 MG TABLET PO SCH (22:05)
[2019-08-24] MEDS: PIPERACILLIN/TAZOBACTAM 3,375 MG in SODIUM CHLORIDE 0.9% 100 ML IV SCH (22:05)
[2019-08-24] MEDS: SODIUM CHLORIDE 0.9% 1,000 ML IV SCH (22:05)
[2019-08-24] MEDS: DOCUSATE SODIUM 100 MG CAPSULE PO SCH (22:07)
[2019-08-24] MEDS ORDERED: ALBUTEROL/IPRATROPIUM 3 ML NEB RESP TX PRN (23:00)
[2019-08-24] MEDS: ALBUTEROL/IPRATROPIUM 3 ML NEB RESP TX SCH (23:36)
[2019-08-25 04:56] LABS: Basophils # 0.1 10*3/uL (0.0-0.2); Basophils % 0.4 % (0.0-0.8); Hematocrit 37.6 VOL% (42.0-52.0); Hemoglobin 12.4 GM/DL (14.0-18.0); Immature Granulocytes % 2.9 %; Immature Granulocytes Absolute 0.37 #; Lymphocytes # 0.7 10*3/uL (1.4-4.0); Lymphocytes % 5.3 % (21.2-54.2); Mean Corpuscular Volume 90.8 FL (87-102); Mean Platelet Volume 10.1 FL (9.6-12.0); Monocytes % 4.9 % (1.7-12.7); Neutrophils % 86.5 % (38.7-73.9); Platelet Count 310 T/CUMM (130-400); Red Blood Count 4.14 MC/CUMM (3.8-5.5); Red Cell Distribution Width 14.3 % (9.3-17.3); White Blood Count 12.7 T/CUMM (4-12)
[2019-08-25] MEDS: methylPREDNISolone SOD SUC 40 MG/1 ML VIAL IV SCH ×3 (04:58→21:27)
[2019-08-25] MEDS: PIPERACILLIN/TAZOBACTAM 3,375 MG in SODIUM CHLORIDE 0.9% 100 ML IV SCH ×3 (05:00→21:27)
[2019-08-25 05:58] LABS: Bilirubin,Total 0.5 MG/DL (0.2-1.0); Calcium 8.7 MG/DL (8.5-10.1); Osmolality,Calculated 282.7 MOS/KG (273-304); Total Protein 6.9 G/DL (6.4-8.3)
[2019-08-25] MEDS: LEVOTHYROXINE 88 MCG TABLET PO SCH (06:08)
[2019-08-25] MEDS: ALBUTEROL/IPRATROPIUM 3 ML NEB RESP TX SCH ×3 (07:18→23:59)
[2019-08-25] MEDS ORDERED: MELOXICAM 7.5 MG TABLET PO SCH (08:00)
[2019-08-25] MEDS: MULTIVITAMIN (CENTRUM) TABLET PO SCH (08:49)
[2019-08-25] MEDS: TAMSULOSIN 0.4 MG CAPSULE PO SCH ×2 (08:49→21:26)
[2019-08-25] MEDS: DOCUSATE SODIUM 100 MG CAPSULE PO SCH ×2 (08:49→21:27)
[2019-08-25] MEDS: RANITIDINE 150 MG TABLET PO SCH ×2 (08:49→21:26)
[2019-08-25] MEDS: MULTIVITAMIN (OCUVITE) TABLET PO SCH (08:49)
[2019-08-25] MEDS: PANTOPRAZOLE 40 MG VIAL IV SCH (08:50)
[2019-08-25] MEDS: FLUTICASONE 50 MCG NASAL SPRAY 16 GM BOTTLE BOTH NARES SCH (10:47)
[2019-08-25] MEDS: Umeclidinium-Vilanterol [Anoro Ellipta] INH SCH (12:46)
[2019-08-25] MEDS: ZALEPLON 5 MG CAPSULE PO SCH (21:26)
[2019-08-25] MEDS: SIMVASTATIN 40 MG TABLET PO SCH (21:26)
[2019-08-25] MEDS: guaiFENesin 200 MG/10 ML UDCUP PO PRN (22:15)
[2019-08-26] MEDS: ALBUTEROL/IPRATROPIUM 3 ML NEB RESP TX SCH ×3 (00:10→16:23)
[2019-08-26] MEDS: SODIUM CHLORIDE 0.9% 1,000 ML IV SCH ×3 (03:04→14:34)
[2019-08-26] MEDS: methylPREDNISolone SOD SUC 40 MG/1 ML VIAL IV SCH ×3 (04:21→20:34)
[2019-08-26 04:53] LABS: Basophils # 0.1 10*3/uL (0.0-0.2); Basophils % 0.4 % (0.0-0.8); Hemoglobin 12.4 GM/DL (14.0-18.0); Immature Granulocytes Absolute 0.64 #; Lymphocytes # 0.7 10*3/uL (1.4-4.0); Lymphocytes % 3.2 % (21.2-54.2); Mean Corpuscular HGB Conc 31.8 GM/DL (32-36); Mean Corpuscular Volume 92.4 FL (87-102); Monocytes % 2.3 % (1.7-12.7); Neutrophils % 91.1 % (38.7-73.9); Platelet Count 336 T/CUMM (130-400); Red Blood Count 4.22 MC/CUMM (3.8-5.5); Red Cell Distribution Width 14.5 % (9.3-17.3); White Blood Count 21.4 T/CUMM (4-12)
[2019-08-26 05:18] LABS: Bilirubin,Total 0.5 MG/DL (0.2-1.0); Calcium 8.3 MG/DL (8.5-10.1); Lymphocytes 4 % (20-55); Microcytosis Slight; Osmolality,Calculated 284.5 MOS/KG (273-304); Segmented Neutrophils 92 % (50-85); Total Cells Counted 100; Total Protein 6.8 G/DL (6.4-8.3)
[2019-08-26 05:19] LABS: Hypochromasia Slight; Platelet Estimate Normal
[2019-08-26] MEDS: PIPERACILLIN/TAZOBACTAM 3,375 MG in SODIUM CHLORIDE 0.9% 100 ML IV SCH ×3 (06:04→23:15)
[2019-08-26] MEDS: LEVOTHYROXINE 88 MCG TABLET PO SCH (06:46)
[2019-08-26] MEDS ORDERED: PROMETHAZINE 25 MG/1 ML VIAL IM ONE (07:00)
[2019-08-26] MEDS ORDERED: MEPERIDINE 50 MG/1 ML VIAL IM ONE (07:00)
[2019-08-26] MEDS ORDERED: MIDAZOLAM 2 MG/2 ML VIAL ONE (07:20)
[2019-08-26] MEDS ORDERED: LIDOCAINE 2% 20 ML VIAL RESP TX ONE (07:30)
[2019-08-26] MEDS ORDERED: LIDOCAINE 2% VISCOUS 100 ML BOTTLE SWISH/SPIT ONE (07:30)
[2019-08-26] MEDS ORDERED: MIDAZOLAM 2 MG/2 ML VIAL IV ONE (07:30)
[2019-08-26] MEDS ORDERED: LIDOCAINE 1% 20 ML VIAL MISC INJ ONE (07:30)
[2019-08-26] MEDS: MULTIVITAMIN (CENTRUM) TABLET PO SCH (08:54)
[2019-08-26] MEDS: DOCUSATE SODIUM 100 MG CAPSULE PO SCH ×2 (08:54→20:33)
[2019-08-26] MEDS: RANITIDINE 150 MG TABLET PO SCH ×2 (08:55→20:34)
[2019-08-26] MEDS: MULTIVITAMIN (OCUVITE) TABLET PO SCH (08:55)
[2019-08-26] MEDS: TAMSULOSIN 0.4 MG CAPSULE PO SCH ×2 (08:55→20:33)
[2019-08-26] MEDS: predniSONE 10 MG TABLET PO SCH (08:55)
[2019-08-26] MEDS: PANTOPRAZOLE 40 MG VIAL IV SCH (09:42)
[2019-08-26] MEDS: FLUTICASONE 50 MCG NASAL SPRAY 16 GM BOTTLE BOTH NARES SCH (09:43)
[2019-08-26] MEDS: Umeclidinium-Vilanterol [Anoro Ellipta] INH SCH (13:14)
[2019-08-26] MEDS: ZALEPLON 5 MG CAPSULE PO SCH (20:33)
[2019-08-26] MEDS: SIMVASTATIN 40 MG TABLET PO SCH (20:34)
[2019-08-27] MEDS: methylPREDNISolone SOD SUC 40 MG/1 ML VIAL IV SCH ×3 (05:38→20:46)
[2019-08-27] MEDS: PIPERACILLIN/TAZOBACTAM 3,375 MG in SODIUM CHLORIDE 0.9% 100 ML IV SCH ×3 (05:42→22:37)
[2019-08-27] MEDS: LEVOTHYROXINE 88 MCG TABLET PO SCH (05:46)
[2019-08-27 06:07] LABS: Hematocrit 42.2 VOL% (42.0-52.0); Hemoglobin 13.3 GM/DL (14.0-18.0); Immature Granulocytes Absolute 1.09 #; Lymphocytes # 1.2 10*3/uL (1.4-4.0); Lymphocytes % 5.5 % (21.2-54.2); Mean Corpuscular HGB Conc 31.5 GM/DL (32-36); Mean Platelet Volume 11.1 FL (9.6-12.0); Monocytes % 4.7 % (1.7-12.7); Neutrophils % 84.8 % (38.7-73.9); Platelet Count 245 T/CUMM (130-400); Red Blood Count 4.49 MC/CUMM (3.8-5.5); Red Cell Distribution Width 14.3 % (9.3-17.3); White Blood Count 21.6 T/CUMM (4-12)
[2019-08-27 06:45] LABS: Calcium 8.1 MG/DL (8.5-10.1); Osmolality,Calculated 281.7 MOS/KG (273-304)
[2019-08-27 07:15] LABS: Band Neutrophils 8 % (0-10); Lymphocytes 7 % (20-55); Metamyelocytes 2 %; Platelet Estimate Normal; Segmented Neutrophils 79 % (50-85); Total Cells Counted 100
[2019-08-27] MEDS: ALBUTEROL/IPRATROPIUM 3 ML NEB RESP TX SCH ×3 (07:32→23:47)
[2019-08-27] MEDS: SODIUM CHLORIDE 0.9% 1,000 ML IV SCH ×2 (08:37→20:57)
[2019-08-27] MEDS: MULTIVITAMIN (CENTRUM) TABLET PO SCH (08:40)
[2019-08-27] MEDS: DOCUSATE SODIUM 100 MG CAPSULE PO SCH ×2 (08:40→20:46)
[2019-08-27] MEDS: TAMSULOSIN 0.4 MG CAPSULE PO SCH ×2 (08:40→20:46)
[2019-08-27] MEDS: MULTIVITAMIN (OCUVITE) TABLET PO SCH (08:40)
[2019-08-27] MEDS: RANITIDINE 150 MG TABLET PO SCH ×2 (08:40→20:46)
[2019-08-27] MEDS: FLUTICASONE 50 MCG NASAL SPRAY 16 GM BOTTLE BOTH NARES SCH (08:42)
[2019-08-27] MEDS: PANTOPRAZOLE 40 MG VIAL IV SCH (08:43)
[2019-08-27] MEDS: Umeclidinium-Vilanterol [Anoro Ellipta] INH SCH (12:24)
[2019-08-27] MEDS: VANCOMYCIN INJ 1,250 MG in SODIUM CHLORIDE 0.9% 250 ML IV SCH (12:24)
[2019-08-27] MEDS: SIMVASTATIN 40 MG TABLET PO SCH (20:46)
[2019-08-27] MEDS: ZALEPLON 5 MG CAPSULE PO SCH (20:46)
[2019-08-27] MEDS: guaiFENesin 200 MG/10 ML UDCUP PO PRN (20:51)
[2019-08-28] MEDS: VANCOMYCIN INJ 1,250 MG in SODIUM CHLORIDE 0.9% 250 ML IV SCH ×3 (00:52→23:40)
[2019-08-28 03:41] LABS: Basophils # 0.2 10*3/uL (0.0-0.2); Basophils % 0.8 % (0.0-0.8); Hematocrit 39.2 VOL% (42.0-52.0); Hemoglobin 12.7 GM/DL (14.0-18.0); Immature Granulocytes % 5.6 %; Immature Granulocytes Absolute 1.21 #; Lymphocytes % 4.8 % (21.2-54.2); Mean Corpuscular HGB Conc 32.4 GM/DL (32-36); Mean Corpuscular Volume 92.9 FL (87-102); Mean Platelet Volume 9.8 FL (9.6-12.0); Monocytes % 3.9 % (1.7-12.7); Neutrophils % 84.9 % (38.7-73.9); Platelet Count 337 T/CUMM (130-400); Red Blood Count 4.22 MC/CUMM (3.8-5.5); Red Cell Distribution Width 14.5 % (9.3-17.3); White Blood Count 21.5 T/CUMM (4-12)
[2019-08-28 04:08] LABS: Calcium 8.1 MG/DL (8.5-10.1)
[2019-08-28 04:19] LABS: Anisocytosis 1+; Band Neutrophils 1 % (0-10); Lymphocytes 4 % (20-55); Metamyelocytes 1 %; Myelocytes 1 %; Platelet Estimate Normal; Segmented Neutrophils 90 % (50-85); Total Cells Counted 100
[2019-08-28] MEDS: methylPREDNISolone SOD SUC 40 MG/1 ML VIAL IV SCH ×3 (04:55→21:54)
[2019-08-28] MEDS: LEVOTHYROXINE 88 MCG TABLET PO SCH (05:39)
[2019-08-28] MEDS: PIPERACILLIN/TAZOBACTAM 3,375 MG in SODIUM CHLORIDE 0.9% 100 ML IV SCH ×2 (05:40→17:24)
[2019-08-28] MEDS: ALBUTEROL/IPRATROPIUM 3 ML NEB RESP TX SCH ×3 (07:27→22:45)
[2019-08-28] MEDS: DOCUSATE SODIUM 100 MG CAPSULE PO SCH ×2 (08:57→21:52)
[2019-08-28] MEDS: MULTIVITAMIN (OCUVITE) TABLET PO SCH (08:57)
[2019-08-28] MEDS: TAMSULOSIN 0.4 MG CAPSULE PO SCH ×2 (08:58→21:52)
[2019-08-28] MEDS: PANTOPRAZOLE 40 MG VIAL IV SCH (08:58)
[2019-08-28] MEDS: predniSONE 10 MG TABLET PO SCH (08:58)
[2019-08-28] MEDS: RANITIDINE 150 MG TABLET PO SCH ×2 (08:58→21:52)
[2019-08-28] MEDS: MULTIVITAMIN (CENTRUM) TABLET PO SCH (08:58)
[2019-08-28] MEDS: FLUTICASONE 50 MCG NASAL SPRAY 16 GM BOTTLE BOTH NARES SCH (08:59)
[2019-08-28] MEDS: Umeclidinium-Vilanterol [Anoro Ellipta] INH SCH (11:21)
[2019-08-28] MEDS: SODIUM CHLORIDE 3% 4 ML NEB RESP TX SCH ×2 (16:04→22:45)
[2019-08-28] MEDS: SODIUM CHLORIDE 0.9% 1,000 ML IV SCH ×2 (17:28→23:41)
[2019-08-28] MEDS: SIMVASTATIN 40 MG TABLET PO SCH (21:52)
[2019-08-28] MEDS: diphenhydrAMINE CAP 25 MG CAPSULE PO SCH (21:52)
[2019-08-28] MEDS: ZALEPLON 5 MG CAPSULE PO SCH (21:52)
[2019-08-29] MEDS: PIPERACILLIN/TAZOBACTAM 3,375 MG in SODIUM CHLORIDE 0.9% 100 ML IV SCH ×3 (03:00→16:42)
[2019-08-29] MEDS: methylPREDNISolone SOD SUC 40 MG/1 ML VIAL IV SCH ×2 (04:00→11:22)
[2019-08-29] MEDS: LEVOTHYROXINE 88 MCG TABLET PO SCH (06:47)
[2019-08-29] MEDS: ALBUTEROL/IPRATROPIUM 3 ML NEB RESP TX SCH ×3 (08:16→22:52)
[2019-08-29] MEDS: SODIUM CHLORIDE 3% 4 ML NEB RESP TX SCH ×2 (08:16→19:09)
[2019-08-29] MEDS: MULTIVITAMIN (CENTRUM) TABLET PO SCH (08:54)
[2019-08-29] MEDS: DOCUSATE SODIUM 100 MG CAPSULE PO SCH ×2 (08:54→21:15)
[2019-08-29] MEDS: TAMSULOSIN 0.4 MG CAPSULE PO SCH (08:54)
[2019-08-29] MEDS: RANITIDINE 150 MG TABLET PO SCH ×2 (08:54→21:16)
[2019-08-29] MEDS: MULTIVITAMIN (OCUVITE) TABLET PO SCH (08:54)
[2019-08-29] MEDS: FLUTICASONE 50 MCG NASAL SPRAY 16 GM BOTTLE BOTH NARES SCH (08:55)
[2019-08-29] MEDS: PANTOPRAZOLE 40 MG VIAL IV SCH (08:55)
[2019-08-29] MEDS: SODIUM CHLORIDE 0.9% 1,000 ML IV SCH ×2 (09:03→15:38)
[2019-08-29 11:11] LABS: Apearance,Urine CLEAR (Clear); Bilirubin,Urine Negative (Negative); Blood, Urine Negative (Negative); Glucose,Urine (UA) Negative (Negative); Ketones,Urine Negative (Negative); Mucus,Urine Occasional /LPF (Occasional); Nitrite,Urine Negative (Negative); Protein,Urine Negative; RBC,Urine 1 /HPF (0-4); Urine Color Yellow (Yellow); Urine Specific Gravity 1.013 (1.001-1.035); Urine Urobilinogen < 2.0 EU/DL (0.2-1.0); WBC,Urine <1 /HPF (0-6)
[2019-08-29] MEDS: VANCOMYCIN INJ 1,250 MG in SODIUM CHLORIDE 0.9% 250 ML IV SCH (13:50)
[2019-08-29] MEDS: Umeclidinium-Vilanterol [Anoro Ellipta] INH SCH (13:51)
[2019-08-29] MEDS: diphenhydrAMINE CAP 25 MG CAPSULE PO SCH (21:16)
[2019-08-29] MEDS: ZALEPLON 5 MG CAPSULE PO SCH (21:16)
[2019-08-29] MEDS: ITRACONAZOLE 100 MG CAPSULE PO SCH (21:16)
[2019-08-29] MEDS ORDERED: methylPREDNISolone SOD SUC 40 MG/1 ML VIAL IV SCH (23:00)
[2019-08-30] MEDS: PIPERACILLIN/TAZOBACTAM 3,375 MG in SODIUM CHLORIDE 0.9% 100 ML IV SCH ×3 (00:07→17:11)
[2019-08-30] MEDS: VANCOMYCIN INJ 1,250 MG in SODIUM CHLORIDE 0.9% 250 ML IV SCH ×2 (04:07→14:56)
[2019-08-30 05:04] LABS: Hematocrit 40.3 VOL% (42.0-52.0); Hemoglobin 13.2 GM/DL (14.0-18.0); Immature Granulocytes % 6.8 %; Immature Granulocytes Absolute 2.01 #; Lymphocytes # 1.3 10*3/uL (1.4-4.0); Lymphocytes % 4.3 % (21.2-54.2); Mean Corpuscular HGB Conc 32.8 GM/DL (32-36); Mean Platelet Volume 10.3 FL (9.6-12.0); Monocytes % 4.8 % (1.7-12.7); NRBC # 0.03 10*3/uL; Neutrophils % 84.1 % (38.7-73.9); Platelet Count 357 T/CUMM (130-400); Red Blood Count 4.48 MC/CUMM (3.8-5.5); Red Cell Distribution Width 14.4 % (9.3-17.3); White Blood Count 29.7 T/CUMM (4-12)
[2019-08-30 05:24] LABS: Band Neutrophils 1 % (0-10); Lymphocytes 4 % (20-55); Metamyelocytes 1 %; Segmented Neutrophils 89 % (50-85); Total Cells Counted 100
[2019-08-30 05:25] LABS: Microcytosis Slight
[2019-08-30 05:26] LABS: Alanine Aminotransferase 57 U/L (16-61); Alkaline Phosphatase 59 U/L (45-117); Aspartate Amino Transferase 30 U/L (0-37); Bilirubin,Total < 0.39 MG/DL (0.2-1.0); Blood Urea Nitrogen 25 MG/DL (7-18); Calcium 8.1 MG/DL (8.5-10.1); Estimated Glom Filtration Rate 81 ML/MIN; Glucose 109 MG/DL (74-106); Hypochromasia Slight; Osmolality,Calculated 279.7 MOS/KG (273-304); Platelet Estimate Normal; Total Protein 6.2 G/DL (6.4-8.3)
[2019-08-30] MEDS: LEVOTHYROXINE 88 MCG TABLET PO SCH (06:34)
[2019-08-30] MEDS: SODIUM CHLORIDE 3% 4 ML NEB RESP TX SCH ×2 (07:32→19:12)
[2019-08-30] MEDS: ALBUTEROL/IPRATROPIUM 3 ML NEB RESP TX SCH ×3 (07:32→23:16)
[2019-08-30] MEDS: PANTOPRAZOLE 40 MG VIAL IV SCH (08:38)
[2019-08-30] MEDS: MULTIVITAMIN (CENTRUM) TABLET PO SCH (08:39)
[2019-08-30] MEDS: FLUTICASONE 50 MCG NASAL SPRAY 16 GM BOTTLE BOTH NARES SCH (08:39)
[2019-08-30] MEDS: DOCUSATE SODIUM 100 MG CAPSULE PO SCH ×2 (08:39→21:39)
[2019-08-30] MEDS: ITRACONAZOLE 100 MG CAPSULE PO SCH ×3 (08:39→21:39)
[2019-08-30] MEDS: predniSONE 10 MG TABLET PO SCH (08:39)
[2019-08-30] MEDS: MULTIVITAMIN (OCUVITE) TABLET PO SCH (08:39)
[2019-08-30] MEDS: RANITIDINE 150 MG TABLET PO SCH ×2 (08:39→21:39)
[2019-08-30] MEDS: methylPREDNISolone SOD SUC 40 MG/1 ML VIAL IM SCH ×2 (09:16→21:40)
[2019-08-30] MEDS: TAMSULOSIN 0.4 MG CAPSULE PO SCH (09:16)
[2019-08-30] MEDS: Umeclidinium-Vilanterol [Anoro Ellipta] INH SCH (11:27)
[2019-08-30] MEDS: ZALEPLON 5 MG CAPSULE PO SCH (21:40)
[2019-08-30] MEDS: DUTASTERIDE 0.5 MG CAPSULE PO SCH (21:40)
[2019-08-30] MEDS: diphenhydrAMINE CAP 25 MG CAPSULE PO SCH (21:48)
[2019-08-31] MEDS: VANCOMYCIN INJ 1,250 MG in SODIUM CHLORIDE 0.9% 250 ML IV SCH (01:00)
[2019-08-31] MEDS: PIPERACILLIN/TAZOBACTAM 3,375 MG in SODIUM CHLORIDE 0.9% 100 ML IV SCH ×3 (02:15→16:45)
[2019-08-31 06:06] LABS: Hematocrit 39.2 VOL% (42.0-52.0); Hemoglobin 12.7 GM/DL (14.0-18.0); Immature Granulocytes % 7.2 %; Immature Granulocytes Absolute 1.87 #; Lymphocytes # 1.2 10*3/uL (1.4-4.0); Lymphocytes % 4.7 % (21.2-54.2); Mean Corpuscular HGB Conc 32.4 GM/DL (32-36); Mean Corpuscular Volume 91.2 FL (87-102); Mean Platelet Volume 10.5 FL (9.6-12.0); NRBC # 0.02 10*3/uL; Neutrophils % 85.1 % (38.7-73.9); Platelet Count 322 T/CUMM (130-400); Red Cell Distribution Width 14.7 % (9.3-17.3); White Blood Count 25.9 T/CUMM (4-12)
[2019-08-31] MEDS: LEVOTHYROXINE 88 MCG TABLET PO SCH (06:12)
[2019-08-31 06:23] LABS: Albumin 1.9 G/DL (3.4-5.0); Bilirubin,Total 0.6 MG/DL (0.2-1.0); Osmolality,Calculated 287.3 MOS/KG (273-304); Total Protein 5.7 G/DL (6.4-8.3)
[2019-08-31 06:28] LABS: Band Neutrophils 3 % (0-10); Hypochromasia 1+; Lymphocytes 7 % (20-55); Metamyelocytes 2 %; Segmented Neutrophils 85 % (50-85); Total Cells Counted 100
[2019-08-31 06:29] LABS: Microcytosis Slight; Platelet Estimate Normal
[2019-08-31] MEDS: ALBUTEROL/IPRATROPIUM 3 ML NEB RESP TX SCH ×2 (07:29→14:42)
[2019-08-31] MEDS: SODIUM CHLORIDE 3% 4 ML NEB RESP TX SCH ×2 (07:29→20:26)
[2019-08-31] MEDS: ITRACONAZOLE 100 MG CAPSULE PO SCH ×3 (09:43→20:41)
[2019-08-31] MEDS: TAMSULOSIN 0.4 MG CAPSULE PO SCH (09:44)
[2019-08-31] MEDS: RANITIDINE 150 MG TABLET PO SCH ×2 (09:44→20:41)
[2019-08-31] MEDS: MULTIVITAMIN (CENTRUM) TABLET PO SCH (09:44)
[2019-08-31] MEDS: DOCUSATE SODIUM 100 MG CAPSULE PO SCH ×2 (09:44→20:41)
[2019-08-31] MEDS: MULTIVITAMIN (OCUVITE) TABLET PO SCH (09:44)
[2019-08-31] MEDS: PANTOPRAZOLE 40 MG VIAL IV SCH (09:45)
[2019-08-31] MEDS: FLUTICASONE 50 MCG NASAL SPRAY 16 GM BOTTLE BOTH NARES SCH (09:45)
[2019-08-31] MEDS: methylPREDNISolone SOD SUC 40 MG/1 ML VIAL IM SCH ×3 (09:47→20:40)
[2019-08-31] MEDS: SODIUM CHLORIDE 0.9% 1,000 ML IV SCH ×2 (09:48)
[2019-08-31] MEDS: Umeclidinium-Vilanterol [Anoro Ellipta] INH SCH (13:57)
[2019-08-31] MEDS: DUTASTERIDE 0.5 MG CAPSULE PO SCH (20:41)
[2019-08-31] MEDS: ZALEPLON 5 MG CAPSULE PO SCH (20:41)
[2019-08-31] MEDS: diphenhydrAMINE CAP 25 MG CAPSULE PO SCH (20:41)
[2019-09-01] MEDS: ALBUTEROL/IPRATROPIUM 3 ML NEB RESP TX SCH ×4 (00:10→23:44)
[2019-09-01] MEDS: PIPERACILLIN/TAZOBACTAM 3,375 MG in SODIUM CHLORIDE 0.9% 100 ML IV SCH ×2 (02:00→09:44)
[2019-09-01 04:17] LABS: Basophils % 0.1 % (0.0-0.8); Hematocrit 39.6 VOL% (42.0-52.0); Hemoglobin 12.7 GM/DL (14.0-18.0); Immature Granulocytes % 7.7 %; Immature Granulocytes Absolute 2.15 #; Lymphocytes # 1.3 10*3/uL (1.4-4.0); Lymphocytes % 4.7 % (21.2-54.2); Mean Corpuscular HGB Conc 32.1 GM/DL (32-36); Mean Corpuscular Volume 91.7 FL (87-102); Mean Platelet Volume 10.4 FL (9.6-12.0); Monocytes % 3.8 % (1.7-12.7); Neutrophils % 83.7 % (38.7-73.9); Platelet Count 333 T/CUMM (130-400); Red Blood Count 4.32 MC/CUMM (3.8-5.5); Red Cell Distribution Width 14.8 % (9.3-17.3)
[2019-09-01 04:41] LABS: Band Neutrophils 2 % (0-10); Lymphocytes 2 % (20-55); Metamyelocytes 1 %; Segmented Neutrophils 91 % (50-85); Total Cells Counted 100
[2019-09-01 04:42] LABS: Anisocytosis 1+; Platelet Estimate Normal
[2019-09-01 04:46] LABS: Calcium 8.1 MG/DL (8.5-10.1); Osmolality,Calculated 285.3 MOS/KG (273-304)
[2019-09-01] MEDS: SODIUM CHLORIDE 3% 4 ML NEB RESP TX SCH ×2 (07:00→23:46)
[2019-09-01] MEDS: LEVOTHYROXINE 88 MCG TABLET PO SCH ×2 (07:18→09:42)
[2019-09-01] MEDS: RANITIDINE 150 MG TABLET PO SCH ×2 (09:43→21:21)
[2019-09-01] MEDS: DOCUSATE SODIUM 100 MG CAPSULE PO SCH ×2 (09:43→21:21)
[2019-09-01] MEDS: ITRACONAZOLE 100 MG CAPSULE PO SCH (09:43)
[2019-09-01] MEDS: FLUTICASONE 50 MCG NASAL SPRAY 16 GM BOTTLE BOTH NARES SCH (09:43)
[2019-09-01] MEDS: MULTIVITAMIN (CENTRUM) TABLET PO SCH (09:43)
[2019-09-01] MEDS: MULTIVITAMIN (OCUVITE) TABLET PO SCH (09:43)
[2019-09-01] MEDS: methylPREDNISolone SOD SUC 40 MG/1 ML VIAL IM SCH ×2 (09:44→21:20)
[2019-09-01] MEDS: TAMSULOSIN 0.4 MG CAPSULE PO SCH (09:44)
[2019-09-01] MEDS: predniSONE 10 MG TABLET PO SCH (09:44)
[2019-09-01] MEDS: PANTOPRAZOLE 40 MG VIAL IV SCH (09:44)
[2019-09-01] MEDS: Umeclidinium-Vilanterol [Anoro Ellipta] INH SCH (11:47)
[2019-09-01] MEDS: SODIUM CHLORIDE 0.9% 1,000 ML IV SCH ×2 (21:20)
[2019-09-01] MEDS: diphenhydrAMINE CAP 25 MG CAPSULE PO SCH (21:21)
[2019-09-01] MEDS: DUTASTERIDE 0.5 MG CAPSULE PO SCH (21:21)
[2019-09-02] MEDS: ZALEPLON 5 MG CAPSULE PO PRN ×2 (00:31→20:46)
[2019-09-02 05:32] LABS: Basophils % 0.1 % (0.0-0.8); Hematocrit 40.3 VOL% (42.0-52.0); Hemoglobin 12.9 GM/DL (14.0-18.0); Immature Granulocytes % 6.6 %; Immature Granulocytes Absolute 2.15 #; Lymphocytes % 6.2 % (21.2-54.2); Mean Corpuscular Volume 92.2 FL (87-102); Mean Platelet Volume 10.1 FL (9.6-12.0); Monocytes % 6.4 % (1.7-12.7); NRBC # 0.03 10*3/uL; Neutrophils % 80.7 % (38.7-73.9); Platelet Count 316 T/CUMM (130-400); Red Blood Count 4.37 MC/CUMM (3.8-5.5); Red Cell Distribution Width 15.2 % (9.3-17.3); White Blood Count 32.4 T/CUMM (4-12)
[2019-09-02 05:49] LABS: Calcium 8.3 MG/DL (8.5-10.1); Osmolality,Calculated 286.1 MOS/KG (273-304)
[2019-09-02] MEDS: LEVOTHYROXINE 88 MCG TABLET PO SCH (06:09)
[2019-09-02 06:10] LABS: Band Neutrophils 1 % (0-10); Hypochromasia Slight; Lymphocytes 10 % (20-55); Microcytosis Slight; Platelet Estimate Adequate; Segmented Neutrophils 86 % (50-85); Total Cells Counted 100
[2019-09-02] MEDS: SODIUM CHLORIDE 0.9% 1,000 ML IV SCH (06:10)
[2019-09-02] MEDS: ALBUTEROL/IPRATROPIUM 3 ML NEB RESP TX SCH ×3 (07:00→23:18)
[2019-09-02] MEDS: SODIUM CHLORIDE 3% 4 ML NEB RESP TX SCH ×2 (07:00→19:54)
[2019-09-02] MEDS: MULTIVITAMIN (OCUVITE) TABLET PO SCH (08:42)
[2019-09-02] MEDS: RANITIDINE 150 MG TABLET PO SCH ×2 (08:43→20:46)
[2019-09-02] MEDS: TAMSULOSIN 0.4 MG CAPSULE PO SCH (08:43)
[2019-09-02] MEDS: PANTOPRAZOLE 40 MG VIAL IV SCH (08:43)
[2019-09-02] MEDS: DOCUSATE SODIUM 100 MG CAPSULE PO SCH ×2 (08:43→20:45)
[2019-09-02] MEDS: MULTIVITAMIN (CENTRUM) TABLET PO SCH (08:43)
[2019-09-02] MEDS: ITRACONAZOLE 100 MG CAPSULE PO SCH (08:43)
[2019-09-02] MEDS: methylPREDNISolone SOD SUC 40 MG/1 ML VIAL IM SCH ×2 (08:44→20:46)
[2019-09-02] MEDS: FLUTICASONE 50 MCG NASAL SPRAY 16 GM BOTTLE BOTH NARES SCH (08:45)
[2019-09-02] MEDS: Umeclidinium-Vilanterol [Anoro Ellipta] INH SCH (12:37)
[2019-09-02] MEDS: diphenhydrAMINE CAP 25 MG CAPSULE PO SCH (20:46)
[2019-09-02] MEDS: DUTASTERIDE 0.5 MG CAPSULE PO SCH (20:46)
[2019-09-03 05:05] LABS: Basophils # 0.2 10*3/uL (0.0-0.2); Basophils % 0.7 % (0.0-0.8); Hematocrit 39.1 VOL% (42.0-52.0); Hemoglobin 12.7 GM/DL (14.0-18.0); Immature Granulocytes % 6.2 %; Immature Granulocytes Absolute 1.58 #; Lymphocytes # 1.3 10*3/uL (1.4-4.0); Lymphocytes % 5.1 % (21.2-54.2); Mean Corpuscular HGB Conc 32.5 GM/DL (32-36); Mean Platelet Volume 10.5 FL (9.6-12.0); Platelet Count 292 T/CUMM (130-400); Red Blood Count 4.25 MC/CUMM (3.8-5.5); Red Cell Distribution Width 15.3 % (9.3-17.3); White Blood Count 25.7 T/CUMM (4-12)
[2019-09-03 05:51] LABS: Calcium 8.3 MG/DL (8.5-10.1); Osmolality,Calculated 280.7 MOS/KG (273-304)
[2019-09-03 06:12] LABS: Band Neutrophils 1 % (0-10); Lymphocytes 5 % (20-55); Segmented Neutrophils 91 % (50-85); Total Cells Counted 100
[2019-09-03 06:13] LABS: Microcytosis Slight; Platelet Estimate Normal
[2019-09-03] MEDS: LEVOTHYROXINE 88 MCG TABLET PO SCH (06:34)
[2019-09-03] MEDS: SODIUM CHLORIDE 3% 4 ML NEB RESP TX SCH ×2 (07:04→19:15)
[2019-09-03] MEDS: ALBUTEROL/IPRATROPIUM 3 ML NEB RESP TX SCH ×3 (07:04→23:20)
[2019-09-03] MEDS: RANITIDINE 150 MG TABLET PO SCH ×2 (08:25→21:37)
[2019-09-03] MEDS: ITRACONAZOLE 100 MG CAPSULE PO SCH (08:25)
[2019-09-03] MEDS: MULTIVITAMIN (OCUVITE) TABLET PO SCH (08:25)
[2019-09-03] MEDS: TAMSULOSIN 0.4 MG CAPSULE PO SCH (08:25)
[2019-09-03] MEDS: DOCUSATE SODIUM 100 MG CAPSULE PO SCH ×2 (08:26→21:37)
[2019-09-03] MEDS: PANTOPRAZOLE 40 MG VIAL IV SCH (08:26)
[2019-09-03] MEDS: MULTIVITAMIN (CENTRUM) TABLET PO SCH (08:26)
[2019-09-03] MEDS: predniSONE 10 MG TABLET PO SCH (08:26)
[2019-09-03] MEDS: FLUTICASONE 50 MCG NASAL SPRAY 16 GM BOTTLE BOTH NARES SCH (08:27)
[2019-09-03] MEDS: methylPREDNISolone SOD SUC 40 MG/1 ML VIAL IM SCH ×2 (08:27→21:37)
[2019-09-03] MEDS: Umeclidinium-Vilanterol [Anoro Ellipta] INH SCH (11:43)
[2019-09-03] MEDS: SODIUM CHLORIDE 0.9% 1,000 ML IV SCH (21:36)
[2019-09-03] MEDS: diphenhydrAMINE CAP 25 MG CAPSULE PO SCH (21:37)
[2019-09-03] MEDS: DUTASTERIDE 0.5 MG CAPSULE PO SCH (21:37)
[2019-09-03] MEDS: ZALEPLON 5 MG CAPSULE PO PRN (21:37)
[2019-09-04] MEDS: LEVOTHYROXINE 88 MCG TABLET PO SCH (05:39)
[2019-09-04] MEDS: SODIUM CHLORIDE 0.9% 1,000 ML IV SCH ×2 (05:39→18:12)
[2019-09-04 05:55] LABS: Basophils # 0.2 10*3/uL (0.0-0.2); Basophils % 0.6 % (0.0-0.8); Hematocrit 40.2 VOL% (42.0-52.0); Hemoglobin 12.7 GM/DL (14.0-18.0); Immature Granulocytes % 5.1 %; Immature Granulocytes Absolute 1.45 #; Lymphocytes % 3.7 % (21.2-54.2); Mean Corpuscular HGB Conc 31.6 GM/DL (32-36); Mean Corpuscular Volume 93.5 FL (87-102); Mean Platelet Volume 10.8 FL (9.6-12.0); Monocytes % 2.9 % (1.7-12.7); Neutrophils % 87.7 % (38.7-73.9); Platelet Count 292 T/CUMM (130-400); Red Cell Distribution Width 15.9 % (9.3-17.3); White Blood Count 28.3 T/CUMM (4-12)
[2019-09-04 06:01] LABS: Calcium 8.5 MG/DL (8.5-10.1); Osmolality,Calculated 288.1 MOS/KG (273-304)
[2019-09-04] MEDS: ALBUTEROL/IPRATROPIUM 3 ML NEB RESP TX SCH ×3 (07:10→23:46)
[2019-09-04] MEDS: SODIUM CHLORIDE 3% 4 ML NEB RESP TX SCH ×2 (07:10→19:02)
[2019-09-04 07:41] LABS: Anisocytosis 2+; Band Neutrophils 2 % (0-10); Hypochromasia Slight; Lymphocytes 7 % (20-55); Macrocytosis 2+; Nucleated Red Blood Cells 1 (0-5); Platelet Estimate Normal; Segmented Neutrophils 91 % (50-85); Target Cells 1+; Total Cells Counted 100
[2019-09-04] MEDS: DOCUSATE SODIUM 100 MG CAPSULE PO SCH ×2 (08:40→21:43)
[2019-09-04] MEDS: MULTIVITAMIN (CENTRUM) TABLET PO SCH (08:40)
[2019-09-04] MEDS: RANITIDINE 150 MG TABLET PO SCH ×2 (08:40→21:43)
[2019-09-04] MEDS: MULTIVITAMIN (OCUVITE) TABLET PO SCH (08:40)
[2019-09-04] MEDS: TAMSULOSIN 0.4 MG CAPSULE PO SCH (08:40)
[2019-09-04] MEDS: ITRACONAZOLE 100 MG CAPSULE PO SCH (08:40)
[2019-09-04] MEDS: methylPREDNISolone SOD SUC 40 MG/1 ML VIAL IM SCH ×2 (08:42→21:43)
[2019-09-04] MEDS: FLUTICASONE 50 MCG NASAL SPRAY 16 GM BOTTLE BOTH NARES SCH (08:42)
[2019-09-04] MEDS: PANTOPRAZOLE 40 MG VIAL IV SCH (08:42)
[2019-09-04] MEDS: Umeclidinium-Vilanterol [Anoro Ellipta] INH SCH (14:15)
[2019-09-04] MEDS: guaiFENesin 200 MG/10 ML UDCUP PO PRN (21:43)
[2019-09-04] MEDS: diphenhydrAMINE CAP 25 MG CAPSULE PO SCH (21:43)
[2019-09-04] MEDS: DUTASTERIDE 0.5 MG CAPSULE PO SCH (21:43)
[2019-09-04] MEDS: ZALEPLON 5 MG CAPSULE PO PRN (21:43)
[2019-09-05] MEDS: LEVOTHYROXINE 88 MCG TABLET PO SCH (06:07)
[2019-09-05] MEDS: SODIUM CHLORIDE 0.9% 1,000 ML IV SCH (06:07)
[2019-09-05] MEDS: SODIUM CHLORIDE 3% 4 ML NEB RESP TX SCH (07:28)
[2019-09-05] MEDS: ALBUTEROL/IPRATROPIUM 3 ML NEB RESP TX SCH ×2 (07:28→14:15)
[2019-09-05] MEDS: PANTOPRAZOLE 40 MG VIAL IV SCH (10:06)
[2019-09-05] MEDS: methylPREDNISolone SOD SUC 40 MG/1 ML VIAL IM SCH (10:06)
[2019-09-05] MEDS: ITRACONAZOLE 100 MG CAPSULE PO SCH (10:07)
[2019-09-05] MEDS: MULTIVITAMIN (CENTRUM) TABLET PO SCH (10:07)
[2019-09-05] MEDS: MULTIVITAMIN (OCUVITE) TABLET PO SCH (10:07)
[2019-09-05] MEDS: FLUTICASONE 50 MCG NASAL SPRAY 16 GM BOTTLE BOTH NARES SCH (10:07)
[2019-09-05] MEDS: DOCUSATE SODIUM 100 MG CAPSULE PO SCH (10:07)
[2019-09-05] MEDS: TAMSULOSIN 0.4 MG CAPSULE PO SCH (10:07)
[2019-09-05] MEDS: predniSONE 10 MG TABLET PO SCH (10:07)
[2019-09-05] MEDS: RANITIDINE 150 MG TABLET PO SCH (10:07)
[2019-09-05 12:16] VITALS: BP 146/76
[2019-09-05] MEDS ORDERED: predniSONE 20 MG TABLET PO SCH (21:00)
== END 2019-09-05 15:25 | disposition swing bed (61) | DRG 868 ==
LOC: N.ED 16:48 → N.EDINP 16:48 → N.4E 20:21
PROVIDERS: ADMIT Family Medicine; ATTEND Family Medicine

== ENCOUNTER 2019-09-28 00:40 | Inpatient (IN) ==
[2019-09-28] MEDS ORDERED: ONDANSETRON 4 MG/2 ML VIAL IV STA (00:55)
[2019-09-28] MEDS ORDERED: MORPHINE 4 MG/1 ML VIAL IV STA (00:55)
[2019-09-28] MEDS ORDERED: methylPREDNISolone SOD SUC 125 MG/2 ML VIAL IV STA (00:55)
[2019-09-28] MEDS ORDERED: ALBUTEROL NEB SOLN 5 MG/ML 20 ML/BOTTLE CONT NEB SCH (01:00)
[2019-09-28 01:07] LABS: INR 1.2; PT Patient Result 13.3 SECS (9.6-12.2)
[2019-09-28 01:10] LABS: Basophils % 0.1 % (0.0-0.8); Hematocrit 39.6 VOL% (42.0-52.0); Hemoglobin 12.7 GM/DL (14.0-18.0); Immature Granulocytes Absolute 0.87 #; Lymphocytes # 0.8 10*3/uL (1.4-4.0); Lymphocytes % 4.8 % (21.2-54.2); Mean Corpuscular HGB Conc 32.1 GM/DL (32-36); Mean Corpuscular Volume 93.4 FL (87-102); Mean Platelet Volume 9.8 FL (9.6-12.0); Monocytes % 2.8 % (1.7-12.7); Neutrophils % 87.3 % (38.7-73.9); Platelet Count 295 T/CUMM (130-400); Red Blood Count 4.24 MC/CUMM (3.8-5.5); Red Cell Distribution Width 18.7 % (9.3-17.3); White Blood Count 17.3 T/CUMM (4-12)
[2019-09-28 01:20] LABS: Albumin 1.6 G/DL (3.4-5.0); Bilirubin,Total 0.5 MG/DL (0.2-1.0); Calcium 8.8 MG/DL (8.5-10.1); Total Protein 7.2 G/DL (6.4-8.3)
[2019-09-28] MEDS ORDERED: SODIUM CHLORIDE 0.9% 500 ML IV STA (01:20)
[2019-09-28 01:30] LABS: Band Neutrophils 4 % (0-10); Lymphocytes 5 % (20-55); Platelet Estimate Normal; Segmented Neutrophils 84 % (50-85); Total Cells Counted 100
[2019-09-28 01:31] LABS: Anisocytosis 1+; Microcytosis 1+; Polychromasia Few
[2019-09-28] MEDS ORDERED: ONDANSETRON 4 MG/2 ML VIAL IV PRN (02:14)
[2019-09-28] MEDS ORDERED: ACETAMINOPHEN 325 MG TABLET PO PRN (02:14)
[2019-09-28] MEDS: SODIUM CHLORIDE 0.9% 1,000 ML IV SCH ×3 (03:22→23:17)
[2019-09-28] MEDS: ALBUTEROL/IPRATROPIUM 3 ML NEB RESP TX SCH ×8 (04:36→23:36)
[2019-09-28 05:46] LABS: Basophils # 0.1 10*3/uL (0.0-0.2); Basophils % 0.8 % (0.0-0.8); Hematocrit 35.1 VOL% (42.0-52.0); Hemoglobin 10.8 GM/DL (14.0-18.0); Immature Granulocytes % 4.5 %; Immature Granulocytes Absolute 0.69 #; Lymphocytes # 0.6 10*3/uL (1.4-4.0); Lymphocytes % 3.6 % (21.2-54.2); Mean Corpuscular HGB Conc 30.8 GM/DL (32-36); Mean Corpuscular Volume 93.6 FL (87-102); Mean Platelet Volume 9.8 FL (9.6-12.0); Monocytes % 2.1 % (1.7-12.7); Platelet Count 254 T/CUMM (130-400); Red Blood Count 3.75 MC/CUMM (3.8-5.5); Red Cell Distribution Width 18.1 % (9.3-17.3); White Blood Count 15.4 T/CUMM (4-12)
[2019-09-28 06:06] LABS: Band Neutrophils 9 % (0-10); Lymphocytes 2 % (20-55); Segmented Neutrophils 86 % (50-85); Total Cells Counted 100
[2019-09-28 06:07] LABS: Microcytosis 1+; Platelet Estimate Adequate
[2019-09-28] MEDS: LEVOTHYROXINE 88 MCG TABLET PO SCH (06:12)
[2019-09-28 06:21] LABS: Albumin 1.3 G/DL (3.4-5.0); Bilirubin,Total 0.5 MG/DL (0.2-1.0); Calcium 8.8 MG/DL (8.5-10.1); Osmolality,Calculated 288.5 MOS/KG (273-304); Total Protein 6.2 G/DL (6.4-8.3)
[2019-09-28] MEDS ORDERED: ALBUTEROL 2.5 MG/3 ML NEB RESP TX SCH (07:00)
[2019-09-28] MEDS ORDERED: ALBUTEROL/IPRATROPIUM 3 ML NEB RESP TX SCH (07:00)
[2019-09-28] MEDS: ITRACONAZOLE 100 MG CAPSULE PO SCH (08:22)
[2019-09-28] MEDS: TAMSULOSIN 0.4 MG CAPSULE PO SCH (08:23)
[2019-09-28] MEDS: LEVOFLOXACIN 500 MG TABLET PO SCH (08:23)
[2019-09-28] MEDS: MULTIVITAMIN (CENTRUM) TABLET PO SCH (08:23)
[2019-09-28] MEDS: FUROSEMIDE 40 MG TABLET PO SCH (08:28)
[2019-09-28] MEDS: IBUPROFEN 600 MG TABLET PO PRN (08:30)
[2019-09-28] MEDS: FAMOTIDINE 20 MG TABLET PO SCH ×2 (08:30→21:04)
[2019-09-28] MEDS: HYDROmorphone 2 MG/1 ML VIAL IV PRN ×2 (08:30→21:10)
[2019-09-28] MEDS: DOCUSATE SODIUM 100 MG CAPSULE PO SCH ×2 (08:30→21:04)
[2019-09-28] MEDS: MULTIVITAMIN (OCUVITE) TABLET PO SCH (08:31)
[2019-09-28] MEDS: methylPREDNISolone SOD SUC 40 MG/1 ML VIAL IV SCH ×2 (08:35→16:37)
[2019-09-28] MEDS: FLUTICASONE 50 MCG NASAL SPRAY 16 GM BOTTLE BOTH NARES SCH (08:35)
[2019-09-28] MEDS ORDERED: PANTOPRAZOLE 40 MG TABLET PO SCH (09:00)
[2019-09-28] MEDS ORDERED: predniSONE 20 MG TABLET PO SCH (09:00)
[2019-09-28] MEDS ORDERED: cefTRIAXone 1,000 MG in SYRINGE 1 EACH IV SCH (17:00)
[2019-09-28] MEDS: SIMVASTATIN 40 MG TABLET PO SCH (21:04)
[2019-09-28] MEDS: DUTASTERIDE 0.5 MG CAPSULE PO SCH (21:04)
[2019-09-28] MEDS: ZALEPLON 5 MG CAPSULE PO SCH (21:04)
[2019-09-29] MEDS: methylPREDNISolone SOD SUC 40 MG/1 ML VIAL IV SCH ×3 (00:53→17:44)
[2019-09-29] MEDS: ALBUTEROL/IPRATROPIUM 3 ML NEB RESP TX SCH ×7 (01:30→22:29)
[2019-09-29] MEDS: HYDROmorphone 2 MG/1 ML VIAL IV PRN ×2 (04:21→18:05)
[2019-09-29] MEDS: LEVOTHYROXINE 88 MCG TABLET PO SCH (06:50)
[2019-09-29 08:20] LABS: Basophils # 0.1 10*3/uL (0.0-0.2); Basophils % 0.9 % (0.0-0.8); Hematocrit 33.5 VOL% (42.0-52.0); Hemoglobin 10.4 GM/DL (14.0-18.0); Immature Granulocytes % 6.4 %; Immature Granulocytes Absolute 0.93 #; Lymphocytes # 1.1 10*3/uL (1.4-4.0); Lymphocytes % 7.5 % (21.2-54.2); Mean Corpuscular Volume 94.1 FL (87-102); Mean Platelet Volume 9.9 FL (9.6-12.0); Monocytes % 4.2 % (1.7-12.7); Platelet Count 239 T/CUMM (130-400); Red Blood Count 3.56 MC/CUMM (3.8-5.5); Red Cell Distribution Width 18.4 % (9.3-17.3); White Blood Count 14.5 T/CUMM (4-12)
[2019-09-29] MEDS: MULTIVITAMIN (CENTRUM) TABLET PO SCH (08:27)
[2019-09-29] MEDS: TAMSULOSIN 0.4 MG CAPSULE PO SCH (08:27)
[2019-09-29] MEDS: LEVOFLOXACIN 500 MG TABLET PO SCH (08:27)
[2019-09-29] MEDS: DOCUSATE SODIUM 100 MG CAPSULE PO SCH ×2 (08:27→21:17)
[2019-09-29] MEDS: ITRACONAZOLE 100 MG CAPSULE PO SCH (08:27)
[2019-09-29] MEDS: MULTIVITAMIN (OCUVITE) TABLET PO SCH (08:27)
[2019-09-29] MEDS: FUROSEMIDE 40 MG TABLET PO SCH (08:27)
[2019-09-29] MEDS: FAMOTIDINE 20 MG TABLET PO SCH ×2 (08:28→21:17)
[2019-09-29] MEDS: IBUPROFEN 600 MG TABLET PO PRN (08:28)
[2019-09-29 08:41] LABS: Band Neutrophils 6 % (0-10); Hypochromasia Slight; Lymphocytes 4 % (20-55); Myelocytes 2 %; Ovalocytes Slight; Platelet Estimate Adequate; Segmented Neutrophils 82 % (50-85); Total Cells Counted 100
[2019-09-29 08:42] LABS: Burr Cells Slight; Microcytosis 1+
[2019-09-29 08:48] LABS: Alanine Aminotransferase 60 U/L (16-61); Albumin 1.4 G/DL (3.4-5.0); Alkaline Phosphatase 72 U/L (45-117); Aspartate Amino Transferase 38 U/L (0-37); Bilirubin,Total < 0.39 MG/DL (0.2-1.0); Blood Urea Nitrogen 40 MG/DL (7-18); Calcium 8.9 MG/DL (8.5-10.1); Estimated Glom Filtration Rate 72 ML/MIN; Glucose 182 MG/DL (74-106); Osmolality,Calculated 293.4 MOS/KG (273-304); Total Protein 6.4 G/DL (6.4-8.3)
[2019-09-29] MEDS: FLUTICASONE 50 MCG NASAL SPRAY 16 GM BOTTLE BOTH NARES SCH (10:05)
[2019-09-29] MEDS: Umeclidinium-Vilanterol [Anoro Ellipta] 1 inh INH SCH (13:10)
[2019-09-29] MEDS: VANCOMYCIN INJ 1,250 MG in SODIUM CHLORIDE 0.9% 250 ML IV SCH (17:44)
[2019-09-29] MEDS: SODIUM CHLORIDE 0.9% 1,000 ML IV SCH (17:47)
[2019-09-29] MEDS: ZALEPLON 5 MG CAPSULE PO SCH (21:17)
[2019-09-29] MEDS: DUTASTERIDE 0.5 MG CAPSULE PO SCH (21:17)
[2019-09-29] MEDS: SIMVASTATIN 40 MG TABLET PO SCH (21:17)
[2019-09-29 23:31] LABS: Apearance,Urine Slightly Hazy (Clear); Bacteria,Urine Occasional /HPF (Few); Bilirubin,Urine Negative (Negative); Blood, Urine Negative (Negative); Glucose,Urine (UA) Negative (Negative); Hyaline Casts,Urine 4 /LPF (0-3); Ketones,Urine Negative (Negative); Mucus,Urine Occasional /LPF (Occasional); Nitrite,Urine Negative (Negative); Protein,Urine Negative; RBC,Urine 2 /HPF (0-4); Renal Epithelial Cells,Urine Occasional /HPF (<1); Urine Color Yellow (Yellow); Urine Specific Gravity 1.019 (1.001-1.035); Urine Urobilinogen < 2.0 EU/DL (0.2-1.0); WBC,Urine 2 /HPF (0-6)
[2019-09-30] MEDS: ALBUTEROL/IPRATROPIUM 3 ML NEB RESP TX SCH ×8 (00:42→22:41)
[2019-09-30] MEDS: HYDROmorphone 2 MG/1 ML VIAL IV PRN ×3 (00:50→17:12)
[2019-09-30] MEDS: methylPREDNISolone SOD SUC 40 MG/1 ML VIAL IV SCH ×3 (00:53→17:04)
[2019-09-30 04:29] LABS: Basophils % 0.1 % (0.0-0.8); Hematocrit 40.3 VOL% (42.0-52.0); Hemoglobin 12.3 GM/DL (14.0-18.0); Immature Granulocytes % 9.7 %; Immature Granulocytes Absolute 1.86 #; Lymphocytes # 1.7 10*3/uL (1.4-4.0); Lymphocytes % 8.9 % (21.2-54.2); Mean Corpuscular HGB Conc 30.5 GM/DL (32-36); Mean Corpuscular Volume 94.2 FL (87-102); Mean Platelet Volume 9.8 FL (9.6-12.0); Monocytes % 4.8 % (1.7-12.7); NRBC # 0.05 10*3/uL; Neutrophils % 76.5 % (38.7-73.9); Platelet Count 288 T/CUMM (130-400); Red Blood Count 4.28 MC/CUMM (3.8-5.5); Red Cell Distribution Width 19.1 % (9.3-17.3); White Blood Count 19.2 T/CUMM (4-12)
[2019-09-30 04:51] LABS: Band Neutrophils 8 % (0-10); Lymphocytes 11 % (20-55); Platelet Estimate Adequate; Segmented Neutrophils 76 % (50-85); Total Cells Counted 100
[2019-09-30 04:52] LABS: Hypochromasia Slight; Microcytosis 1+
[2019-09-30 04:56] LABS: Calcium 9.1 MG/DL (8.5-10.1); Osmolality,Calculated 290.4 MOS/KG (273-304)
[2019-09-30] MEDS: LEVOTHYROXINE 88 MCG TABLET PO SCH (05:33)
[2019-09-30] MEDS: VANCOMYCIN INJ 1,250 MG in SODIUM CHLORIDE 0.9% 250 ML IV SCH ×2 (05:34→17:03)
[2019-09-30] MEDS: FAMOTIDINE 20 MG TABLET PO SCH ×2 (08:00→21:11)
[2019-09-30] MEDS: FLUTICASONE 50 MCG NASAL SPRAY 16 GM BOTTLE BOTH NARES SCH (08:01)
[2019-09-30] MEDS: MULTIVITAMIN (OCUVITE) TABLET PO SCH (08:01)
[2019-09-30] MEDS: MULTIVITAMIN (CENTRUM) TABLET PO SCH (08:01)
[2019-09-30] MEDS: DOCUSATE SODIUM 100 MG CAPSULE PO SCH ×2 (08:01→21:11)
[2019-09-30] MEDS: ITRACONAZOLE 100 MG CAPSULE PO SCH (08:01)
[2019-09-30] MEDS: LEVOFLOXACIN 500 MG TABLET PO SCH (08:01)
[2019-09-30] MEDS: FUROSEMIDE 40 MG TABLET PO SCH (08:01)
[2019-09-30] MEDS: TAMSULOSIN 0.4 MG CAPSULE PO SCH (08:01)
[2019-09-30] MEDS: ALPRAZolam 0.25 MG TABLET PO PRN ×2 (10:32→17:12)
[2019-09-30] MEDS: Umeclidinium-Vilanterol [Anoro Ellipta] 1 inh INH SCH (12:24)
[2019-09-30] MEDS ORDERED: PHYTONADIONE 10 MG/1 ML AMP SUBCUT ONE (12:37)
[2019-09-30] MEDS: SODIUM CHLORIDE 0.9% 1,000 ML IV SCH (14:11)
[2019-09-30] MEDS: ZALEPLON 5 MG CAPSULE PO SCH (21:11)
[2019-09-30] MEDS: SIMVASTATIN 40 MG TABLET PO SCH (21:11)
[2019-09-30] MEDS: DUTASTERIDE 0.5 MG CAPSULE PO SCH (21:11)
[2019-10-01] MEDS: methylPREDNISolone SOD SUC 40 MG/1 ML VIAL IV SCH ×2 (00:17→09:45)
[2019-10-01] MEDS: ALBUTEROL/IPRATROPIUM 3 ML NEB RESP TX SCH ×4 (02:13→10:19)
[2019-10-01] MEDS: ALPRAZolam 0.25 MG TABLET PO PRN ×2 (02:37→08:46)
[2019-10-01] MEDS: HYDROmorphone 2 MG/1 ML VIAL IV PRN ×2 (02:38→08:46)
[2019-10-01 05:32] LABS: Basophils % 0.1 % (0.0-0.8); Hematocrit 33.4 VOL% (42.0-52.0); Hemoglobin 10.7 GM/DL (14.0-18.0); Immature Granulocytes % 11.2 %; Immature Granulocytes Absolute 1.82 #; Lymphocytes # 1.1 10*3/uL (1.4-4.0); Lymphocytes % 6.7 % (21.2-54.2); Mean Corpuscular Volume 94.6 FL (87-102); Mean Platelet Volume 10.2 FL (9.6-12.0); Monocytes % 3.6 % (1.7-12.7); NRBC # 0.12 10*3/uL; Neutrophils % 78.4 % (38.7-73.9); Platelet Count 235 T/CUMM (130-400); Red Blood Count 3.53 MC/CUMM (3.8-5.5); Red Cell Distribution Width 19.5 % (9.3-17.3); White Blood Count 16.3 T/CUMM (4-12)
[2019-10-01 05:52] LABS: Calcium 8.7 MG/DL (8.5-10.1); Osmolality,Calculated 289.4 MOS/KG (273-304)
[2019-10-01] MEDS: LEVOTHYROXINE 88 MCG TABLET PO SCH (06:07)
[2019-10-01] MEDS: VANCOMYCIN INJ 1,250 MG in SODIUM CHLORIDE 0.9% 250 ML IV SCH (06:10)
[2019-10-01 06:19] LABS: Band Neutrophils 5 % (0-10); Lymphocytes 5 % (20-55); Metamyelocytes 1 %; Myelocytes 3 %; Nucleated Red Blood Cells 2 (0-5); Segmented Neutrophils 84 % (50-85); Total Cells Counted 100
[2019-10-01 06:26] LABS: Hypochromasia 1+; Platelet Estimate Normal
[2019-10-01 06:27] LABS: Atypical Lymphocytes Few
[2019-10-01 08:43] VITALS: BP 123/71
[2019-10-01] MEDS: MULTIVITAMIN (CENTRUM) TABLET PO SCH (14:11)
[2019-10-01] MEDS: MULTIVITAMIN (OCUVITE) TABLET PO SCH (14:12)
[2019-10-01] MEDS: FLUTICASONE 50 MCG NASAL SPRAY 16 GM BOTTLE BOTH NARES SCH (14:12)
[2019-10-01] MEDS: FUROSEMIDE 40 MG TABLET PO SCH (14:12)
[2019-10-01] MEDS: LEVOFLOXACIN 500 MG TABLET PO SCH (14:12)
[2019-10-01] MEDS: TAMSULOSIN 0.4 MG CAPSULE PO SCH (14:12)
[2019-10-01] MEDS: DOCUSATE SODIUM 100 MG CAPSULE PO SCH (14:12)
[2019-10-01] MEDS: FAMOTIDINE 20 MG TABLET PO SCH (14:12)
[2019-10-01] MEDS: ITRACONAZOLE 100 MG CAPSULE PO SCH (14:12)
[2019-10-01] MEDS ORDERED: VANCOMYCIN INJ 1,500 MG in SODIUM CHLORIDE 0.9% 500 ML IV SCH (18:00)
== END 2019-10-01 10:57 | disposition expired | DRG 180 ==
LOC: N.ED 00:40 → N.EDINP 00:40 → N.4E 02:46
PROVIDERS: ADMIT Family Medicine; ATTEND Family Medicine